=== PATIENT | female | born 1960 | race Caucasian/White ===

== ENCOUNTER 2024-05-24 19:30 | Emergency (ER) | payer MEDICARE, BC, OTHER, SELFPAY ==
--- OUTSIDE RECORDS SUMMARY | 2024-05-24 19:33 | XMS_ITS | Encounter Summary ---
Author Organization [facility] Address [address] [place] [address] Care Team Providers Care Traveler Changer Name Role Phone Patsy Ta MD Primary Care Provider [phone] Encounter Details Date Type Department Care Team (Late st Contact Info) Description 01/18/1998 Outpatient Historical [facility] Internal Medicine - [facility] [address] [facility] [address] [place] [address] [place] [address] [address] Social History Tobacco Use Types Packs/Day Years Used Date Smoking Tobacco: Never Assessed Comments Unknown Sex and Gender Information Value Date Recorded Sex Assigned at Not on file Legal Sex Female 5:02 AM SHELLFISH GROWER Gender Identity Not on file Sexual Orientation Not on file documented as of this encounter Plan of Treatment Not on file documented as of this encounter Visit Diagnoses Not on filedocumented in this encounter Care Teams Traveler Changer Relationship Specialty [place] [address] [facility] [address] [place] [address] PCP - General 11/06/01 documented as of this encounter
--- OUTSIDE RECORDS SUMMARY | 2024-05-24 19:33 | XMS_ITS | Encounter Summary ---
Author Organization [facility] Address [address] [place] [address] Care Team Providers Care Supervisory Clerk Name Role Phone Patsy Ta MD Primary Care Provider [phone] Encounter Details Date Type Department Care Team (Late st Contact Info) Description 07/16/[address] [facility] Internal Medicine - [facility] [address] [address] [facility] [address] [place] [address] [place] [address] [address] Social History Tobacco Use Types Packs/Day Years Used Date Smoking Tobacco: Never Assessed Comments Unknown Sex and Gender Information Value Date Recorded Sex Assigned at Not on file Legal Sex Female 5:02 AM PROGRAM COORDINATOR EXECUTIVE EDUCATION Gender Identity Not on file Sexual Orientation Not on file documented as of this encounter Plan of Treatment Not on file documented as of this encounter Visit Diagnoses Not on filedocumented in this encounter Care Teams Supervisory Clerk Relationship Specialty [place] [address] [facility] [address] [place] [address] PCP - General 11/06/01 documented as of this encounter
--- OUTSIDE RECORDS SUMMARY | 2024-05-24 19:33 | XMS_ITS | Encounter Summary ---
Author Organization [facility] Address [address] [place] [address] Care Team Providers Care Greenhouse Florist Name Role Phone Patsy Ta MD Primary Care Provider [phone] Encounter Details Date Type Department Care Team (Latest Contact Info) Description 04/05/2007 Outpatient Historical [facility] [address] [address] Other Screening Mammogram Social History Tobacco Use Types Packs/Day Years Used Date Smoking Tobacco: Never Assessed Comments Unknown Sex and Gender Information Value Date Recorded Sex Assigned at Not on file Legal Sex Female 5:02 AM EAP COUNSELOR Gender Identity Not on file Sexual Orientation Not on file documented as of this encounter Plan of Treatment Not on file documented as of this encounter Visit Diagnoses Diagnosis Other screening mammogram documented in this encounter Care Teams Greenhouse Florist Relationship Specialty [place] [address] [facility] [address] [place] [address] PCP - General 11/06/01 documented as of this encounter
--- OUTSIDE RECORDS SUMMARY | 2024-05-24 19:33 | XMS_ITS | Encounter Summary ---
Author Organization [facility] Address [address] [place] [address] Care Team Providers Care Server Programmer Name Role Phone Patsy Ta MD Primary Care Provider [phone] Encounter Details Date Type Department Care Team (Late st Contact Info) Description 12/07/1997 Outpatient Historical [facility] Internal Medicine - [facility] [address] [facility] [address] [place] [address] [place] [address] [address] Social History Tobacco Use Types Packs/Day Years Used Date Smoking Tobacco: Never Assessed Comments Unknown Sex and Gender Information Value Date Recorded Sex Assigned at Not on file Legal Sex Female 5:02 AM REHABILITATION CENTER MANAGER Gender Identity Not on file Sexual Orientation Not on file documented as of this encounter Plan of Treatment Not on file documented as of this encounter Visit Diagnoses Not on filedocumented in this encounter Care Teams Server Programmer Relationship Specialty [place] [address] [facility] [address] [place] [address] PCP - General 11/06/01 documented as of this encounter
--- OUTSIDE RECORDS SUMMARY | 2024-05-24 19:33 | XMS_ITS | Encounter Summary ---
Author Organization [facility] Address [address] [place] [address] Care Team Providers Care Zipper Repairer Name Role Phone Patsy Ta MD Primary Care Provider [phone] Encounter Details Date Type Department Care Team (Late st Contact Info) Description 12/06/1997 Outpatient Historical [facility] Internal Medicine - [facility] [address] [facility] [address] [place] [address] [place] [address] [place] [address] [address] Social History Tobacco Use Types Packs/Day Years Used Date Smoking Tobacco: Never Assessed Comments Unknown Sex and Gender Information Value Date Recorded Sex Assigned at Not on file Legal Sex Female 5:02 AM ENVIRONMENTAL MONITORING TECHNICIAN Gender Identity Not on file Sexual Orientation Not on file documented as of this encounter Plan of Treatment Not on file documented as of this encounter Visit Diagnoses Not on filedocumented in this encounter Care Teams Zipper Repairer Relationship Specialty [place] [address] [facility] [address] [place] [address] PCP - General 11/06/01 documented as of this encounter
--- OUTSIDE RECORDS SUMMARY | 2024-05-24 19:33 | XMS_ITS | Encounter Summary ---
Author Organization [facility] Address [address] [place] [address] Care Team Providers Care Roller Bearing Inspector Name Role Phone Patsy Ta MD Primary Care Provider [phone] Encounter Details Date Type Department Care Team (Latest Contact Info) Description 11/06/2001 Outpatient Historical [facility] [place] [address] [address] SCREENING MAMM-MAILG NEOPL-OTHER (Primary Dx) Social History Tobacco Use Types Packs/Day Years Used Date Smoking Tobacco: Never Assessed Comments Unknown Sex and Gender Information Value Date Recorded Sex Assigned at Not on file Legal Sex Female 5:02 AM DIRECTOR PRESALES Gender Identity Not on file Sexual Orientation Not on file documented as of this encounter Plan of Treatment Not on file documented as of this encounter Visit Diagnoses Diagnosis Other screening mammogram- Primary documented in this encounter Care Teams Roller Bearing Inspector Relationship Specialty [place] [address] [facility] [address] [place] [address] PCP - General 11/06/01 documented as of this encounter
--- OUTSIDE RECORDS SUMMARY | 2024-05-24 19:33 | XMS_ITS | Encounter Summary ---
Author Organization [facility] Address [address] [place] [address] Care Team Providers Care Aeronautical Engineering Professor Name Role Phone Patsy Ta MD Primary Care Provider [phone] Encounter Details Date Type Department Care Team (Late st Contact Info) Description 03/08/1998 Outpatient Historical [facility] Internal Medicine - [facility] [address] [facility] [address] [place] [address] [place] [address] [address] Social History Tobacco Use Types Packs/Day Years Used Date Smoking Tobacco: Never Assessed Comments Unknown Sex and Gender Information Value Date Recorded Sex Assigned at Not on file Legal Sex Female 5:02 AM SALES AND SUPPORT CENTER AGENT Gender Identity Not on file Sexual Orientation Not on file documented as of this encounter Plan of Treatment Not on file documented as of this encounter Visit Diagnoses Not on filedocumented in this encounter Care Teams Aeronautical Engineering Professor Relationship Specialty [place] [address] [facility] [address] [place] [address] PCP - General 11/06/01 documented as of this encounter
--- OUTSIDE RECORDS SUMMARY | 2024-05-24 19:33 | XMS_ITS | Encounter Summary ---
Author Organization [facility] Address [address] [place] [address] Care Team Providers Care A P Mechanic Name Role Phone Patsy Ta MD Primary Care Provider [phone] Encounter Details Date Type Department Care Team (Late st Contact Info) Description 03/02/1998 Outpatient Historical [facility] Internal Medicine - [facility] [address] [facility] [address] [place] [address] [place] [address] [address] Social History Tobacco Use Types Packs/Day Years Used Date Smoking Tobacco: Never Assessed Comments Unknown Sex and Gender Information Value Date Recorded Sex Assigned at Not on file Legal Sex Female 5:02 AM VIDEO SYSTEM REPAIRER Gender Identity Not on file Sexual Orientation Not on file documented as of this encounter Plan of Treatment Not on file documented as of this encounter Visit Diagnoses Not on filedocumented in this encounter Care Teams A P Mechanic Relationship Specialty [place] [address] [facility] [address] [place] [address] PCP - General 11/06/01 documented as of this encounter
--- OUTSIDE RECORDS SUMMARY | 2024-05-24 19:33 | XMS_ITS | Encounter Summary ---
Author Organization [facility] Address [address] [place] [address] Care Team Providers Care Tipping Machine Operator Automatic Name Role Phone Patsy Ta MD Primary Care Provider [phone] Encounter Details Date Type Department Care Team (Latest Contact Info) Description 12/04/2005 Outpatient Historical [facility] [place] [address] [facility] [address] [place] [address] Other Screening Mammogram (Primary Dx) Social History Tobacco Use Types Packs/Day Years Used Date Smoking Tobacco: Never Assessed Comments Unknown Sex and Gender Information Value Date Recorded Sex Assigned at Not on file Legal Sex Female 5:02 AM ADMINISTRATION DEAN Gender Identity Not on file Sexual Orientation Not on file documented as of this encounter Plan of Treatment Not on file documented as of this encounter Visit Diagnoses Diagnosis Other screening mammogram- Primary documented in this encounter Care Teams Tipping Machine Operator Automatic Relationship Specialty [place] [address] [facility] [address] [place] [address] PCP - General 11/06/01 documented as of this encounter
--- OUTSIDE RECORDS SUMMARY | 2024-05-24 19:33 | XMS_ITS | Encounter Summary ---
Author Organization [facility] Address [address] [place] [address] Care Team Providers Care Scrap Kettle Tender Name Role Phone Patsy Ta MD Primary Care Provider [phone] Encounter Details Date Type Department Care Team (Late st Contact Info) Description 07/27/1998 Outpatient Historical [facility] Internal Medicine - [facility] [address] [facility] [address] [place] [address] [place] [address] [address] Social History Tobacco Use Types Packs/Day Years Used Date Smoking Tobacco: Never Assessed Comments Unknown Sex and Gender Information Value Date Recorded Sex Assigned at Not on file Legal Sex Female 5:02 AM CAR SALES REPRESENTATIVE Gender Identity Not on file Sexual Orientation Not on file documented as of this encounter Plan of Treatment Not on file documented as of this encounter Visit Diagnoses Not on filedocumented in this encounter Care Teams Scrap Kettle Tender Relationship Specialty [place] [address] [facility] [address] [place] [address] PCP - General 11/06/01 documented as of this encounter
--- OUTSIDE RECORDS SUMMARY | 2024-05-24 19:33 | XMS_ITS | Encounter Summary ---
Author Organization [facility] Address [address] [place] [address] Care Team Providers Care News Broadcaster Name Role Phone Patsy Ta MD Primary Care Provider [phone] Encounter Details Date Type Department Care Team (Late st Contact Info) Description 12/01/1997 Outpatient Historical [facility] Internal Medicine - [facility] [address] [facility] [address] [place] [address] [place] [address] [address] Social History Tobacco Use Types Packs/Day Years Used Date Smoking Tobacco: Never Assessed Comments Unknown Sex and Gender Information Value Date Recorded Sex Assigned at Not on file Legal Sex Female 5:02 AM ICT SALES ASSISTANT Gender Identity Not on file Sexual Orientation Not on file documented as of this encounter Plan of Treatment Not on file documented as of this encounter Visit Diagnoses Not on filedocumented in this encounter Care Teams News Broadcaster Relationship Specialty [place] [address] [facility] [address] [place] [address] PCP - General 11/06/01 documented as of this encounter
--- OUTSIDE RECORDS SUMMARY | 2024-05-24 19:33 | XMS_ITS | Encounter Summary ---
Author Organization [facility] Address [address] [place] [address] Care Team Providers Care Caseworker Intake Name Role Phone Patsy Ta MD Primary Care Provider [phone] Encounter Details Date Type Department Care Team (Late st Contact Info) Description 10/11/1999 Outpatient Historical [facility] Internal Medicine - [facility] [address] [facility] [address] [place] [address] [place] [address] [address] Social History Tobacco Use Types Packs/Day Years Used Date Smoking Tobacco: Never Assessed Comments Unknown Sex and Gender Information Value Date Recorded Sex Assigned at Not on file Legal Sex Female 5:02 AM WILDLIFE FORENSIC GENETICIST Gender Identity Not on file Sexual Orientation Not on file documented as of this encounter Plan of Treatment Not on file documented as of this encounter Visit Diagnoses Not on filedocumented in this encounter Care Teams Caseworker Intake Relationship Specialty [place] [address] [facility] [address] [place] [address] PCP - General 11/06/01 documented as of this encounter
--- OUTSIDE RECORDS SUMMARY | 2024-05-24 19:33 | XMS_ITS | Encounter Summary ---
Author Organization [facility] Address [address] [place] [address] Care Team Providers Care Loss Prevention Manager Name Role Phone Patsy Ta MD Primary Care Provider [phone] Encounter Details Date Type Department Care Team (Late st Contact Info) Description 08/29/1999 Outpatient Historical [facility] Internal Medicine - [facility] [address] [facility] [address] [place] [address] [place] [address] [address] Social History Tobacco Use Types Packs/Day Years Used Date Smoking Tobacco: Never Assessed Comments Unknown Sex and Gender Information Value Date Recorded Sex Assigned at Not on file Legal Sex Female 5:02 AM CANDLE MOLDER MACHINE Gender Identity Not on file Sexual Orientation Not on file documented as of this encounter Plan of Treatment Not on file documented as of this encounter Visit Diagnoses Not on filedocumented in this encounter Care Teams Loss Prevention Manager Relationship Specialty [place] [address] [facility] [address] [place] [address] PCP - General 11/06/01 documented as of this encounter
--- OUTSIDE RECORDS SUMMARY | 2024-05-24 19:33 | XMS_ITS | Encounter Summary ---
Author Organization [facility] Address [address] [place] [address] Care Team Providers Care Associate Director Regulatory Affairs Name Role Phone Patsy Ta MD Primary Care Provider [phone] Encounter Details Date Type Department Care Team (Latest Contact Info) Description 02/20/1998 Outpatient Historical [facility] Landon Castanead MD [address] [place] [address] Lump or mass in breast (Primary Dx) Social History Tobacco Use Types Packs/Day Years Used Date Smoking Tobacco: Never Assessed Comments Unknown Sex and Gender Information Value Date Recorded Sex Assigned at Not on file Legal Sex Female 5:02 AM POWER ENGINEER Gender Identity Not on file Sexual Orientation Not on file documented as of this encounter Plan of Treatment Not on file documented as of this encounter Visit Diagnoses Diagnosis Lump or mass in breast- Primary documented in this encounter Care Teams Associate Director Regulatory Affairs Relationship Specialty [place] [address] [facility] [address] [place] [address] PCP - General 11/06/01 documented as of this encounter
--- OUTSIDE RECORDS SUMMARY | 2024-05-24 19:33 | XMS_ITS | Encounter Summary ---
Author Organization [facility] Address [address] [place] [address] Care Team Providers Care Senior Research Executive Name Role Phone Patsy Ta MD Primary Care Provider [phone] Encounter Details Date Type Department Care Team (Latest Contact Info) Description 07/26/1999 Outpatient Historical HIS [facility] [place] [address] [facility] [address] [place] [address] Other screening mammogram (Primary Dx) Social History Tobacco Use Types Packs/Day Years Used Date Smoking Tobacco: Never Assessed Comments Unknown Sex and Gender Information Value Date Recorded Sex Assigned at Not on file Legal Sex Female 5:02 AM QUALITY ASSURANCE ENGINEER Gender Identity Not on file Sexual Orientation Not on file documented as of this encounter Plan of Treatment Not on file documented as of this encounter Visit Diagnoses Diagnosis Other screening mammogram- Primary documented in this encounter Care Teams Senior Research Executive Relationship Specialty [place] [address] [facility] [address] [place] [address] PCP - General 11/06/01 documented as of this encounter
--- OUTSIDE RECORDS SUMMARY | 2024-05-24 19:33 | XMS_ITS | Encounter Summary ---
Author Organization [facility] Address [address] [place] [address] Care Team Providers Care Manager Leasing Name Role Phone Patsy Ta MD Primary Care Provider [phone] Encounter Details Date Type Department Care Team (Late st Contact Info) Description 09/04/1998 Outpatient Historical [facility] Internal Medicine - [facility] [address] [facility] [address] [place] [address] [place] [address] [address] Social History Tobacco Use Types Packs/Day Years Used Date Smoking Tobacco: Never Assessed Comments Unknown Sex and Gender Information Value Date Recorded Sex Assigned at Not on file Legal Sex Female 5:02 AM FLIGHT NURSE Gender Identity Not on file Sexual Orientation Not on file documented as of this encounter Plan of Treatment Not on file documented as of this encounter Visit Diagnoses Not on filedocumented in this encounter Care Teams Manager Leasing Relationship Specialty [place] [address] [facility] [address] [place] [address] PCP - General 11/06/01 documented as of this encounter
--- OUTSIDE RECORDS SUMMARY | 2024-05-24 19:33 | XMS_ITS | Clinical Summary ---
Author Organization [facility] Address [address] [place] [address] Phone Care Team Providers Care Hog Handler Name Role Phone Patsy Ta MD Primary Care Provider [phone] Allergies No known active allergies Medications levothyroxine 100 mcg tablet Take 100 mcg by mouth daily contact lens polisher. Active citalopram (CeleXA) 20 mg tablet Take 20 mg by mouth daily at bedtime. Active quinapril (ACCUPRIL) 20 mg tablet Take 40 mg by mouth daily . Active est estrogens-meth ylTESTOSTERone (EEMT) 1.25-2.5 mg tablet Take 1 Tablet by mouth see administration instructions. Active gabapentin (NEURONTIN) 300 mg capsule Take 300 mg by mouth 2 times daily. Active nabumetone (RELAFEN) 500 mg tablet Take 500 mg by mouth 2 times daily. Active simvastatin (ZOCOR) 20 mg tablet Take 20 mg by mouth daily at bedtime. Active fexofenadine (MANUEL) 60 mg tablet Take 60 mg by mouth daily. Active montelukast (SINGULAIR) 10 mg tablet Take 10 mg by mouth daily at bedtime. Active fluticasone propionate (FLONASE) 50 mcg/spray [place], Suspension nasal inhaler Administer 2 Sprays in each nostril daily. Active hydroCHLOROthi azide 25 mg tablet Take 25 mg by mouth daily. Active acetaminophen (TYLENOL) 325 mg tablet Take 325 mg by mouth daily. Active Social History Tobacco Use Types Packs/Day Years Used Date Smoking Tobacco: Never Smokeless Tobacco: Never Alcohol Use Standard Drinks/Week Comments Yes 0 (1 standard drink = 0.6 oz pur e alcohol) occ Comments No Sex and Gender Information Value Date Recorded Sex Assigned at Not on file Legal Sex Female 5:02 AM GUEST SERVICES DIRECTOR Gender Identity Not on file Sexual Orientation Not on file Last Filed Vital Signs Vital Sign Reading Time Taken Comments Blood Pressure 146/82 03/01/2019 12:50 PM GUEST SERVICES DIRECTOR Pulse 62 03/01/2019 12:50 PM GUEST SERVICES DIRECTOR Temperature 36.7 ??C (98 ??F) 03/01/2019 12:21 PM GUEST SERVICES DIRECTOR Respiratory Rate 17 03/01/2019 12:50 PM GUEST SERVICES DIRECTOR Oxygen Saturation 100% 03/01/2019 12:50 PM GUEST SERVICES DIRECTOR Inhaled Oxygen Concentration - - Weight 83.5 kg (184 lb 1.9 oz) 03/01/2019 8:58 A M GUEST SERVICES DIRECTOR Height 162.6 cm (5' 4 ) 02/28/2019 11:26 AM GUEST SERVICES DIRECTOR Body Mass Index 31.6 02/28/2019 11:26 AM GUEST SERVICES DIRECTOR Plan of Treatment Health Maintenance Due Date Last Done Comments FIT-DNA Q 3 years 02/17/2004 FIT/FOBT Q 1 year 02/17/2004 Flex Sig/CT Colonography Q 5 years 02/17/2004 PNEUMOCOCCAL VACCINE 65+ YEA RS (1 of 1 - PCV) 2009 ZOSTER VACCINE (1 of 2) 2009 BREAST CANCER SCREENING 05/24/2021 05/24/2020, 05/14 DTAP/TDAP/TD VACCINES (2 - Td or Tdap) 08/17/2023 INFLUENZA VACCINE (#1) 2023 02/25/2018, 2015 COLORECTAL SCREENING 06/30/2029 07/01/2019 Colorectal Cancer Screening 06/30/2029 RSV VACCINE (60+ or ) (1 - 1-dose 75+ series) 2034 OSTEOPOROSIS SCREENING Completed 05/14/2018 Medical Devices Implanted Type Area Production Clerks Supervisor Device Identifier Shelf Expiration Date Model / Serial / Lot Screw 2.2-S Diam2.2 Lg11mm Implanted:Qty: 1 on 03/01/2019 by Delroy Veliz DPM at [facility] Right: Toe 02/17/2023 S22 [id number] / / [id number] Description:item add c.s Procedures Procedure Name Priority Date/Time Associated Diagnosis Comments MAMMO SCREEN BILAT W OR WO CAD Routine 05/24/2020 3:17 PM GUEST SERVICES DIRECTOR Breast cancer screening by mammogram XR DEXA BONE DENSITY AXIAL 1 OR MORE SITES Routine 05/14/2018 9:03 AM GUEST SERVICES DIRECTOR Screening for osteoporosis from Last 3 Months or Most Recently Relevant to Health Maintenance Results * MAMMO SCREEN BILAT W OR WO CAD (05/24/2020 3:17 PM GUEST SERVICES DIRECTOR) Anatomical Region Laterality Modality Breast Bilateral Mammography 05/24/2020 3:17 PM GUEST SERVICES DIRECTOR Impressions 05/24/2020 3:53 PM GUEST SERVICES DIRECTOR IMPRESSION: No mammographic evidence of malignancy. RECOMMENDATIONS: Routine screening mammogram in one year. DICTATION LOCATION: [facility] Narrative 05/24/2020 3:53 PM GUEST SERVICES DIRECTOR MAMMO SCREEN BILAT W OR WO CAD DATE: 05/24/2020 3:17 PM HISTORY: Routine screening. TECHNIQUE: Full field digital craniocaudal and mediolateral oblique projections of both breasts were obtained. Computer aided diagnosis was performed. COMPARISON: 2016 and 2014. BREAST COMPOSITION: Scattered fibroglandular densities. FINDINGS: No suspicious mass, suspicious microcalcifications, or architectural distortion in either breast is identified. Since the prior study, there has been no significant interval change. The computer aided diagnosis detects no significant abnormality. OVERALL FINAL ASSESSMENT: ??BI-RADS CATEGORY 1 : Negative Procedure Note Brayan Aguirre MD - 05/24/2020 MAMMO SCREEN BILAT W OR WO CAD DATE: 05/24/2020 3:17 PM HISTORY: Routine screening. TECHNIQUE: Full field digital craniocaudal and mediolateral oblique projections of both breasts were obtained. Computer aided diagnosis was performed. COMPARISON: 2016 and 2014. BREAST COMPOSITION: Scattered fibroglandular densities. FINDINGS: No suspicious mass, suspicious microcalcifications, or architectural distortion in either breast is identified. Since the prior study, there has been no significant interval change. The computer aided diagnosis detects no significant abnormality. OVERALL FINAL ASSESSMENT: BI-RADS CATEGORY 1 : Negative IMPRESSION: No mammographic evidence of malignancy. RECOMMENDATIONS: Routine screening mammogram in one year. DICTATION LOCATION: [facility] us Patsy Ta MD MAMMO ORDERABLES Final Resul t * XR DEXA BONE DENSITY AXIAL 1 OR MORE SITES (05/14/2018 9:03 AM GUEST SERVICES DIRECTOR) Anatomical Region Laterality Modality Computed Radiogr aphy 05/14/2018 9:12 AM GUEST SERVICES DIRECTOR Narrative 05/14/2018 1:36 PM GUEST SERVICES DIRECTOR SUMMARY DEXA REPORT DATE: 05/14/2018 9:03 AM INDICATION: Post menopausal. History of thyroid medication and family history of osteoporosis. FINDINGS: The lowest bone mineral density is in the lumbar spine measuring 1.005 g/sq cm with a young adult T score of -1.4. This represents osteopenia. Please refer to the full report available in [facility] under the PACS Images tab. ??If a faxed copy is needed, please call [phone]. DICTATION LOCATION: [address] Procedure Note Sinan Burgess MD - 05/14/2018 SUMMARY DEXA REPORT DATE: 05/14/2018 9:03 AM INDICATION: Post menopausal. History of thyroid medication and family history of osteoporosis. FINDINGS: The lowest bone mineral density is in the lumbar spine measuring 1.005 g/sq cm with a young adult T score of -1.4. This represents osteopenia. Please refer to the full report available in [facility] under the PACS Images tab. If a faxed copy is needed, please call [phone]. DICTATION LOCATION: Location [address] [place] [address] Patsy Ta MD DIAGNOSTIC IMAGING ORDERABLE S Final Result from Last 3 Months or Most Recently Relevant to Health Maintenance Insurance [employer] [facility] [employer] Advance Directives For more information, please contact: [phone] * Full Code (Latest Code Status on File) Date Activated Date Inactivated Comments 03/01/2019 9:30 AM 03/01/2019 3:07 PM Care Teams Hog Handler Relationship Specialty [place] [address] [place] [address] PCP - General 11/06/01
--- OUTSIDE RECORDS SUMMARY | 2024-05-24 19:33 | XMS_ITS | Encounter Summary ---
Author Organization [facility] Address [address] [place] [address] Care Team Providers Care Quality Supervisor Name Role Phone Patsy Ta MD Primary Care Provider [phone] Encounter Details Date Type Department Care Team (Late st Contact Info) Description 08/29/1998 Outpatient Historical [facility] Guillermo Galvez, [address] [facility] [address] [place] [address] Er, Authorized P NO ADDRESS ON FILE Abdominal pain, other specified site (Primary Dx) Social History Tobacco Use Types Packs/Day Years Used Date Smoking Tobacco: Never Assessed Comments Unknown Sex and Gender Information Value Date Recorded Sex Assigned at Not on file Legal Sex Female 5:02 AM SWAGER OPERATOR Gender Identity Not on file Sexual Orientation Not on file documented as of this encounter Plan of Treatment Not on file documented as of this encounter Visit Diagnoses Diagnosis Abdominal pain, other specified site- Primary documented in this encounter Care Teams Quality Supervisor Relationship Specialty [place] [address] [place] [id number] PCP - General 11/06/01 documented as of this encounter
--- OUTSIDE RECORDS SUMMARY | 2024-05-24 19:33 | XMS_ITS | Encounter Summary ---
Author Organization [facility] Address [address] [place] [address] Care Team Providers Care Buildings And Grounds Superintendent Name Role Phone Patsy Ta MD Primary Care Provider [phone] Encounter Details Date Type Department Care Team (Latest Contact Info) Description 02/10/2004 Outpatient Historical [facility] [place] [address] [address] SCREENING MAMM-MAILG NEOPL-OTHER (Primary Dx) Social History Tobacco Use Types Packs/Day Years Used Date Smoking Tobacco: Never Assessed Comments Unknown Sex and Gender Information Value Date Recorded Sex Assigned at Not on file Legal Sex Female 5:02 AM PROOF SORTER Gender Identity Not on file Sexual Orientation Not on file documented as of this encounter Plan of Treatment Not on file documented as of this encounter Visit Diagnoses Diagnosis Other screening mammogram- Primary documented in this encounter Care Teams Buildings And Grounds Superintendent Relationship Specialty [place] [address] [facility] [address] [place] [address] PCP - General 11/06/01 documented as of this encounter
--- OUTSIDE RECORDS SUMMARY | 2024-05-24 19:33 | XMS_ITS | Data Portability ---
Author Organization [facility] Address [address] [place] [address] Care Team Providers Care Teacher Selection Specialist Name Role Phone LORRAINE JO Referring Provider Assessment No assessment recorded. Plan of Treatment Reminders Order Date Submit Date Provider Last Modified By Organization Details Last Modified Time Details Appointments None record ed. Lab None record ed. Referral None record ed. Procedures None record ed. Surgeries None record ed. Imaging None record ed. Medication Orders None record ed. Patient TargetsNo targets recorded. Patient InstructionsNo instructions recorded. Reason for Referral None Reported. Procedures Surgical History Date Name Laterality Status Provider Name and Address Organization Details Recorded Time 03/30/2019 Sleep Study completed Bill De La Cruz [facility] 03/31/2019 12:24:52 Imaging Results None recorded. Procedure Notes None recorded. Medical Equipment None Reported. Vitals Date Recorded Body height Body mass index (BMI) Body weight Provider Name and Address Organization Details Last Updated DateTime 03/30/2019 162.56 cm 31.4 kg/m2 44707.4 g Jeffery Jefferson [facility] 03/30/2019 12:02:27 Social History None recorded. Functional Status None recorded. Mental Status None recorded. Family History Nothing Reported. Medical History No medical history recorded. Gynecological HistoryNo gynecological history recorded. Obstetrics History GPAL:G 0 P 0 0 0 0 Past Encounters Encounter ID Performer Location Encounter Start Date Encounter Closed Date Diagnosis/Indication Diagnosis SNOMED-CT Code Diagnosis ICD10 Code Diagnosis Note [id number] Landon Cornejo MD DAB, F.C.C.P. [id number] [id number][id number] [place] [address] 03/30/2019 11:38:40 03/31/2019 11:48:52 Obstructive sleep apnea of adult 3290255034 103 G47.33 Health Concerns Section Related Observation LastModified by Organization Detai ls LastModified Time None Recorded Concern Status LastModified by Organization Details LastModified Time None Recorded Advance Directives Directive None Recorded Payers Encounter Date Sequence Insurance Name Policy Number Policy Sam Covered Member ID Sam Member ID Guarantor Name 03/30/2019 1 [place] [employer] [facility] [employer] [id number] Elisa Iglesias [id number] Elias Iglesias OBGyn Episode No OBEpisode recorded.
--- OUTSIDE RECORDS SUMMARY | 2024-05-24 19:33 | XMS_ITS | Encounter Summary ---
Author Organization [facility] Address [address] [place] [address] Care Team Providers Care Staff Assistant Name Role Phone Patsy Ta MD Primary Care Provider [phone] Encounter Details Date Type Department Care Team (Late st Contact Info) Description 02/20/1998 Outpatient Historical [facility] MRI DEPT Landon Gibbs MD [address] [place] [id number] Social History Tobacco Use Types Packs/Day Years Used Date Smoking Tobacco: Never Assessed Comments Unknown Sex and Gender Information Value Date Recorded Sex Assigned at Not on file Legal Sex Female 5:02 AM REFRIGERATION MECHANIC Gender Identity Not on file Sexual Orientation Not on file documented as of this encounter Plan of Treatment Not on file documented as of this encounter Visit Diagnoses Not on filedocumented in this encounter Care Teams Staff Assistant Relationship Specialty [place] [address] [facility] [address] [place] [address] PCP - General 11/06/01 documented as of this encounter
--- OUTSIDE RECORDS SUMMARY | 2024-05-24 19:33 | XMS_ITS | Encounter Summary ---
Author Organization [facility] Address [address] [place] [address] Care Team Providers Care Drill Press Operator Helper Name Role Phone Patsy Ta MD Primary Care Provider [phone] Encounter Details Date Type Department Care Team (Latest Contact Info) Description 03/21/1998 Outpatient Historical [facility] Landon Gibbs MD [address] [place] [id number] Inguinal hernia without mention of obstruction or gangrene, unilateral or unspecified, (not specified as recurrent) (Primary Dx) Social History Tobacco Use Types Packs/Day Years Used Date Smoking Tobacco: Never Assessed Comments Unknown Sex and Gender Information Value Date Recorded Sex Assigned at Not on file Legal Sex Female 5:02 AM CALCULATING MACHINE MECHANIC Gender Identity Not on file Sexual Orientation Not on file documented as of this encounter Plan of Treatment Not on file documented as of this encounter Visit Diagnoses Diagnosis Inguinal hernia without mention of obstruction or gangrene, unilateral or unspecified, (not specified as recurrent)- Primary documented in this encounter Care Teams Drill Press Operator Helper Relationship Specialty [place] [address] [place] [address] PCP - General 11/06/01 documented as of this encounter
[2024-05-24 19:53] VITALS: BP 145/77; PULSE 64; RESP 16; TEMP 36.4; O2SAT 100
--- NOTE | 2024-05-24 19:54 | ED_ITS ---
HPI - Female Genitourinary General Chief complaint: Urogenital-Female Stated complaint: UTI Time Seen by Provider: 05/24/24 19:55 Source: patient, RN notes reviewed and old records reviewed Mode of arrival: ambulatory Limitations: no limitations Related Data Home Medications ?Medication ?Instructions ?Recorded ?Confirmed ?Last Taken ?Type budesonide 3 mg mg PO 05/24/24 Unknown History capsule,delayed,extended release budesonide-formoterol HFA 160 inhalation 05/24/24 Unknown History mcg-4.5 mcg/actuation aerosol inhaler gabapentin 300 mg capsule mg 05/24/24 Unknown History levothyroxine 100 mcg tablet mcg 05/24/24 Unknown History meloxicam 7.5 mg tablet mg 05/24/24 Unknown History montelukast 10 mg tablet mg 05/24/24 Unknown History Allergies Allergy/AdvReac Type Severity Reaction Status Date / Time No Known Allergies Allergy Unverified 05/24/24 20:01 Review of Systems Review of Systems: All systems reviewed & are unremarkable except as noted in HPI and below Constitutional: Constitutional: Reports no additional constitutional complaints ENT: Reports system reviewed and no additional complaints, except as documented Cardiovascular: Cardiovascular: Reports no additional cardiovascular complaints Respiratory: Respiratory: Reports no additional respiratory complaints Gastrointestinal: Gastrointestinal: Reports no additional gastrointestinal complaints PMFSH Comments At the time of my signature, I reviewed and agree with the nursing past medical, surgical, social, and family history. There is no relevant family history pertinent to the patient complaint. Exam Const: General: cooperative, no acute distress, alert and awake Or ientation/consciousness: oriented to person, oriented to place and oriented to time HENMT: Head: normal to inspection Resp: Effort & Inspection: normal respiratory effort and able to speak in complete sentences Auscultation: clear to auscultation bilaterally, no crackles, no rales, no rhonchi and no wheezes Cardio: Palpation: normal PMI Rate: regular rate Rhythm: regular rhythm Heart sounds: S1 normal heart sound present and S2 normal heart sound present Neuro: General: oriented to person, oriented to place and oriented to time Cranial nerves: Yes CN's II-XII intact bilaterally Psych: Appearance: grossly normal Thought process: Normal thought process present Insight: Good insight present (Psych) Judgement: Good judgement present (Psych) Course Course Level of Care: Express Care Visit Vital Signs Vital signs: Vital Signs Temperature 97.6 F 05/24/24 19:53 Pulse Rate 64 05/24/24 19:53 Respiratory Rate 16 05/24/24 19:53 Blood Pressure 145/77 H 05/24/24 19:53 Pulse Oximetry 100 05/24/24 19:53 Oxygen Delivery Room Air 05/24/24 19:53 Temperature 97.6 F 05/24/24 19:53 Pulse Rate 64 05/24/24 19:53 Respiratory Rate 16 05/24/24 19:53 Blood Pressure 145/77 H 05/24/24 19:53 Pulse Oximetry 100 05/24/24 19:53 Oxygen Delivery Room Air 05/24/24 19:53 Reviewed Discharge Plan Discharge Clinical Impression: Acute UTI Patient Disposition: Home, Self-Care Condition: Stable Instructions: Antibiotic Form, Urinary Tract Infection in Women (ED) Additional Instructions: take medications as prescribed. Follow with primary care provider. Emergency department for any new or worse symptoms Patient Language: New Zealander Prescriptions: New nitrofurantoin monohyd/m-cryst [Macrobid] 100 mg capsule 100 mg PO Q12H 5 Days Qty: 10 0RF Rx Instructions: must administer with a meal/food No Action meloxicam 7.5 mg tablet levothyroxine 100 mcg tablet gabapentin 300 mg capsule montelukast 10 mg tablet budesonide 3 mg capsule,delayed,extend.release PO budesonide-formoterol 160-4.5 mcg/actuation HFA aerosol inhaler INHALATION Follow-up/Referrals: Keyon,Patsy Escamilla [Other] - 2 Weeks Time of Disposition: 20:06
[2024-05-24 20:03] LABS: EDUAAPPEAR Cloudy; EDUABILI Negative (Negative); EDUABLOOD 3+ (Negative); EDUACOLOR1 Yellow; EDUAGLUCOSE Negative (Negative); EDUAKETONE Negative (Negative); EDUALEUKO 3+ (Negative); EDUANITRATE Positive (Negative); EDUAPROTEIN 2+ (Negative); EDUAUROBILI 0.2
== END 2024-05-24 20:20 | disposition home or self-care (01) ==
PROVIDERS: Emergency Provider Nurse Practitioner Family
DX: N39.0 Urinary tract infection, site not specified (principal); B96.20 Unspecified Escherichia coli [E. coli] as the cause of diseases classified elsewhere; E03.9 Hypothyroidism, unspecified
CPT/HCPCS: 81003; 87086; 87186; 99203; G0463

== ENCOUNTER 2024-10-07 18:16 | Emergency (ER) | payer OTHER, BC, SELFPAY ==
[2024-10-07 18:17] VITALS: BP 126/78; PULSE 86; RESP 14; TEMP 37.1; O2SAT 94
--- NOTE | 2024-10-07 19:04 | ED_ITS ---
HPI - General Adult General Chief complaint: Alcohol Stated complaint: etoh+ Time Seen by Provider: 10/07/24 18:53 History of Present Illness HPI narrative: This is a 64-year-old female presenting ED for alcohol intoxication. Patient passed out in her car earlier. [place] police found her and called EMS and recommended she come to the hospital to be evaluated. At this time the patient is resting comfortably in bed. She admits to drinking wine. She has no physical complaints. She does not want to be in the hospital. Related Data Home Medications ?Medication ?Instructions ?Recorded ?Confirmed ?Last Taken ?Type budesonide 3 mg mg PO 05/24/24 Unknown History capsule,delayed,extended release budesonide-formoterol HFA 160 inhalation 05/24/24 Unknown History mcg-4.5 mcg/actuation aerosol inhaler gabapentin 300 mg capsule mg 05/24/24 Unknown History levothyroxine 100 mcg tablet mcg 05/24/24 Unknown History meloxicam 7.5 mg tablet mg 05/24/24 Unknown History montelukast 10 mg tablet mg 05/24/24 Unknown History Allergies Allergy/AdvReac Type Severity Reaction Status Date / Time No Known Allergies Allergy Unverified 05/24/24 20:01 Exam Narrative: APPEARANCE: No apparent distress. Head: atraumatic. EYES: EOMI, NOSE: Atraumatic NECK: Trachea midline RESPIRATORY: No increased rate of breathing clear to auscultation CARDIOVASCULAR: RRR, no peripheral edema ABDOMINAL: Non-distended soft nontender MUSCULOSKELETAl: No obvious deformities NEURO: Alert. Moving 4/4 extremities SKIN:: Warm, dry. Normal color PSYCHIATRIC: Normal affect Course Vital Signs Vital signs: Vital Signs Temperature 98.8 F 10/07/24 18:17 Pulse Rate 86 10/07/24 18:17 Respiratory Rate 14 10/07/24 18:17 Blood Pressure 126/78 10/07/24 18:17 Pulse Oximetry 94 10/07/24 18:17 Oxygen Delivery Room Air 10/07/24 18:17 Temperature 98.8 F 10/07/24 18:17 Pulse Rate 86 10/07/24 18:17 Respiratory Rate 14 10/07/24 18:17 Blood Pressure 126/78 10/07/24 18:17 Pulse Oximetry 94 10/07/24 18:17 Oxygen Delivery Room Air 10/07/24 18:17 Medical Decision Making MDM Narrative Medical decision making narrative: -Course: 64-year-old female presenting intoxicated with alcohol. She is alert and oriented. She is able to walk with steady gait. Her vital signs are stable physical exam is benign. Patient does not want to be in the hospital. I recheck her son and he is coming to pick her up. Patient discharged to family custody. Given return precautions. Vital Signs Vital Signs: Vital Signs Temperature 98.8 F 10/07/24 18:17 Pulse Rate 86 10/07/24 18:17 Respiratory Rate 14 10/07/24 18:17 Blood Pressure 126/78 10/07/24 18:17 Pulse Oximetry 94 10/07/24 18:17 Oxygen Delivery Room Air 10/07/24 18:17 Temperature 98.8 F 10/07/24 18:17 Pulse Rate 86 10/07/24 18:17 Respiratory Rate 14 10/07/24 18:17 Blood Pressure 126/78 10/07/24 18:17 Pulse Oximetry 94 10/07/24 18:17 Oxygen Delivery Room Air 10/07/24 18:17 Discharge Plan Discharge Clinical Impression: Alcoholic intoxication Patient Disposition: Home Condition: Stable Instructions: Antibiotic Form, Abuse of Alcohol (ED) Additional Instructions: Please [facility]up with the [facility] for further treatment of your alcohol use disorder. Return if you develop any new or worsening symptoms. Patient Language: Swedish Prescriptions: No Action meloxicam 7.5 mg tablet levothyroxine 100 mcg tablet gabapentin 300 mg capsule montelukast 10 mg tablet budesonide 3 mg capsule,delayed,extend.release PO budesonide-formoterol 160-4.5 mcg/actuation HFA aerosol inhaler INHALATION nitrofurantoin monohyd/m-cryst [Macrobid] 100 mg capsule 100 mg PO Q12H 5 Days Qty: 10 0RF Rx Instructions: must administer with a meal/food Follow-up/Referrals: Keyon,Patsy Escamilla [Other]
[2024-10-07 20:08] VITALS: BP 134/81; PULSE 79; RESP 18; O2SAT 96
== END 2024-10-07 20:11 | disposition home or self-care (01) ==
LOC: ANHED 19:18
PROVIDERS: Emergency Provider Emergency Medicine
DX: F10.129 Alcohol abuse with intoxication, unspecified (principal)
CPT/HCPCS: 99281

== ENCOUNTER 2025-04-04 10:01 | Outpatient (CLI) | payer OTHER, BC, SELFPAY ==
--- OUTSIDE RECORDS SUMMARY | 2025-01-25 08:40 | XMS_ITS ---
Author Organization [facility]ly [facility], later [facility] Address [address] [place] [address] Phone [phone] Care Team Providers Care Cut Out Machine Operator Name Role Phone Nam Uribe APRN Primary Care Provider REASON FOR VISIT 1 month MAT Vivitrol. Scheduling in advance b/c it will need to be delivered from [facility] in advance. Social History Sex Observation Social History Observation Description Sex Observation Female Sexual Orientation Social History Observation Description Sexual Orientation Straight or heterose xual Gender Identity Social History Observation Description Gender Identity Female Encounters Date Time Type Facility Location Provider Diagnosis 01/25/2025 08:40 AM Office Visit [facility] [place] [place] [address] Nam Uribe Plan Of Treatment Next Appt Details Provider Name:Giovanni ochoa, 05/02/2025 09:00:00 AM, [place] [address] [place], [address], Medical (General) History Medical History History ICD Code Hypothyroidism asthma colitis endometriosis Vitamin b12 deficiency Alcohol use disorder Irritable bowel syndrome Hypertension Surgical History Surgery Date(Month/Year) TOTAL HYSTERECTOMY 04/2000 cholecystectomy cervical fusion maniscus repair right and left c section hernia repair x 2 bunionectomy gastric bypass Hospitalization History Reason Date(Month/Year) Progress Notes * Elisa IGLESIAS SDOB:1960 (65 yo F)Acc No.[id number]:01/25/2025 UNLOCKED PROGRESS NOTE Patient: Elisa VINSON Provider: Quan Uribe, MSN, ASSISTANT SPA MANAGER, COURT USHER-C :1960 A ge:64 Y S ex:Female Date:01/25/2025 Address:[address] [place], [place] [id number] Subjective: * Chief Complaints: * 1 . 1 month MAT Vivitrol. Scheduling in advance b/c it will need to be delivered from [facility] in advance.. * Screening: * * Medical History: Objective: * Vitals: Assessment: Plan: * Treatment: * Care Plan Details* * Electronic signature of Belén Uribe APRN, [id number] on 04/04/2025 at 11:32 AM INCOMING INSPECTOR Sign off status: Pending * Provider: Quan Uribe, MSN, ASSISTANT SPA MANAGER, COURT USHER-C Date: 1 Generated for Humberto betancourt/Josue/Elenaitting on: 06/05/2024 11:32 AM INCOMING INSPECTOR
--- OUTSIDE RECORDS SUMMARY | 2025-01-25 09:00 | XMS_ITS ---
Author Organization [facility] Address [address] [place] [address] Phone [phone] Care Team Providers Care Medical Csr Name Role Phone Nam Uribe APRN Primary Care Provider Giovanni Zarate [phone] REASON FOR VISIT q monthly B12 injection Social History Sex Observation Social History Observation Description Sex Observation Female Sexual Orientation Social History Observation Description Sexual Orientation Straight or heterose xual Gender Identity Social History Observation Description Gender Identity Female Encounters Date Time Type Facility Location Provider Diagnosis 01/25/2025 09:00 AM Office Visit [facility] [address] [place] [address] Giovanni Zarate Plan Of Treatment Next Appt Details Provider Name:Giovanni ochoa, 05/02/2025 09:00:00 AM, [address], [place], [address], Medical (General) History Medical History History ICD Code Hypothyroidism asthma colitis endometriosis Vitamin b12 deficiency Alcohol use disorder Irritable bowel syndrome Hypertension Surgical History Surgery Date(Month/Year) TOTAL HYSTERECTOMY 04/2000 cholecystectomy cervical fusion maniscus repair right and left c section hernia repair x 2 bunionectomy gastric bypass Hospitalization History Reason Date(Month/Year) Progress Notes * Elisa IGLESIAS SDOB:1960 (65 yo F)Acc No.[id number]:01/25/2025 UNLOCKED PROGRESS NOTE Progress Note Patient: Elisa VINSON Provider: Jeanette Zarate APN :1960 A ge:64 Y S ex:Female Date:01/25/2025 Address:[address] [place], [place] [address] Pcp:Nam Uribe Subjective: * Chief Complaints: * 1 . q monthly B12 injection. * Screening: * * Medical History: Objective: * Vitals: Assessment: Plan: * Treatment: * * Electronic signature of Dmitry Zarate on 04/04/2025 at 11:32 AM MACHINE FILLER SERVICER Sign off status: Pending * Provider: Jeanette Zarate APN Date: 1 Generated for Humberto betancourt/Josue/eTransmitting on: 06/05/2024 11:32 AM MACHINE FILLER SERVICER
--- NOTE | 2025-04-04 | ECG_ITS ---
Test Date: 2025-04-04 10:38:56 Measurements Intervals Brilliant Rate: 74 P: 45 WI: 129 QRS: 54 QRSD: 90 T: 59 QT: 383 QTc: 426 Interpretive Statements SINUS RHYTHM BASELINE WANDER- V4-V6 NORMAL ECG No previous ECG available for comparison Electronically Signed On 04-04-2025 11:32:07 ENGINEERING LEADER by Fortino Kirk D.O.
--- OUTSIDE RECORDS SUMMARY | 2025-04-04 09:00 | XMS_ITS ---
Author Organization [facility] Address [address] [place] [address] Phone [phone] Care Team Providers Care Medical Office Administrator Name Role Phone Nam Uribe APRN Primary Care Provider Giovanni Zarate Unavailable Allergies No Known Allergies REASON FOR VISIT q monthly B12 injection Medications Medication SIG (Take, Route, Frequency, Duration) Notes Start Date End Date Diagnosis (ICD Code) Status Fexofenadine HCl 180 MG Tablet 1 tablet Swallow whole with water; do not take with fruit juices. Orally Once a day Adult general medical exam (ICD_10 - Z00.00) Active Gabapentin 300 MG Capsule 1 capsule Orally Once a day Adult general medical exam (ICD_10 - Z00.00) Active Ocuvite Adult 50+ - Capsule as directed Orally Adult general medical exam (ICD_10 - Z00.00) Active traZODone HCl 100 MG Tablet 1 tablet at bedtime as needed Orally Once a day Adult general medical exam (ICD_10 - Z00.00) Active Montelukast Sodium 10 MG Tablet 1 tablet Orally Once a day in the evening Adult general medical exam (ICD_10 - Z00.00) Active Allergy Nasal [place] 205.5 MCG/SPRAY Solution 2 sprays (1 spray in each nostril) Nasally Twice a day Adult general medical exam (ICD_10 - Z00.00) Active Acamprosate Calcium 333 MG Tablet Delayed Release 2 tablets Orally 3 times a day; Duration: 30 days 5 Alcohol use disorder (ICD_10 - F10.99) Active Vitamin D3 250 MCG ([address] UT) Capsule 1 capsule Orally Once a day Adult general medical exam (ICD_10 - Z00.00) Active Budesonide-Formote rol Fumarate 160-4.5 MCG/ACT Aerosol as directed Inhalation Adult general medical exam (ICD_10 - Z00.00) Active Escitalopram Oxalate 20 MG Tablet 1 tablet Orally Once a day Adult general medical exam (ICD_10 - Z00.00) Active Budesonide 3 MG Capsule Delayed Release Particles 3 capsules Orally in the morning; Duration: 30 days Diverticulitis (ICD_10 - K57.92) Active hydrOXYzine Pamoate 25 MG Capsule 1-2 capsules Orally every 4 hours as needed for anxiety, agitation, or inability to sleep. Do not give within 4 hours of diphenhydramine.; Duration: 14 days 5 Depression (ICD_10 - F32.9) Active Vivitrol 380 MG Suspension Reconstituted as directed Intramuscular every 28 days 5 Alcohol use disorder (ICD_10 - F10.99) Not-Betina melendez Cyanocobalamin 1000 MCG/ML Solution 1 mL Injection once a month; Duration: 30 days 5 Vitamin B12 deficiency (ICD_10 - E53.8) Active Black Cohosh Root 540 MG Capsule as directed Orally Adult general medical exam (ICD_10 - Z00.00) Active Levothyroxine Sodium 100 MCG Tablet 1 tablet in the morning on an empty stomach Orally Once a day Adult general medical exam (ICD_10 - Z00.00) Active Triamcinolone Acetonide 0.1 % Cream 1 application Externally Two times a Week Adult general medical exam (ICD_10 - Z00.00) Active Meloxicam 7.5 MG Tablet 1 tablet Orally Once a day Adult general medical exam (ICD_10 - Z00.00) Active 8 Hour Pain Relief Activ e Albuterol Sulfate HFA 108 (90 Base) MCG/ACT Aerosol Solution 2 puffs as needed Inhalation every 4-6 hours Adult general medical exam (ICD_10 - Z00.00) Active Social History Sex Observation Social History Observation Description Sex Observation Female Sexual Orientation Social History Observation Description Sexual Orientation Straight or heterose xual Gender Identity Social History Observation Description Gender Identity Female Vital Signs Vital Sign Value Appt Date Weight 122.8 lbs lbs 04/04/2025 Height 63 in 04/04/2025 BMI 21.75 kg/m2 04/04/2025 Blood pressure systolic 158 mm Hg 04/04/20 25 Blood pressure diastolic 88 mm Hg 025 Heart Rate 89 /min 04/04/2025 Oximetry 98 % 04/04/2025 Respiratory Rate 16 /min 04/04/2025 Encounters Date Time Type Facility Location Provider Diagnosis 09:00 AM Office Visit [facility] [address] [place] [address] Giovanni Zarate B12 deficiency E53.8 Assessments Encounter Date Diagnosis (ICD Code) Assessment Notes Treat ment Notes Section Notes 04/04/2025 B12 deficiency (ICD-10 - E53.8) Delmy Coelho 04/04/2025 08:55 AM SUPERVISOR LOADING >During B12 injection visit client reported that she had a couple of episodes of what she thought may be seizures. Client reported that with changing body positions she had 2 episodes of dizziness, vertigo, & fell to the ground and this happened x2 a few weeks ago. Client did not go to the ER after the episodes. DUNG Zarate notifed & added to DUNG Zarate's schedule for an Urgent visit. Plan Of Treatment Treatment Notes Assessment Notes B12 deficiency Delmy Coelho 08:55 AM SUPERVISOR LOADING >During B12 injection visit client reported that she had a couple of episodes of what she thought may be seizures. Client reported that with changing body positions she had 2 episodes of dizziness, vertigo, & fell to the ground and this happened x2 a few weeks ago. Client did not go to the ER after the episodes. DUNG Zarate notifed & added to DUNG Zarate's schedule for an Urgent visit. Next Appt Details Provider Name:Giovanni ochoa, 05/02/2025 09:00:00 AM, [address], [place], [address], Medications Administered Medication Instructions Date of Administration Dosage Diagnosis (ICD Code) Notes Cyanocobalamin (B-12) 04/04/2025 1000 ug Meliton Delmy Dobson 04/04/2025 09:05 AM SUPERVISOR LOADING >Given IM RMD, tolerated well. [facility]# [id number] . Medical (General) History Medical History History ICD Code Hypothyroidism asthma colitis endometriosis Vitamin b12 deficiency Alcohol use disorder Irritable bowel syndrome Hypertension Surgical History Surgery Date(Month/Year) TOTAL HYSTERECTOMY 04/2000 cholecystectomy cervical fusion maniscus repair right and left c section hernia repair x 2 bunionectomy gastric bypass Hospitalization History Reason Date(Month/Year) Progress Notes * MILYElisa SDOB:1960 (65 yo F)Acc No.[id number]:04/04/2025 Progress Note Patient: Elisa VINSON Provider: Jeanette Zarate APN :1960 A ge:65 Y S ex:Female Date:04/04/2025 Address:[address] [place], [place] [id number] Pcp:Nam Uribe Check In:08:41 AM CSTCheck O ut:09:13 AM SUPERVISOR LOADING Subjective: * Chief Complaints: * q monthly B12 injection * Screening: * * Medical History: * Surgical History: T OTAL HYSTERECTOMY 04/2000cholecystectomy cervical fusion maniscus repair right and left c section hernia repair x 2 bunionectomy gastric bypass * Hospitalization/Major Diagno stic Procedure: * Medications: T akingAcamprosate Calcium 333 MG Tablet Delayed Release 2 tablets Orally 3 times a day Allergy Nasal [place] 205.5 MCG/SPRAY Solution 2 sprays (1 spray in each nostril) Nasally Twice a day Budesonide-Formoterol Fumarate 160-4.5 MCG/ACT Aerosol as directed Inhalation Vitamin D3 250 MCG ([address]11 UT) Capsule 1 capsule Orally Once a day Escitalopram Oxalate 20 MG Tablet 1 tablet Orally Once a day Montelukast Sodium 10 MG Tablet 1 tablet Orally Once a day in the evening traZODone HCl 100 MG Tablet 1 tablet at bedtime as needed Orally Once a day Ocuvite Adult 50+ - Capsule as directed Orally Gabapentin 300 MG Capsule 1 capsule Orally Once a day Fexofenadine HCl 180 MG Tablet 1 tablet Swallow whole with water; do not take with fruit juices. Orally Once a day Levothyroxine Sodium 100 MCG Tablet 1 tablet in the morning on an empty stomach Orally Once a day Meloxicam 7.5 MG Tablet 1 tablet Orally Once a day Triamcinolone Acetonide 0.1 % Cream 1 application Externally Two times a Week Albuterol Sulfate HFA 108 (90 Base) MCG/ACT Aerosol Solution 2 puffs as needed Inhalation every 4-6 hours 8 Hour Pain Relief Black Cohosh Root 540 MG Capsule as directed Orally Cyanocobalamin 1000 MCG/ML Solution 1 mL Injection once a month hydrOXYzine Pamoate 25 MG Capsule 1-2 capsules Orally every 4 hours as needed for anxiety, agitation, or inability to sleep. Do not give within 4 hours of diphenhydramine. Budesonide 3 MG Capsule Delayed Release Particles 3 capsules Orally in the morning Taking Acamprosate Calcium 333 MG Tablet Delayed Release 2 tablets Orally 3 times a day Taking Allergy Nasal [place] 205.5 MCG/SPRAY Solution 2 sprays (1 spray in each nostril) Nasally Twice a day Taking Budesonide-Formoterol Fumarate 160-4.5 MCG/ACT Aerosol as directed Inhalation Taking Vitamin D3 250 MCG ([address] UT) Capsule 1 capsule Orally Once a day Taking Escitalopram Oxalate 20 MG Tablet 1 tablet Orally Once a day Taking Montelukast Sodium 10 MG Tablet 1 tablet Orally Once a day in the evening Taking traZODone HCl 100 MG Tablet 1 tablet at bedtime as needed Orally Once a day Taking Ocuvite Adult 50+ - Capsule as directed Orally Taking Gabapentin 300 MG Capsule 1 capsule Orally Once a day Taking Fexofenadine HCl 180 MG Tablet 1 tablet Swallow whole with water; do not take with fruit juices. Orally Once a day Taking Levothyroxine Sodium 100 MCG Tablet 1 tablet in the morning on an empty stomach Orally Once a day Taking Meloxicam 7.5 MG Tablet 1 tablet Orally Once a day Taking Triamcinolone Acetonide 0.1 % Cream 1 application Externally Two times a Week Taking Albuterol Sulfate HFA 108 (90 Base) MCG/ACT Aerosol Solution 2 puffs as needed Inhalation every 4-6 hours Taking 8 Hour Pain Relief Taking Black Cohosh Root 540 MG Capsule as directed Orally Taking Cyanocobalamin 1000 MCG/ML Solution 1 mL Injection once a month Taking hydrOXYzine Pamoate 25 MG Capsule 1-2 capsules Orally every 4 hours as needed for anxiety, agitation, or inability to sleep. Do not give within 4 hours of diphenhydramine. Taking Budesonide 3 MG Capsule Delayed Release Particles 3 capsules Orally in the morning Not-TakingVivitrol 380 MG Suspension Reconstituted as directed Intramuscular every 28 days Not-Taking Vivitrol 380 MG Suspension Reconstituted as directed Intramuscular every 28 days * Allergies: N .K.D.A.no[Allergies Verified] Objective: * Vitals: I nitials: milagros, Wt:122.8 lbs, Ht: 63, BMI:21.75, BP:158/88, HR:89, Oxygen sat %:98, RR:16. Assessment: * Assessment: 1. B 12 deficiency - E53.8 (Primary) Plan: * Treatment: * Therapeutic Injections: Cyanocobalamin (B-12) : 1000 mcg (Dose No:1) (Route: Intramuscular) given by MILAGROS Hallman on right deltoid (B12 deficiency) * Procedure Codes: 9 6372 THER/PROPH/DIAG INJ, SC/IM * * RVISOR LOADING Sign off status: Completed true * Provider: Jeanette Zarate APN Date: 06/05/2024 Generated for Humberto betancourt/Josue/Benny on: 06/05/2024 11:32 AM SUPERVISOR LOADING
--- OUTSIDE RECORDS SUMMARY | 2025-04-04 11:32 | XMS_ITS | Encounter Summary ---
Author Organization [facility] Address [address] [place] [address] Care Team Providers Care Supervisor Order Takers Name Role Phone Patsy Ta MD Primary Care Provider [phone] Encounter Details Date Type Department Care Team (Late st Contact Info) Description 12/01/1997 Outpatient [facility] Internal Medicine - [facility] [address] [address] [facility] [address] [place] [address] [place] [address] [address] Social History Tobacco Use Types Packs/Day Years Used Date Smoking Tobacco: Never Assessed Comments Unknown Sex and Gender Information Value Date Recorded Sex Assigned at Not on file 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
--- OUTSIDE RECORDS SUMMARY | 2025-04-04 11:32 | XMS_ITS | Encounter Summary ---
Author Organization [facility] Address 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
--- OUTSIDE RECORDS SUMMARY | 2025-04-04 11:32 | XMS_ITS | Encounter Summary ---
Author Organization [facility] Address 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
--- OUTSIDE RECORDS SUMMARY | 2025-04-04 11:32 | XMS_ITS | Encounter Summary ---
Author Organization [facility] Address [address] [place] [address] Care Team Providers Care Asset Protection Agent Name Role Phone Patsy Ta MD Primary Care Provider [phone] Encounter Details Date Type Department Care Team (Latest Contact Info) Description 03/21/1998 Outpatient [facility] Landon Gibbs MD [facility] [address] [place] [address] Inguinal hernia without mention of obstruction or gangrene, unilateral or unspecified, (not specified as recurrent) (Primary Dx) Social History Tobacco Use Types Packs/Day Years Used Date Smoking Tobacco: Never Assessed Comments Unknown Sex and Gender Information Value Date Recorded Sex Assigned at Not on file Legal Sex Female 5:02 AM DIRECTOR SOCIAL WELFARE Gender Identity Not on file Sexual Orientation Not on file documented as of this encounter Plan of Treatment Not on file documented as of this encounter Visit Diagnoses Diagnosis Inguinal hernia without mention of obstruction or gangrene, unilateral or unspecified, (not specified as recurrent)- Primary documented in this encounter Care Teams Asset Protection Agent Relationship Specialty [place] [address] [place] [address] PCP - General 11/06/01 documented as of this encounter
--- OUTSIDE RECORDS SUMMARY | 2025-04-04 11:32 | XMS_ITS | Encounter Summary ---
Author Organization [facility] Address [address] [place] [address] Care Team Providers Care Sales Planning Manager Name Role Phone Patsy Ta MD Primary Care Provider [phone] Encounter Details Date Type Department Care Team (Late st Contact Info) Description 03/02/1998 Outpatient [facility] Internal Medicine - [facility] [address] [address] [facility] [address] [place] [address] [place] [address] [address] Social History Tobacco Use Types Packs/Day Years Used Date Smoking Tobacco: Never Assessed Comments Unknown Sex and Gender Information Value Date Recorded Sex Assigned at Not on file Legal Sex Female 5:02 AM RETAIL ADVISOR Gender Identity Not on file Sexual Orientation Not on file documented as of this encounter Plan of Treatment Not on file documented as of this encounter Visit Diagnoses Not on filedocumented in this encounter Care Teams Sales Planning Manager Relationship Specialty [place] [address] [place] [address] PCP - General 11/06/01 documented as of this encounter
--- OUTSIDE RECORDS SUMMARY | 2025-04-04 11:32 | XMS_ITS | Encounter Summary ---
Author Organization [facility] Address [address] [place] [address] Care Team Providers Care Steam Heating Installer Name Role Phone Patsy Ta MD Primary Care Provider [phone] Encounter Details Date Type Department Care Team (Late st Contact Info) Description 12/07/1997 Outpatient [facility] Internal Medicine - [facility] [address] [address] [facility] [address] [place] [address] [place] [address] [address] Social History Tobacco Use Types Packs/Day Years Used Date Smoking Tobacco: Never Assessed Comments Unknown Sex and Gender Information Value Date Recorded Sex Assigned at Not on file Legal Sex Female 5:02 AM CLINICAL DATA MANAGER Gender Identity Not on file Sexual Orientation Not on file documented as of this encounter Plan of Treatment Not on file documented as of this encounter Visit Diagnoses Not on filedocumented in this encounter Care Teams Steam Heating Installer Relationship Specialty [place] [address] [facility] [address] [place] [address] PCP - General 11/06/01 documented as of this encounter
--- OUTSIDE RECORDS SUMMARY | 2025-04-04 11:32 | XMS_ITS | Clinical Summary ---
Author Organization [facility] Address [address] [place] [address] Phone Care Team Providers Care Echo Technologist Name Role Phone Patsy Ta MD Primary Care Provider [phone] Allergies No known active allergies Medications levothyroxine 100 mcg tablet Take 100 mcg by mouth daily glue spreading machine operator. Active citalopram (CeleXA) 20 mg tablet Take [...] bedtime. Active fluticasone propionate (FLONASE) 50 mcg/spray Jones, Suspension nasal inhaler Administer 2 Sprays in each nostril daily. Active hydroCHLOROthi azide 25 mg tablet Take 25 mg by mouth daily. Active acetaminophen (TYLENOL) 325 mg tablet Take 325 mg by mouth daily. Active Active Problems No known active problems Social History Tobacco Use Types Packs/Day Years Used Date Smoking Tobacco: Never Smokeless Tobacco: Never Alcohol Use Standard Drinks/Week Comments Yes 0 (1 standard drink = 0.6 oz pur e alcohol) 2-3 times a week Feeling Safe Answer Date Recorded Are you in a relationship wi th someone who hurts you emotionally and/or physically? No 10/17/2024 Comments No Sex and Gender Information Value Date Recorded Sex Assigned at Not on file Legal Sex Female 5:02 AM CORPORATE DEVELOPMENT INTERN Gender Identity Not on file Sexual Orientation Not on file Last Filed Vital Signs Vital Sign Reading Time Taken Comments Blood Pressure 146/64 10/17/2024 4:05 PM CDT Pulse 105 10/17/2024 4:05 PM CDT Temperature 37.2 C (99 F) 10/17/2024 12:07 PM CDT Respiratory Rate 18 10/17/2024 12:07 PM CDT Oxygen Saturation 98% 10/17/2024 4:05 PM CDT Inhaled Oxygen Concentration - - Weight 55.8 kg (123 lb) 10/17/2024 12:07 PM CDT Height 162.6 cm (5' 4) 10/17/2024 12:07 PM CDT Body Mass Index 21.11 10/17/2024 12:07 PM CDT Plan of Treatment Health Maintenance Due Date Last Done Comments PNEUMOCOCCAL VACCINE 50+ YEA RS (1 of 2 - PCV) 1978 FIT-DNA Q 3 years 02/17/2004 FIT/FOBT Q 1 year 02/17/2004 Flex Sig/CT Colonography Q 5 years 02/17/2004 RSV VACCINE (60+ or ) (1 - Risk 50-74 years 1-dose series) 2009 ZOSTER VACCINE (1 of 2) 2009 BREAST CANCER SCREENING 05/24/2021 05/24/19, 05/14/2018, 07/04/2016 DTAP/TDAP/TD VACCINES (2 - T d or Tdap) 08/17/2023 08/16/2013 OSTEOPOROSIS SCREENING 02/17/2024 05/14/2018 INFLUENZA VACCINE (#1) 2024 , 02/19/2020, 02/13/2020, Additional history exists COVID-19 Vaccine (2 - 2024-2 6 season) 2024 06/25/2020 COLORECTAL SCREENING 06/30/2029 07/01/2019 Colorectal Cancer Screening 06/30/2029 Medical Devices Implanted Type Area Ham Trimmer Device Identifier Shelf Expiration Date Model / Serial / Lot Screw 2.2-S Diam2.2 Lg11mm Implanted:Qty: 1 on 03/01/2019 by Delroy Veliz DPM at [facility] Right: Toe 02/17/2023 S22 [id number] / / [id number] Description:item add c.s Procedures Procedure Name Priority Date/Time Associated Diagnosis Comments MAMMO SCREEN BILAT W OR WO CAD Routine 05/24/2020 3:17 PM CORPORATE DEVELOPMENT INTERN Breast cancer screening by mammogram XR DEXA BONE DENSITY AXIAL 1 OR MORE SITES Routine 05/14/2018 9:03 AM CORPORATE DEVELOPMENT INTERN Screening for osteoporosis from Last 3 Months or Most Recently Relevant to Health Maintenance Results * MAMMO SCREEN BILAT W OR WO CAD (05/24/2020 3:17 PM CORPORATE DEVELOPMENT INTERN) Anatomical Region Laterality Modality Breast Bilateral Mammography 05/24/2020 3:17 PM CORPORATE DEVELOPMENT INTERN Impressions 05/24/2020 3:53 PM CORPORATE DEVELOPMENT INTERN IMPRESSION: No mammographic evidence of malignancy. RECOMMENDATIONS: Routine screening mammogram in one year. DICTATION LOCATION: [facility] Narrative 05/24/2020 3:53 PM CORPORATE DEVELOPMENT INTERN MAMMO SCREEN BILAT W OR WO CAD [...] FINAL ASSESSMENT: BI-RADS CATEGORY 1 : Negative Procedure Note Brayan [...] screening mammogram in one year. DICTATION LOCATION: [facility] us Patsy Ta MD MAMMO ORDERABLES Final Resul t * XR DEXA BONE DENSITY AXIAL 1 OR MORE SITES (05/14/2018 9:03 AM CORPORATE DEVELOPMENT INTERN) Anatomical Region Laterality Modality Computed Radiogr aphy 05/14/2018 9:12 AM CORPORATE DEVELOPMENT INTERN Narrative 05/14/2018 1:36 PM CORPORATE DEVELOPMENT INTERN SUMMARY DEXA REPORT DATE: 05/14/2018 9:03 AM INDICATION: Post menopausal. History of thyroid medication and family history of osteoporosis. FINDINGS: The lowest bone mineral density is in the lumbar spine measuring 1.005 g/sq cm with a young adult T score of -1.4. This represents osteopenia. Please refer to the full report available in [facility] under the PACS Images tab. If a faxed copy is needed, please call [phone]. DICTATION LOCATION: [address] Procedure Note Sinan Burgess MD - 05/14/2018 SUMMARY DEXA REPORT DATE: 05/14/2018 9:03 AM INDICATION: Post menopausal. History of thyroid medication and family history of osteoporosis. FINDINGS: The lowest bone mineral density is in the lumbar spine measuring 1.005 g/sq cm with a young adult T score of -1.4. This represents osteopenia. Please refer to the full report available in [facility] under the PACS Images tab. If a faxed copy is needed, please call [phone]. DICTATION LOCATION: [address] [place] Patsy aT MD DIAGNOSTIC IMAGING ORDERABLE S Final Result from Last 3 Months or Most Recently Relevant to Health Maintenance Insurance [facility] RX [facility] [employer] Advance Directives For more information, please contact: [phone] * Full Code (Latest Code Status on File) Date Activated Date Inactivated Comments 03/01/2019 9:30 AM 03/01/2019 3:07 PM Care Teams Echo Technologist Relationship Specialty [place] [address] [facility] [address] [place] [address] PCP - General 11/06/01
--- OUTSIDE RECORDS SUMMARY | 2025-04-04 11:32 | XMS_ITS | Encounter Summary ---
Author Organization [facility] Address [address] [place] [address] Care Team Providers Care Venereal Disease Investigator Name Role Phone Patsy Ta MD Primary Care Provider [phone] Encounter Details Date Type Department Care Team (Late st Contact Info) Description 07/16/1998 Outpatient [facility] Internal Medicine - [facility] [address] [address] [facility] [address] [place] [address] [place] [address] [address] Social History Tobacco Use Types Packs/Day Years Used Date Smoking Tobacco: Never Assessed Comments Unknown Sex and Gender Information Value Date Recorded Sex Assigned at Not on file Legal Sex Female 5:02 AM HYDROLOGICAL TECHNICAL OFFICER Gender Identity Not on file Sexual Orientation Not on file documented as of this encounter Plan of Treatment Not on file documented as of this encounter Visit Diagnoses Not on filedocumented in this encounter Care Teams Venereal Disease Investigator Relationship Specialty [place] [address] [facility] [address] [place] [address] PCP - General 11/06/01 documented as of this encounter
--- OUTSIDE RECORDS SUMMARY | 2025-04-04 11:32 | XMS_ITS | Encounter Summary ---
Author Organization [facility] Address [address] [place] [address] Care Team Providers Care Sweater Designer Name Role Phone Patsy Ta MD Primary Care Provider [phone] Encounter Details Date Type Department Care Team (Late st Contact Info) Description 08/29/1999 Outpatient [facility] Internal Medicine - [facility] [address] [address] [facility] [address] [place] [address] [place] [address] [address] Social History Tobacco Use Types Packs/Day Years Used Date Smoking Tobacco: Never Assessed Comments Unknown Sex and Gender Information Value Date Recorded Sex Assigned at Not on file Legal Sex Female 5:02 AM STRING WINDING MACHINE OPERATOR Gender Identity Not on file Sexual Orientation Not on file documented as of this encounter Plan of Treatment Not on file documented as of this encounter Visit Diagnoses Not on filedocumented in this encounter Care Teams Sweater Designer Relationship Specialty [place] [address] [facility] [address] [place] [address] PCP - General 11/06/01 documented as of this encounter
--- OUTSIDE RECORDS SUMMARY | 2025-04-04 11:32 | XMS_ITS | Encounter Summary ---
Author Organization [facility] Address [address] [place] [address] Care Team Providers Care Muck Miner Name Role Phone Patsy Ta MD Primary Care Provider [phone] Encounter Details Date Type Department Care Team (Latest Contact Info) Description 04/05/2007 Outpatient Historical [facility] [address] [facility] [address] [place] [address] Other Screening Mammogram Social History Tobacco Use Types Packs/Day Years Used Date Smoking Tobacco: Never Assessed Comments Unknown Sex and Gender Information Value Date Recorded Sex Assigned at Not on file Legal Sex Female 5:02 AM PIN FEATHER MACHINE OPERATOR Gender Identity Not on file Sexual Orientation Not on file documented as of this encounter Plan of Treatment Not on file documented as of this encounter Visit Diagnoses Diagnosis Other screening mammogram documented in this encounter Care Teams Muck Miner Relationship Specialty [place] [address] [facility] [address] [place] [address] PCP - General 11/06/01 documented as of this encounter
--- OUTSIDE RECORDS SUMMARY | 2025-04-04 11:32 | XMS_ITS | Encounter Summary ---
Author Organization [facility] Address [address] [place] [address] Care Team Providers Care 6Th Grade Teacher Name Role Phone Patsy Ta MD Primary Care Provider [phone] Encounter Details Date Type Department Care Team (Latest Contact Info) Description 12/04/2005 Outpatient Historical HIS [facility] [place] [address] [address] Other Screening Mammogram (Primary Dx) Social History Tobacco Use Types Packs/Day Years Used Date Smoking Tobacco: Never Assessed Comments Unknown Sex and Gender Information Value Date Recorded Sex Assigned at Not on file Legal Sex Female 5:02 AM PHOTOGRAPHER STILL Gender Identity Not on file Sexual Orientation Not on file documented as of this encounter Plan of Treatment Not on file documented as of this encounter Visit Diagnoses Diagnosis Other screening mammogram- Primary documented in this encounter Care Teams 6Th Grade Teacher Relationship Specialty [place] [address] [facility] [address] [place] [address] PCP - General 11/06/01 documented as of this encounter
--- OUTSIDE RECORDS SUMMARY | 2025-04-04 11:32 | XMS_ITS | Encounter Summary ---
Author Organization [facility] Address [address] [place] [address] Care Team Providers Care Glass Worker Name Role Phone Patsy Ta MD Primary Care Provider [phone] Encounter Details Date Type Department Care Team (Late st Contact Info) Description 10/11/1999 Outpatient [facility] Internal Medicine - [facility] [address] [address] [facility] [address] [place] [address] [place] [address] [address] Social History Tobacco Use Types Packs/Day Years Used Date Smoking Tobacco: Never Assessed Comments Unknown Sex and Gender Information Value Date Recorded Sex Assigned at Not on file Legal Sex Female 5:02 AM ATHLETIC SCOUT Gender Identity Not on file Sexual Orientation Not on file documented as of this encounter Plan of Treatment Not on file documented as of this encounter Visit Diagnoses Not on filedocumented in this encounter Care Teams Glass Worker Relationship Specialty [place] [address] [facility] [address] [place] [address] PCP - General 11/06/01 documented as of this encounter
--- OUTSIDE RECORDS SUMMARY | 2025-04-04 11:32 | XMS_ITS | Encounter Summary ---
Author Organization [facility] Address [address] [place] [address] Care Team Providers Care Subassembler Name Role Phone Patsy Ta MD Primary Care Provider [phone] Encounter Details Date Type Department Care Team (Latest Contact Info) Description 02/10/2004 Outpatient Historical [facility] [place] [address] [address] SCREENING MAMM-MAILG NEOPL-OTHER (Primary Dx) Social History Tobacco Use Types Packs/Day Years Used Date Smoking Tobacco: Never Assessed Comments Unknown Sex and Gender Information Value Date Recorded Sex Assigned at Not on file Legal Sex Female 5:02 AM SLAB LIFTING SUPERVISOR Gender Identity Not on file Sexual Orientation Not on file documented as of this encounter Plan of Treatment Not on file documented as of this encounter Visit Diagnoses Diagnosis Other screening mammogram- Primary documented in this encounter Care Teams Subassembler Relationship Specialty [place] [address] [facility] [address] [place] [address] PCP - General 11/06/01 documented as of this encounter
--- OUTSIDE RECORDS SUMMARY | 2025-04-04 11:32 | XMS_ITS | Encounter Summary ---
Author Organization [facility] Address [address] [place] [address] Care Team Providers Care Tempering Oven Operator Name Role Phone Patsy Ta MD Primary Care Provider [phone] Encounter Details Date Type Department Care Team (Late st Contact Info) Description 09/04/1998 Outpatient [facility] Internal Medicine - [facility] [address] [address] [facility] [address] [place] [address] [place] [address] [address] Social History Tobacco Use Types Packs/Day Years Used Date Smoking Tobacco: Never Assessed Comments Unknown Sex and Gender Information Value Date Recorded Sex Assigned at Not on file Legal Sex Female 5:02 AM WHEELCHAIR DRIVER Gender Identity Not on file Sexual Orientation Not on file documented as of this encounter Plan of Treatment Not on file documented as of this encounter Visit Diagnoses Not on filedocumented in this encounter Care Teams Tempering Oven Operator Relationship Specialty [place] [address] [facility] [address] [place] [address] PCP - General 11/06/01 documented as of this encounter
--- OUTSIDE RECORDS SUMMARY | 2025-04-04 11:32 | XMS_ITS | Encounter Summary ---
Author Organization [facility] Address [address] [place] [address] Care Team Providers Care Public Works Laborer Name Role Phone Patsy Ta MD Primary Care Provider [phone] Encounter Details Date Type Department Care Team (Late st Contact Info) Description 01/18/1998 Outpatient [facility] Internal Medicine - [facility] [address] [address] [facility] [address] [place] [address] [place] [address] [address] Social History Tobacco Use Types Packs/Day Years Used Date Smoking Tobacco: Never Assessed Comments Unknown Sex and Gender Information Value Date Recorded Sex Assigned at Not on file Legal Sex Female 5:02 AM INTERNAL GRINDING MACHINE OPERATOR Gender Identity Not on file Sexual Orientation Not on file documented as of this encounter Plan of Treatment Not on file documented as of this encounter Visit Diagnoses Not on filedocumented in this encounter Care Teams Public Works Laborer Relationship Specialty [place] [address] [facility] [address] [place] [address] PCP - General 11/06/01 documented as of this encounter
--- OUTSIDE RECORDS SUMMARY | 2025-04-04 11:32 | XMS_ITS | Encounter Summary ---
Author Organization [facility] Address [address] [place] [address] Care Team Providers Care Commercial Designer Name Role Phone Patsy Ta MD Primary Care Provider [phone] Encounter Details Date Type Department Care Team (Late st Contact Info) Description 07/27/1998 Outpatient [facility] Internal Medicine - [facility] [address] [address] [facility] [address] [place] [address] [place] [address] [address] Social History Tobacco Use Types Packs/Day Years Used Date Smoking Tobacco: Never Assessed Comments Unknown Sex and Gender Information Value Date Recorded Sex Assigned at Not on file Legal Sex Female 5:02 AM MAXILLOFACIAL PROSTHODONTIST Gender Identity Not on file Sexual Orientation Not on file documented as of this encounter Plan of Treatment Not on file documented as of this encounter Visit Diagnoses Not on filedocumented in this encounter Care Teams Commercial Designer Relationship Specialty [place] [address] [facility] [address] [place] [address] PCP - General 11/06/01 documented as of this encounter
--- OUTSIDE RECORDS SUMMARY | 2025-04-04 11:32 | XMS_ITS | Encounter Summary ---
Author Organization [facility] Address [address] [place] [address] Care Team Providers Care Foot Tender Name Role Phone Patsy Ta MD Primary Care Provider [phone] Encounter Details Date Type Department Care Team (Late st Contact Info) Description 03/08/1998 Outpatient [facility] Internal Medicine - [facility] [address] [address] [facility] [address] [place] [address] [place] [address] [address] Social History Tobacco Use Types Packs/Day Years Used Date Smoking Tobacco: Never Assessed Comments Unknown Sex and Gender Information Value Date Recorded Sex Assigned at Not on file Legal Sex Female 5:02 AM FUELS ENGINEER Gender Identity Not on file Sexual Orientation Not on file documented as of this encounter Plan of Treatment Not on file documented as of this encounter Visit Diagnoses Not on filedocumented in this encounter Care Teams Foot Tender Relationship Specialty [place] [address] [facility] [address] [place] [address] PCP - General 11/06/01 documented as of this encounter
--- OUTSIDE RECORDS SUMMARY | 2025-04-04 11:32 | XMS_ITS | Encounter Summary ---
Author Organization [facility] Address [address] [place] [address] Care Team Providers Care Industrial Engineering Technician Name Role Phone Patsy Ta MD Primary Care Provider [phone] Encounter Details Date Type Department Care Team (Late st Contact Info) Description 12/06/1997 Outpatient [facility] Internal Medicine - [facility] [address] [address] [facility] [address] [place] [address] [place] [address] [address] Social History Tobacco Use Types Packs/Day Years Used Date Smoking Tobacco: Never Assessed Comments Unknown Sex and Gender Information Value Date Recorded Sex Assigned at Not on file Legal Sex Female 5:02 AM BODY BUILDER Gender Identity Not on file Sexual Orientation Not on file documented as of this encounter Plan of Treatment Not on file documented as of this encounter Visit Diagnoses Not on filedocumented in this encounter Care Teams Industrial Engineering Technician Relationship Specialty [place] [address] [facility] [address] [place] [address] PCP - General 11/06/01 documented as of this encounter
--- OUTSIDE RECORDS SUMMARY | 2025-04-04 11:32 | XMS_ITS | Encounter Summary ---
Author Organization [employer] Address [address] [place] [address] Care Team Providers Care Enterprise Systems Manager Name Role Phone Patsy Ta MD Primary Care Provider [phone] Encounter Details Date Type Department Care Team (Late st Contact Info) Description 08/29/1998 Emergency [facility] Guillermo Galvez [address] [facility] [address] [place] [address] Er, Authorized P NO ADDRESS ON FILE Abdominal pain, other specified site (Primary Dx) Social History Tobacco Use Types Packs/Day Years Used Date Smoking Tobacco: Never Assessed Comments Unknown Sex and Gender Information Value Date Recorded Sex Assigned at Not on file Legal Sex Female 5:02 AM FRAME POLISHER Gender Identity Not on file Sexual Orientation Not on file documented as of this encounter Plan of Treatment Not on file documented as of this encounter Visit Diagnoses Diagnosis Abdominal pain, other specified site- Primary documented in this encounter Care Teams Enterprise Systems Manager Relationship Specialty [place] [id number] [facility] [address] [place] [id number] PCP - General 11/06/01 documented as of this encounter
--- OUTSIDE RECORDS SUMMARY | 2025-04-04 11:32 | XMS_ITS | Encounter Summary ---
Author Organization [facility] Address [address] [place] [address] Care Team Providers Care Glass Loading Equipment Tender Name Role Phone Patsy Ta MD Primary Care Provider [phone] Encounter Details Date Type Department Care Team (Latest Contact Info) Description 11/06/2001 Outpatient Historical [facility] [place] [address] [address] SCREENING MAMM-MAILG NEOPL-OTHER (Primary Dx) Social History Tobacco Use Types Packs/Day Years Used Date Smoking Tobacco: Never Assessed Comments Unknown Sex and Gender Information Value Date Recorded Sex Assigned at Not on file Legal Sex Female 5:02 AM ULTRASOUND TECHNOLOGIST Gender Identity Not on file Sexual Orientation Not on file documented as of this encounter Plan of Treatment Not on file documented as of this encounter Visit Diagnoses Diagnosis Other screening mammogram- Primary documented in this encounter Care Teams Glass Loading Equipment Tender Relationship Specialty [place] [address] [facility] [address] [place] [address] PCP - General 11/06/01 documented as of this encounter
--- OUTSIDE RECORDS SUMMARY | 2025-04-04 11:32 | XMS_ITS | Encounter Summary ---
Author Organization [facility] Address 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
--- OUTSIDE RECORDS SUMMARY | 2025-04-04 11:33 | XMS_ITS | Patient Health Record ---
Author Organization [facility] Address [address] [place] [address] Phone [phone] Care Team Providers Care Freight Router Name Role Phone Sivakumarjayneaundrea EDWIGE Nam Primary Care Provider [phone] Mary Izquierdo APRN Unavailable Liu Chandler Unavailable [phone] Giovanni Zarate Unavailable Allergies No Known Allergies Results Component Value Reference Range Flag Notes HIV Screen *HIV 1, 2 Ab, p24 Ag ([id number]) Order date: 10/26/2024 Reviewed date:12/28/2024 08:24:42 AM Interpretation: Performing Lab:[facility], [address] [facility], Phone - [phone], Director - Arian Notes/Report: HIV Ab/p24 Ag Screen Non Reactive Non Reactive HIV-1/HIV-2 antibodies and HIV-1 p24 antigen were NOT detected. There is no laboratory evidence of HIV infection. HIV Negative CBC With Differential/Platel et* Order date: 10/26/2024 Reviewed date:12/28/2024 08:24:42 AM Interpretation: Performing Lab:[facility], [address] [facility], Phone - [phone], Director - [facility] Notes/Report: WBC 2.9 3.4-10.8 x10E3/uL L RBC 3.50 3.77-5.28 x10E6/uL L Hemoglobin 11.8 11.1-15.9 g/dL Hematocrit 37.2 34.0-46.6 % MCV 106 79-97 fL H MCH 33.7 26.6-33.0 pg H MCHC 31.7 31.5-35.7 g/dL RDW 11.9 11.7-15.4 % Platelets 194 150-450 x10E3/uL Neutrophils 47 Not Estab. % Lymphs 41 Not Estab. % Monocytes 11 Not Estab. % Eos 1 Not Estab. % Basos 0 Not Estab. % Neutrophils (Absolute) 1.3 1.4-7.0 x10E3/uL L Lymphs (Absolute) 1.2 0.7-3.1 x10E3/uL Monocytes(Absolute) 0.3 0.1-0.9 x10E3/uL Eos (Absolute) 0.0 0.0-0.4 x10E3/uL Baso (Absolute) 0.0 0.0-0.2 x10E3/uL Immature Granulocytes 0 Not Estab. % Immature Grans (Abs) 0.0 0.0-0.1 x10E3/uL CMP 14 Comprehensive Metabol ic Panel* Order date: 10/26/2024 Reviewed date:12/28/2024 08:24:42 AM Interpretation: Performing Lab:[facility], [address] [facility], Phone - [phone], Director - [facility] Notes/Report: Glucose 87 70-99 mg/dL BUN 9 8-27 mg/dL Creatinine 0.79 0.57-1.00 mg/dL eGFR 83 >59 mL/min/1.73 BUN/Creatinine Ratio 11 12-28 L Sodium 143 134-144 mmol/L Potassium 4.2 3.5-5.2 mmol/L Chloride 104 96-106 mmol/L Carbon Dioxide, Total 24 20-29 mmol/L Calcium 8.9 8.7-10.3 mg/dL Protein, Total 5.8 6.0-8.5 g/dL L Albumin 3.9 3.9-4.9 g/dL Globulin, Total 1.9 1.5-4.5 g/dL Bilirubin, Total 0.3 0.0-1.2 mg/dL Alkaline Phosphatase 79 44-121 IU/L AST (SGOT) 28 0-40 IU/L ALT (SGPT) 19 0-32 IU/L QuantiFERON-TB Gold Plus ([id number]) Order date: 10/26/2024 Reviewed date:12/28/2024 08:24:42 AM Interpretation: Performing Lab:[facility] [address] [facility], Phone - [phone], Director - [facility] Notes/Report: QuantiFERON Incubation Incubation performed. QuantiFERON-TB Gold Plus Negative Negative No response to M tuberculosis antigens detected. Infection with M tuberculosis is unlikely, but high risk individuals should be considered for additional testing (ATS/IDSA/CDC Clinical Practice Guidelines, 2017). The reference range is an Antigen minus Nil result of <0.35 IU/mL. Chemiluminescence immunoassay methodology QuantiFERON Criteria QuantiFERON-TB Gold Plus is a qualitative indirect test for M tuberculosis infection (including disease) and is intended for use in conjunction with risk assessment, radiography, and other medical and diagnostic evaluations. The QuantiFERON-TB Gold Plus result is determined by subtracting the Nil value from either TB antigen (Ag) value. The Mitogen tube serves as a control for the test. QuantiFERON TB1 Ag Value 0.05 QuantiFERON TB2 Ag Value 0.06 QuantiFERON Nil Value 0.05 QuantiFERON Mitogen Value 0.71 14 Panel Urine Drug Screen Order date: 10/26/2024 Reviewed date:10/26/2024 10:23:38 AM Interpretation: Performing Lab: Notes/Report: THC neg LILLIANA neg MOP (OPI) neg AMP neg MET neg BAR neg BZO neg MDMA neg MTD neg OXY neg PCP neg BUP neg TCA neg FTY neg Breathalyzer Order date: 10/26/2024 Reviewed date:10/26/2024 10:14:25 AM Interpretation: Performing Lab: Notes/Report: ANA CRISTINA 0.000 TSH+Free T4 Order date: 12/15/2024 Reviewed date:12/28/2024 08:24:41 AM Interpretation: Performing Lab:[facility], [address] [facility], [place], Phone - [phone], Director - [facility] Notes/Report: TSH-ICMA 1.9 Reference Range: Non- Adult 0.450-4.500 First Trimester 0.100-4.000 Second Trimester 0.200-4.000 Third Trimester 0.300-4.500 Free T4 by Dialysis/Car Mover 1.3 This test was developed and its performance characteristics determined by [facility]. It has not been cleared or approved by the Food and Drug Administration. Reference Range: Pubertal Children and Adults: 0.8 - 1.7 Vitamin B12 and Folate Order date: 12/15/2024 Reviewed date:12/28/2024 08:24:42 AM Interpretation: Performing Lab:[facility], [address] [facility], [place], Phone - [phone], Director - [facility] Notes/Report: Vitamin B12 027 100-5026 pg/mL L Folate (Folic Acid), Serum 8.3 >3.0 ng/mL A serum folate concentration of less than 3.1 ng/mL is considered to represent clinical deficiency. Lipid Panel With LDL/HDL Rat io Order date: 12/15/2024 Reviewed date:12/28/2024 08:24:42 AM Interpretation: Performing Lab:[facility], [address] [facility], [place], Phone - [phone], Director - [facility] Notes/Report: Cholesterol, Total 206 100-199 mg/dL H Triglycerides 56 0-149 mg/dL HDL Cholesterol 107 >39 mg/dL VLDL Cholesterol Jose 10 5-40 mg/dL LDL Chol Calc (NIH) 89 0-99 mg/dL LDL/HDL Ratio 0.8 0.0-3.2 ratio LDL/HDL Ratio Men Women 1/2 Avg.Risk 1.0 1.5 Avg.Risk 3.6 3.2 2X Avg.Risk 6.2 5.0 3X Avg.Risk 8.0 6.1 14 Panel Urine Drug Screen Order date: 02/07/2025 Reviewed date:02/07/2025 09:14:19 AM Interpretation: Performing Lab: Notes/Report: THC neg LILLIANA neg MOP (OPI) neg AMP neg MET neg BAR neg BZO neg MDMA neg MTD neg OXY neg PCP neg BUP neg TCA neg FTY neg 14 Panel Urine Drug Screen Order date: 12/28/2024 Reviewed date:12/28/2024 08:54:05 AM Interpretation: Performing Lab: Notes/Report: THC neg LILLIANA neg MOP (OPI) neg AMP neg MET neg BAR neg BZO neg MDMA neg MTD neg OXY neg PCP neg BUP neg TCA neg FTY neg 14 Panel Urine Drug Screen Order date: 01/17/2025 Reviewed date:01/17/2025 03:20:39 PM Interpretation: Performing Lab: Notes/Report: THC neg LILLIANA neg MOP (OPI) neg AMP neg MET neg BAR neg BZO neg MDMA neg MTD neg OXY neg PCP neg BUP neg TCA neg FTY neg 14 Panel Urine Drug Screen Order date: 11/30/2024 Reviewed date:12/01/2024 05:04:04 PM Interpretation: Performing Lab: Notes/Report: THC neg LILLIANA neg MOP (OPI) neg AMP neg MET neg BAR neg BZO neg MDMA neg MTD neg OXY neg PCP neg BUP neg TCA neg FTY neg Reason For Referral Referral Date 12/15/2024 Referral Status Open Reason Patient has history of diverticulitis, colitis, previous colonoscopy, and gastric bypass. Moved into the area, needing new GI provider for colonoscopy Diagnosis 1 History of Rozina-en-Y gastric 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) Diagnosis 2 Encounter for screen ing colonoscopy (Z12.11) Diagnosis 3 Diverticulitis (K57. 92) Diagnosis 4 Colitis (K52.9) Referral Organization [facility] Referring Provider First Name Giovanni Referring Provider Last Name Tessa Referring Provider [facility] eros Referred Provider Specialty Gastroentero logy General Notes Aure Lopez RN 03:13:22 PM >confirmed taking insurance referral faxed letter mailed, Delmy Coelho 01/06/2025 10:20:17 AM >Left a message for client to return call to [facility] about outstanding referral as needing to know if an appointment has been scheduled.Jessica RN, Donna K 01/06/2025 11:23:46 AM >call from client who reports referral needs faxed again fax sentJessica RN, Donna K 01/27/2025 10:59:31 AM >outbound call to client obtained voice mail message left to return call text message sent letter Jessica pastor RN, Donna K 01/30/2025 10:27:08 AM >client called and reports she has not heard from anyone office called informed an [facility] referral was required [facility] called and they reported our provider is not listed as her PCP call to client for problem solving obtained voice mail message left to return call, Aure Lopez RN 02/23/2025 09:37:44 AM >client here for visit notified that Santos is not listed with insurance as her PCP and that needs updated at insurance [employer] for orders be approved client to call today to make change, Aure Lopez RN 03/06/2025 10:09:57 AM >call to client obtained voice message mailbox is full David does not participate in [employer] and will not be able to make referrals Clinical Notes [facility] , [address] [place] [address] [address], [facility], , fax [phone] Referral Priority Routine Referral Date 12/15/2024 Referral Status Open Reason Patient has a histor y of DOTTY, had Gastric bypass in 2017, lost over 100 pounds, has not used a cpap in a long time, would like a referral to be evaluated. Diagnosis 1 History of obstructi ve sleep apnea (Z86.69) Referral Organization [facility] Referring Provider First Name Giovanni Referring Provider Last Name Tessa [facility]erred Provider Specialty Sleep Medici ne General Notes Aure Lopez RN 05/2024 01:40:16 PM >confirmed taking clients insurance outbound call to obtain [place] score obtained voice mail message left to return call, Aure Lopez RN 12/22/2024 12:21:09 PM >[place] scoring faxed to Meliton coronado Melanie D 01/06/2025 10:20:17 AM >Left a message for client to return call to [facility] about outstanding referral as needing to know if an appointment has been scheduled., Aure Lopez RN 01/06/2025 11:17:33 AM >call from client who reports referral needs refaxed completed, Aure Lopez RN 01/30/2025 10:21:11 AM >confirmed referral faxed originally to Sleep Medicine MD call placed to determine why client has not heard from anyone obtained voice mail message left to return call, Aure Lopez RN 01/30/2025 10:27:08 AM >client called and reports she has not heard from anyone office called informed an [facility] referral was required [facility] called and they reported our provider is not listed as her PCP call to client for problem solving obtained voice mail message left to return call, Aure Lopez RN 01/30/2025 11:39:55 AM >referral for sleep medicine refaxed after confirming original fax number was correct, Aure Lopez RN 02/23/2025 09:37:44 AM >client here for visit notified that Santos is not listed with insurance as her PCP and that needs updated at [employer] for orders be approved client to call today to make change, Aure Lopez RN 02/27/2025 10:23:35 AM >Call to [facility] who reports client was unable to change PCP in system because Jeanette Zarate is not in the system [facility] informed, Aure Lopez RN 03/06/2025 10:07:57 AM >outbound call to client to inform of inability to send referrals due to [place] not participating in [facility] obtained voice message that mailbox is full, Aure Lopez RN 03/09/2025 10:33:30 AM >outbound call to client obtained voice mail message left to return call Clinical Notes [facility] , [address] [place] [address], phone [phone], fax [phone] Referral Priority Routine Addressed Referral details can be found under 'Consultation Request Notes' section Medications Medication SIG (Take, Route, Frequency, Duration) Notes Start Date End Date Diagnosis (ICD Code) Status Ocuvite Adult 50+ - Capsule as directed Orally Adult general medical exam (ICD_10 - Z00.00) Active Budesonide 3 MG Capsule Delayed Release Particles 3 capsules Orally in the morning; Duration: 30 days Diverticulitis (ICD_10 - K57.92) Active Gabapentin 300 MG Capsule 1 capsule Orally Once a day Adult general medical exam (ICD_10 - Z00.00) Active Vivitrol 380 MG Suspension Reconstituted as directed Intramuscular every 28 days Alcohol use disorder (ICD_10 - F10.99) Not-Betina melendez Montelukast Sodium 10 MG Tablet 1 tablet Orally Once a day in the evening Adult general medical exam (ICD_10 - Z00.00) Active Cyanocobalamin 1000 MCG/ML Solution 1 mL Injection once a month; Duration: 30 days 5 Vitamin B12 deficiency (ICD_10 - E53.8) Active traZODone HCl 100 MG Tablet 1 tablet at bedtime as needed Orally Once a day Adult general medical exam (ICD_10 - Z00.00) Active hydrOXYzine Pamoate 25 MG Capsule 1-2 capsules Orally every 4 hours as needed for anxiety, agitation, or inability to sleep. Do not give within 4 hours of diphenhydramine.; Duration: 14 days 5 Depression (ICD_10 - F32.9) Active Lisinopril 10 MG Tablet 1 tablet Orally Once a day; Duration: 30 day(s) 5 Hypertension (ICD_10 - I10) Active Vitamin D3 250 MCG (51274 UT) Capsule 1 capsule Orally Once a day Adult general medical exam (ICD_10 - Z00.00) Active 8 Hour Pain Relief Activ e Escitalopram Oxalate 20 MG Tablet 1 tablet Orally Once a day Adult general medical exam (ICD_10 - Z00.00) Active Black Cohosh Root 540 MG Capsule as directed Orally Adult general medical exam (ICD_10 - Z00.00) Active Allergy Nasal [place] 205.5 MCG/SPRAY Solution 2 sprays (1 spray [...] Alcohol use disorder (ICD_10 - F10.99) Active Meloxicam 7.5 MG Tablet 1 tablet Orally Once a day Adult general medical exam (ICD_10 - Z00.00) Active Atorvastatin Calcium 40 MG Tablet 1 tablet Orally Once a day; Duration: 30 day(s) 5 Hypertension (ICD_10 - I10) Active Social History Tobacco Use: Social History Observation Description Date Details (start date - stop date) Never Smoker NA - NA Sex Observation Social History Observation Description Sex Observation Female Sexual Orientation Social History Observation Description Sexual Orientation Straight or heterose xual Gender Identity Social History Observation Description Gender Identity Female SDOH Assessments Date Tool Assessment Assessment LOINC Value Assessment Notes Goals Interventions General Notes 2024 YVETTE TORRES (NISHA C: 06504 -5) Total Score : 3 Please specify Case Management Assessment First Visit 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 46966-0 I have housing ([id number]) Are you worried about losing your housing? 40617-7 Yes (LA33-6) What is the highest level of school that you have finished? 11432-9 More than high school (OH81202-5) What is your current work situation? 11171-4 Otherwise unemployed but not seeking work (ex. 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 Check all that apply 62498-1 I do not have problems meeting my needs Has lack of transportation k ept you from medical appointments, meetings, work or from getting things needed for daily living? 10509-4 No (LA32-8) How often do you see or talk to people that you care about and feel close to? (For example: talking to friends on the phone, visiting friends or family, going to alevism or club meetings) 29510-5 More than 5 times a week (KG42621-9) How stressed are you? Stress is when someone feels tense, nervous, anxious, or can\t sleep at night because their mind is troubled 82226-1 Not at all (WR5063-3) In the past year have you sp ent more than 2 nights in a row in a chcf, halfway, long term center, or juvenile correctional facility? 76091-6 No (LA32-8) Do you feel physically and e motionally safe where you currently live? 80258-7 Yes (LA33-6) In the past year, have you b een afraid of your partner or ex-partner? 50423-6 No (LA32-8) Are you a refugee? I choose not to answer this question What country are you from? I choose not to answer this question PRAPARE Score: 3 Enabling Services Provided? Yes Social History Social Determinants Social Info Question Answer Notes PRAPARE Date Completed/Updated: 10/26/2024 What is your current housing situation? I have h ousing Are you worried about losing your housing? Yes What is the highest level of school that you have finished? More than high school What is your current work situation? Oth erwise unemployed but not seeking work (ex. 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 Check all that apply I do not have problems meeting my needs Has lack of transportation k ept you from medical appointments, meetings, work or from getting things needed for daily living? No How often do you see or talk to people that you care about and feel close to? (For example: talking to friends on the phone, visiting friends or family, going to alevism or club meetings) More than 5 times a week How stressed are you? Stress is when someone feels tense, nervous, anxious, or can\t sleep at night because their mind is troubled Not at all In the past year have you sp ent more than 2 nights in a row in a chcf, halfway, long term center, or juvenile correctional facility? No Are you a refugee? I choose not to answer this q uestion What country are you from? I choose not to answe r this question Do you feel physically and e motionally safe where you currently live? Yes In the past year, have you b een afraid of your partner or ex-partner? No PRAPARE Score: 3 Enabling Services Provided? 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 Alcohol use: Sober, actively trying to stay sober, attends AA meetings Problems Problem Type SNOMED Code ICD Code Dates Problem Status W/U Status Risk Notes Problem Hypertension (45010609) Hypertension (I10) Added On:03/20 Active confirmed Problem Depression (932249314) Depressio n (F32.9) Added On:12/2024 Active confirmed Problem Hypothyroidism (04004876) Hypothyroidism (E03.9) Added On:11/19 Active confirmed Problem Asthma (575205729) Asthma (J45.909) Added On:11/19 Active confirmed Problem Elevated blood pressure (20325271) Elevated blood pressure (I10) Added On:12/19 Active confirmed Problem Screening colonoscop y (126936025) Encounter for screening colonoscopy (Z12.11) Added On:11/19 Active confirmed Problem Diverticulitis (23603652) Diverticulitis (K57.92) Added On:11/19 Active confirmed Problem Alcohol use disorder (9325342432) Alcohol use disorder (F10.99) Added On:10/18 Active confirmed Problem Seasonal allergic rhinitis (488994776) Seasonal allergic reaction (J30.2) Added On:10/19 Active confirmed Problem Colitis (92315112) Colitis (K52.9) Added On:11/19 Active confirmed Problem Physical examination , complete (51487941) Adult general medical examination (Z00.00) Added On:11/19 Active confirmed Problem Pure hypercholesterolemia (053836360) Elevated cholesterol (E78.00) Added On:03/20 Active confirmed Problem Screening for malignant neoplasm of breast (067816523) Breast cancer screening by mammogram (Z12.31) Added On:11/19 Active confirmed Problem Obstructive sleep apnea syndrome (disorder) (59083649) History of obstructive sleep apnea (Z86.69) Added On:11/19 Active confirmed Problem History of bariatric surgical procedure (154101465) History of Rozina-en-Y gastric 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) Added On:11/19 Active confirmed Problem History of total hysterectomy (018719059) History of total hysterectomy (Z90.710) Added On:11/19 Active confirmed Vital Signs Vital Sign Value Notes Appt Date Heart Rate 92 /min 04/04/2025 Temperature 98.0 degrees Fahrenheit 03/20 Respiratory Rate 20 /min 04/04/2025 Oximetry 100 % 04/04/2025 Blood pressure diastolic 80 mm Hg Height 63 in 04/04/2025 Blood pressure systolic 128 mm Hg 03/20 Weight 121.4 lbs 04/04/2025 BMI 21.5 kg/m2 04/04/2025 Encounters Date Time Type Facility Location Provider Diagnosis 09:40 AM Office Visit, Est Pt., Level 3 (47528) [facility] [address] [place] [address] Giovanni Zarate Hypertension I10 ; Elevated cholesterol E78.00 ; Syncope and collapse R55 and Dizziness R42 09:00 AM Office Visit, New Pt., Level 3 (49391) [facility] [address] [place] [address] Mary Elizondoyamel Adult general medical exam Z00.00 025 09:20 AM Office Visit [facility] [address] [address] Liu Ramesh Depression F32.9 and Alcohol abuse F10.10 025 03:20 PM Office Visit, Est Pt., Level 3 (88867) [facility] [address] [place] [address] Nam Uribe Alcohol use disorder F10.99 025 08:20 AM Office Visit, Est Pt., Level 3 (40430) [facility] [address] [place] [address] Nam Uribe Alcohol use disorder F10.99 025 01:00 PM Office Visit, Est Pt., Level 3 (05437) [facility] [place] [address] Giovanni Zarate Seasonal allergic reaction J30.2 025 08:00 AM Office Visit, Est Pt., Level 3 (56840) [facility] [address] [place] [place] [address] Nam Uribe Alcohol use disorder F10.99 025 02:00 PM Office Visit, Est Pt., Level 4 (27871) [facility] [address] [place] [address] Giovanni Zarate Encounter for screening colonoscopy Z12.11 ; Adult general medical examination Z00.00 ; Breast cancer screening by mammogram Z12.31 ; History of Rozina-en-Y gastric bypass Z98.84 ; History of total hysterectomy Z90.710 ; Colitis K52.9 ; Diverticulitis K57.92 ; Asthma J45.909 ; Hypothyroidism E03.9 ; Depression F32.9 and History of obstructive sleep apnea Z86.69 025 08:00 AM Office Visit, Est Pt., Level 3 (31239) [facility] [address] [place] [address] Nam Uribe Alcohol use disorder F10.99 ; Elevated blood pressure I10 and Vitamin B 12 deficiency E53.8 025 03:00 PM Office Visit, Est Pt., Level 4 (36512) [facility] [place] [address] Nam Uribe Alcohol use disorder F10.99 025 09:00 AM Office Visit, Est Pt., Level 3 (53401) [facility] [address] [place] [facility] [place] [address] Nam Uribe Alcohol use disorder F10.99 and B12 deficiency E53.8 025 08:40 AM Office Visit, Est Pt., Level 3 (57756) [facility] [address] [place] [facility] [place] [address] Giovanni Zarate Diverticulitis K57.92 and Depression F32.9 025 09:00 AM Office Visit [facility] [address] [place] [facility] [place] [address] Giovanni Zarate B12 deficiency E53.8 025 09:00 AM Office Visit [facility] [place] [address] Giovanni Zarate B12 deficiency E53.8 025 04:23 PM Telephone Encounter [facility] [place] [address] Nam Uribe 025 11:02 AM Telephone Encounter [facility] [place] [address] Nam Uribe 025 02:55 PM Telephone Encounter [facility] [place] [address] Nam Uribe 025 11:39 AM Telephone Encounter [facility] [place] [address] Nam Uribe 025 08:59 AM Telephone Encounter [facility] [place] [address] Nam Uribe 025 10:02 AM Telephone Encounter [facility] [place] [address] Nam Uribe Vitamin B12 deficiency E53.8 and History of Rozina-en-Y gastric bypass Z98.84 025 10:38 AM Telephone Encounter [facility] [place] [address] Giovanni Zarate 025 10:52 AM Telephone Encounter [facility] [place] [address] Nam Uribe 025 11:05 AM Telephone Encounter [address] [place] [address] Nam Uribe 025 09:05 AM Telephone Encounter [facility] [address] [facility] [place] [address] Nam Uribe 025 08:34 AM Telephone Encounter [facility] [address] [facility] [address] Nam Uribe 025 02:24 PM Telephone Encounter [facility] [place] [address] Giovanni Zarate 025 08:49 AM Telephone Encounter [address] [place] [address] Giovanni Zarate Assessments Encounter Date Diagnosis (ICD Code) Assessment Notes Treat ment Notes Section Notes 04/04/2025 Hypertension (ICD-10 - I10) Started patient on lisinopril today, educated patient to seek emergency medical intervention for evaluation if becoming dizzy, lightheaded, cp, SOB, or heart palpitations. 12/26/2024 Vitamin B12 deficiency (ICD-10 - E53.8) Have patient come in monthly to get B12 injections with RN. 11/15/2024 Seasonal allergic reaction (ICD-10 - J30.2) No changes made today in regards to medication regimen except for benadryl added as needed for night time relief. If benadryl is taken, do not give hydroxyzine as well. Educated the patient on the effects of seasonal allergies at this time and that this will pass on its own. Especially with the patient endorsing symptom improvement. 12/15/2024 Encounter for screening colonoscopy (ICD-10 - Z12.11) 10/26/2024 Adult general medical exam (ICD-10 - Z00.00) SUPR Programs: Based on an evaluation of [facility] Patient Placement Criteria, a recommendation for placement in Level III treatment is indicated and approved. Confirmation of diagnosis is documented in the initial treatment plan.Admit to the [facility] and initiate standing/protocol orders: The following PRN medications may be self-administered by patients under the supervision of approved staff or administered by nursing staff: Ibuprofen 200mg, 2-4 tablets by mouth (with food) every 6 hours as needed for pain (unless on lithium). (NOTE: Ibuprofen and acetaminophen may be given together, but alternating is recommended for continuous pain relief. Guaifenesin 400 mg, 1 tablet by mouth every four hours as needed for cough and chest congestion (take with large glass of water). Loratadine 10 mg, 1 tablet by mouth daily as needed for allergies, watery itchy eyes, or sinus drainage. Throat Lozenges, up to 4 tablets by mouth every three to four hours as needed for sore throat. Antacid tablets, 1-2 tablets by mouth every one to two hours as needed for indigestion or heart burn. If the client prefers liquid, could use: Liquid Antacid : 1 ounce by mouth up to four times daily as needed for indigestion or heartburn Omeprazole 20mg, 1 capsule by mouth once daily for 14 days for frequent heartburn (frequent heartburn is more than 2 episodes per week). Do not exceed 14 days. Do not give to client already taking a proton-pump inhibitor: esomeprazole (Nexium), lansoprazole (Prevacid), pantoprazole (Protonix), rabeprazole (Aciphex), dexlansoprazole (Dexilant) Zofran ODT disintegrating (under the tongue) 4 mg, 1-2 tablets every 8 hours as needed for nausea/vomiting. Milk of Magnesia (MOM): 1 ounce (30 milliliters) by mouth every day as needed for constipation. OR Miralax: Stir and fully dissolve 17 grams (1 packet or 1 capful to measured line) in any 4 to 8 ounces of beverage then drink once daily for constipation. Do not use for more than 7 days. OR Docusate 100 mg, 1 capsule twice daily as needed for constipation Hydrocortisone 1% Cream, apply topically (to the skin) to the affected area up to three times daily as needed for itching or inflammation (avoid eyes and genitals). 2% Antifungal Cream, apply topically (to the skin) as directed as needed to affected areas for athlete's foot or jock itch. Triple Antibiotic Ointment, apply topically (to the skin) up to three times daily as needed for minor cuts and scrapes. Carmex or Chapstick, apply topically (to the skin) as needed for chapped lips and skin. Orajel, apply to affected areas as needed for mouth or tooth pain. Lubricating Eye Drops, instill 1-2 drops to the affected eye(s) as needed for dry/irritated eye(s). Hemorrhoid medications, apply to affected area according to directions as needed for hemorrhoid discomfort and itch. Nix (Permethrin 1%) cream 2 ounces, apply topically (to the skin) as directed as needed for head lice. Sunscreen 30 SPF, Apply to exposed skin prior to exposure to sun. The following PRN medications must be approved by nursing staff before self-administration by patients: Diphenhydramine 25 mg, 2 tablets by mouth every 4 hours as needed for allergic reaction or itchy rash. Caution: Do not use hydroxyzine within 4 hours of diphenhydramine and vice versa. Loperamide 2 mg capsules, may give two capsules by mouth for the initial dose, followed by one capsule up to 3 times a day as needed for diarrhea. Acetaminophen 500 mg, 1 - 2 tablets by mouth every six hours as needed for pain. (NOTE: Ibuprofen and acetaminophen may be given together, but alternating is recommended for continuous pain relief). Oxygen-May administer oxygen 2L/min via nasal cannula if O2 saturation is less than 92%, AND client complains of shortness of breath. Target O2 saturation is 94-98%. Caution: Remember too much oxygen can be detrimental to a client with COPD. Oxygen is a drug and should be delivered by trained staff only. Nurses may remove superficial splinters and sutures from skin lacerations. May apply gauze or bandages to any weeping wounds. Contact nursing if there is pus, a foul odor, increased pain/redness/swelling , or if soaking through bandages. 12/15/2024 Adult general medical examination (ICD-10 - Z00.00) 04/04/2025 Elevated cholesterol (ICD-10 - E78.00) Started atorvastatin today with syncopal episodes and slight elevation of cholesterol. Patient educated if muscle pain, decreased urine output, or darkened urine occurs to stop taking medication and come back in immediately for evaluation. 12/26/2024 History of Rozina-en-Y gastric bypass (ICD-10 - Z98.84) 10/26/2024 Depression (ICD-10 - F32.9) 10/26/2024 Alcohol abuse (ICD-10 - F10.10) 12/28/2024 Elevated blood pressure (ICD-10 - I10) b/p elevated during appointment today, reports no headache, dizziness, or chest pain. Reports no history of hypertension and b/p at last visit WNL. Will continue to monitor b/p and if needed will refer to PCP. 03/07/2025 B12 deficiency (ICD-10 - E53.8) 04/04/2025 B12 deficiency (ICD-10 - E53.8) Delmy Coelho 04/04/2025 08:55 AM HEEL SPLITTER >During B12 injection visit client reported that [...] DUNG Zarate's schedule for an Urgent visit. 02/23/2025 Diverticulitis (ICD-10 - K57.92) 11/04/2024 Alcohol use disorder (ICD-10 - F10.99) 11/11/2024 Alcohol use disorder (ICD-10 - F10.99) 11/30/2024 Alcohol use disorder (ICD-10 - F10.99) 12/28/2024 Alcohol use disorder (ICD-10 - F10.99) 01/17/2025 Alcohol use disorder (ICD-10 - F10.99) Patient drinks alcohol 2-3 nights a week, onset in last couple of years. Living alone and recent life changes are triggers. No withdrawal symptoms such as shaking. History of 28-day rehab, recent Vivitrol injection, prior Naltrexone use. Patient is motivated to stop drinking and open to counseling and medication. - Prescribed Acamprosate, 2 pills three times a day. - Referral to counseling for support. - Provided patient information sheet for Acamprosate. 02/07/2025 Alcohol use disorder (ICD-10 - F10.99) Patient is actively working to maintain sobriety and attending AA meetings. She faces ongoing challenges with alcohol accessibility and temptation in daily environments. She relies on her boss for transportation to minimize exposure to alcohol. She consistently takes Campral three times daily and feels it is more helpful than Vivitrol. - Refilled Campral prescription. - Discussed option to continue or discontinue Vivitrol. Opted to discontinue Vivitrol at this time. - Supported ongoing participation in AA meetings. 12/28/2024 Vitamin B 12 deficiency (ICD-10 - E53.8) 02/07/2025 B12 deficiency (ICD-10 - E53.8) 04/04/2025 Syncope and collapse (ICD-10 - R55) Educated patient that if symptoms like this occur again to call 911 and/or go to nearest ED for further evaluation. 02/23/2025 Depression (ICD-10 - F32.9) 12/15/2024 Breast cancer screening by mammogram (ICD-10 - Z12.31) 12/15/2024 History of Rozina-en-Y gastric bypass (ICD-10 - Z98.84) 04/04/2025 Dizziness (ICD-10 - R42) 12/15/2024 History of total hysterectomy (ICD-10 - Z90.710) Educated patient to establish with a new SOLUTIONS MANAGER in the area she is living now. 12/15/2024 Colitis (ICD-10 - K52.9) 12/15/2024 Diverticulitis (ICD-10 - K57.92) 12/15/2024 Asthma (ICD-10 - J45.909) 12/15/2024 Hypothyroidism (ICD-10 - E03.9) 12/15/2024 Depression (ICD-10 - F32.9) 12/15/2024 History of obstructive sleep apnea (ICD-10 - Z86.69) 10/26/2024 Other Clinician met w ith client to assess needs for residential services. Clinician gathered information regarding historical presentation of mental health and substance use symptoms including withdrawal, HIV Risk assessment, psychiatric hospitalization history and presenting concern. Clinician conducted PHQ9 and CSSRS assessments as well as social drivers of health screening for the purposes of identifying additional service needs. 11/04/2024 Other Discussed medication side effects, adverse effects, risks, benefits, as well as interactions. Encouraged non-use of alcohol. Recommended participation in recovery groups and/or counseling services. May contact office with questions or concerns. 11/11/2024 Other Discussed medication side effects, adverse effects, risks, benefits, as well as interactions. Encouraged non-use of alcohol. Recommended participation in recovery groups and/or counseling services. May contact office with questions or concerns. 11/30/2024 Other Discussed medication side effects, adverse effects, risks, benefits, as well as interactions. Encouraged non-use of alcohol. Has Vivitrol alert bracelet, necklace, and wallet card. Recommended participation in recovery groups and/or counseling services. May contact office with questions or concerns. 12/28/2024 Other Discussed medication side effects, adverse effects, risks, benefits, as well as interactions. Encouraged non-use of alcohol. Has Vivitrol alert bracelet, necklace, and wallet card. Recommended participation in recovery groups and/or counseling services. May contact office with questions or concerns. 01/17/2025 Other Acamprosate material was printed Discussed medication side effects, adverse effects, risks, benefits, as well as interactions. Encouraged non-use of alcohol. Has Vivitrol alert bracelet, necklace, and wallet card. Recommended participation in recovery groups and/or counseling services. May contact office with questions or concerns. 02/07/2025 Other Discussed medication side effects, adverse effects, risks, benefits, as well as interactions. Encouraged non-use of alcohol. Recommended participation in recovery groups and/or counseling services. May contact office with questions or concerns 02/23/2025 Other Had patient abbi Looney before leaving on clarification for referrals sent at last visit. Plan Of Treatment Future Test Test Name Order Date Mammogram Breast-Bilateral d iagnostic mammogram/ultrasound, and/or biopsy as clinically indicated 12/15/2024 Echocardiogram 04/04/2025 Electrocardiogram (EKG) 04/04/2025 CT Scan : Head W and W/O Contrast 2024 CBC With Differential/Platelet* 04/04/20 25 CMP 14 Comprehensive Metabolic Panel* Next Appt Details Provider Name:Giovanni ochoa, 05/02/2025 09:00:00 AM, [address], [place], [address], Insurance Providers Payer Name Payer Address Payer Phone Subscriber Number Group Number Insured Name Patient Relationship to Insured Coverage Start Date Coverage End Date [facility] [address] [address] [place] [address] [id number] Elisa Iglesias Self - patient is the insured 5 MEDICARE PART A [address] [place] [address] [id number] Elisa Iglesias Self - patient is the insured [address] [facility] [address] [place] [address] [id number] Elisa Iglesias Self - patient is the insured 5 Medications Administered Medication Instructions Date of Administration Dosage Diagnosis (ICD Code) Notes Cyanocobalamin (B-12) 12/28/2024 1000 ug Delmy Coelho 12/28/2024 08:30 AM CDT >Given IM LMD, tolerated well. [facility]# [id number] . Cyanocobalamin (B-12) 02/07/2025 1000 ug Delmy Coelho D 02/07/2025 09:20 AM CDT >Given IM RMD, tolerated well. [facility]# [id number] . Cyanocobalamin (B-12) 03/07/2025 1000 ug Delmy Coelho D 03/07/2025 09:15 AM HEEL SPLITTER >Given IM LMD, tolerated well. [facility]# [id number] . Cyanocobalamin (B-12) 04/04/2025 1000 ug Coelho, Delmy D 04/04/2025 09:05 AM HEEL SPLITTER >Given IM RMD, tolerated well. [facility]# [id number] . Vivitrol 11/30/2024 380 mg Coelho, Delmy D 11/30/2024 08:45 AM CDT >Given Lt Gluteus, tolerated well. [facility]# [id number]. Vivitrol 12/28/2024 380 mg Coelho, Delmy D 12/28/2024 08:45 AM CDT >Given IM Rt Gluteus, tolerated well. [facility]# [id number]. Medical (General) History Medical History History ICD Code Hypothyroidism asthma colitis endometriosis Vitamin b12 deficiency Alcohol use disorder Irritable bowel syndrome Hypertension Surgical History Surgery Date(Month/Year) TOTAL HYSTERECTOMY 04/2000 cholecystectomy cervical fusion maniscus repair right and left c section hernia repair x 2 bunionectomy gastric bypass Hospitalization History Reason Date(Month/Year)
== END 2025-04-04 10:02 | disposition home or self-care (01) ==
PROVIDERS: PCP Registered Nurse; Visit Provider Registered Nurse
DX: R55 Syncope and collapse (principal); I10 Essential (primary) hypertension; R42 Dizziness and giddiness
CPT/HCPCS: 93005

== ENCOUNTER 2025-04-06 08:10 | Emergency (ER) | payer OTHER, BC, SELFPAY ==
--- OUTSIDE RECORDS SUMMARY | 2025-01-25 08:40 | XMS_ITS ---
Author Organization [facility] Address [address] [place] [address] Phone [phone] Care Team Providers Care Bullion Weigher Name Role Phone Nam Uribe APRN Primary [...] Provider Diagnosis 01/25/2025 08:40 AM [facility] [place] [place] [address] Nam Uribe Plan Of Treatment Next Appt Details Provider Name:Giovanni ochoa, 05/02/2025 09:00:00 AM, [place] [address] [place], [address], Medical (General) History Medical History History ICD Code Hypothyroidism asthma colitis endometriosis Vitamin b12 deficiency Alcohol use disorder Irritable bowel syndrome Hypertension Surgical History Surgery Date(Month/Year) TOTAL HYSTERECTOMY 04/2000 cholecystectomy cervical fusion maniscus repair right and left c section hernia repair x 2 bunionectomy gastric bypass Hospitalization History Reason Date(Month/Year) Progress Notes * Elisa IGLESIAS SDOB:1960 (65 yo F)Acc No.[id number]:01/25/2025 UNLOCKED PROGRESS NOTE Patient: Elisa VINSON Provider: Quan Uribe, MSN, CARTON FILLER, MARKING MACHINE OPERATOR-C :1960 A ge:64 Y S ex:Female Date:01/25/2025 Address:[address] [place], [place] [id number] Subjective: * Chief Complaints: * 1 . 1 month MAT Vivitrol. Scheduling in advance b/c it will need to be delivered from [facility] in advance.. * Screening: * * Medical History: Objective: * Vitals: Assessment: Plan: * Treatment: * Care Plan Details* * Electronic signature of Belén Uribe APRN, [id number] on 04/06/2025 at 08:22 AM TRAIN CONDUCTOR Sign off status: Pending * Provider: Quan Uribe, MSN, CARTON FILLER, MARKING MACHINE OPERATOR-C Date: 1 Generated for Humberto betancourt/Josue/Elenaitting on: 06/07/2024 08:22 AM TRAIN CONDUCTOR
--- OUTSIDE RECORDS SUMMARY | 2025-01-25 09:00 | XMS_ITS ---
Author Organization [facility] Address [address] [place] [address] Phone [phone] Care Team Providers Care Salmon [place] Vessel Operator Name Role Phone Nam Uribe APRN Primary Care Provider [phone] Giovanni Zarate REASON FOR VISIT q monthly B12 injection Social History Sex Observation Social History Observation Description Sex Observation Female Sexual Orientation Social History Observation Description Sexual Orientation Straight or heterose xual Gender Identity Social History Observation Description Gender Identity Female Encounters Date Time Type Facility Location Provider Diagnosis 01/25/2025 09:00 AM Office Visit [facility] [place] [address] [place] [address] Giovanni Zarate Plan Of Treatment Next Appt Details Provider Name:Giovanni ochoa, 05/02/2025 09:00:00 AM, [address], [place], [address], Medical (General) History Medical History History ICD Code Hypothyroidism asthma colitis endometriosis Vitamin b12 deficiency Alcohol use disorder Irritable bowel syndrome Hypertension Surgical History Surgery Date(Month/Year) TOTAL HYSTERECTOMY 04/2000 cholecystectomy cervical fusion maniscus repair right and left c section hernia repair x 2 bunionectomy gastric bypass Hospitalization History Reason Date(Month/Year) Progress Notes * Elsia IGLESIAS SDOB:1960 (65 yo F)Acc No.[id number]:01/25/2025 UNLOCKED PROGRESS NOTE Progress Note Patient: Elisa VINSON Provider: Jeanette Zarate APN :1960 A ge:64 Y S ex:Female Date:01/25/2025 Address:[address] [place], [place] [address] Pcp:Nam Uribe Subjective: * Chief Complaints: * 1 . q monthly B12 injection. * Screening: * * Medical History: Objective: * Vitals: Assessment: Plan: * Treatment: * * Electronic signature of Dmitry Zarate on 04/06/2025 at 08:19 AM PORCELAIN WAXER Sign off status: Pending * Provider: Jeanette Zarate APN Date: 1 Generated for Humberto betancourt/Josue/eTransmitting on: 06/07/2024 08:19 AM PORCELAIN WAXER
--- OUTSIDE RECORDS SUMMARY | 2025-04-04 09:40 | XMS_ITS ---
Author Organization [facility] Address [address] [place] [address] Phone [phone] Care Team Providers Care Field Service Technician Name Role Phone Nam Uribe APRN Primary Care Provider Giovanni Zarate Unavailable REASON FOR VISIT Schedule per FERTILIZER PROCESSING SUPERVISOR Tessa as client here for a nurse visit & reported thinking she had a couple ofSeizures a few weeks ago. Client described as getti ng dizzy, room spinning, & client fell x2. Medications Medication SIG (Take, Route, Frequency, Duration) Notes Start Date End Date Diagnosis (ICD Code) Status Lisinopril 10 MG Tablet 1 tablet Orally Once a day; Duration: 30 day(s) 5 Hypertension (ICD_10 - I10) Active Atorvastatin Calcium 40 MG Tablet 1 tablet Orally Once a day; Duration: 30 day(s) 5 Hypertension (ICD_10 - I10) Active Budesonide 3 MG Capsule Delayed Release Particles 3 capsules Orally in the morning; Duration: 30 days Diverticulitis (ICD_10 - K57.92) Active Vivitrol 380 MG Suspension Reconstituted as directed Intramuscular every 28 days 5 Alcohol use disorder (ICD_10 - F10.99) Not-Takin g Cyanocobalamin 1000 MCG/ML Solution 1 mL Injection once a month; Duration: 30 days 5 Vitamin B12 deficiency (ICD_10 - E53.8) Active hydrOXYzine Pamoate 25 MG Capsule 1-2 capsules Orally every 4 hours as needed for anxiety, agitation, or inability to sleep. Do not give within 4 hours of diphenhydramine.; Duration: 14 days 5 Depression (ICD_10 - F32.9) Active 8 Hour Pain Relief Activ e Black Cohosh Root 540 MG Capsule as directed Orally Adult general medical exam (ICD_10 - Z00.00) Active Albuterol Sulfate HFA 108 (90 Base) MCG/ACT [...] general medical exam (ICD_10 - Z00.00) Active Vitamin D3 250 MCG (32525 UT) Capsule 1 capsule Orally Once a day Adult general medical exam (ICD_10 - Z00.00) Active Escitalopram Oxalate 20 MG Tablet 1 tablet Orally Once a day Adult general medical exam (ICD_10 - Z00.00) Active Budesonide-Formote rol Fumarate 160-4.5 MCG/ACT Aerosol as directed Inhalation Adult general medical exam (ICD_10 - Z00.00) Active Allergy Nasal Dupuyer 205.5 MCG/SPRAY Solution 2 sprays (1 spray in each nostril) Nasally Twice a day Adult general medical exam (ICD_10 - Z00.00) Active Acamprosate Calcium 333 MG Tablet Delayed Release 2 tablets Orally 3 times a day; Duration: 30 days 5 Alcohol use disorder (ICD_10 - F10.99) Active Social History Sex Observation Social History Observation Description Sex Observation Female Sexual Orientation Social History Observation Description Sexual Orientation Straight or heterose xual Gender Identity Social History Observation Description Gender Identity Female Social History Primary Social History Social Info Question Answer Notes Living Arrangement Living Arrangement: Dependent María melendez Living with: Child Is this a supportive environment? Yes Single Question Alcohol Screening How many times in the past year have you had (4 for women, or 5 for men) or more drinks in a day? 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 Alcohol use: Sober, actively trying to stay sober, attends AA meetings Problems Problem Type SNOMED Code ICD Code Dates Problem Status W/U Status Risk Notes Problem Hypertension (93063175) Hyperten hannah (I10) Added On:03/20 Active confirmed Problem Pure hypercholesterolemia (294891860) Elevated cholesterol (E78.00) Added On:03/20 Active confirmed Vital Signs Vital Sign Value Appt Date Weight 121.4 lbs 04/04/2025 Height 63 in 04/04/2025 BMI 21.5 kg/m2 04/04/2025 Blood pressure systolic 128 mm Hg 04/04/20 25 Blood pressure diastolic 80 mm Hg 025 Heart Rate 92 /min 04/04/2025 Oximetry 100 % 04/04/2025 Temperature 98.0 degrees Fahrenheit 04/04/20 25 Respiratory Rate 20 /min 04/04/2025 Encounters Date Time Type Facility Location Provider Diagnosis 09:40 AM Office Visit, Est Pt., Level 3 ([address]) [place] [address] [place] [address] Giovanni Zarate Hypertension I10 ; Elevated cholesterol E78.00 ; Syncope and collapse R55 and Dizziness R42 Assessments Encounter Date Diagnosis (ICD Code) Assessment Notes Treat ment Notes Section Notes 04/04/2025 Hypertension (ICD-10 - I10) Started patient on lisinopril today, educated patient to seek emergency medical intervention for evaluation if becoming dizzy, lightheaded, cp, SOB, or heart palpitations. 04/04/2025 Elevated cholesterol (ICD-10 - E78.00) Started atorvastatin today with syncopal episodes and slight elevation of cholesterol. Patient educated if muscle pain, decreased urine output, or darkened urine occurs to stop taking medication and come back in immediately for evaluation. 04/04/2025 Syncope and collapse (ICD-10 - R55) Educated patient that if symptoms like this occur again to call 911 and/or go to nearest ED for further evaluation. 04/04/2025 Dizziness (ICD-10 - R42) Plan Of Treatment Medication Medication Name Sig Start Date Stop Date Notes Lisinopril 10 MG Tablet 1 tablet Orally Once a day; Duration: 30 day(s) 04/04/2025 Fexofenadine HCl 180 MG Tablet 1 tablet Swallow whole with water; do not take with fruit juices. Orally Once a day Atorvastatin Calcium 40 MG Tablet 1 tablet Orally Once a day; Duration: 30 day(s) 04/04/2025 Treatment Notes Assessment Notes Hypertension Started patient on l isinopril today, educated patient to seek emergency medical intervention for evaluation if becoming dizzy, lightheaded, cp, SOB, or heart palpitations. Elevated cholesterol Started atorvastatin today with syncopal episodes and slight elevation of cholesterol. Patient educated if muscle pain, decreased urine output, or darkened urine occurs to stop taking medication and come back in immediately for evaluation. Syncope and collapse Educated patient th at if symptoms like this occur again to call 911 and/or go to nearest ED for further evaluation. Future Test Test Name Order Date Echocardiogram 04/04/2025 Electrocardiogram (EKG) 04/04/2025 CT Scan : Head W and W/O Contrast 2024 CBC With Differential/Platelet* 04/04/20 25 CMP 14 Comprehensive Metabolic Panel* Next Appt Details Follow Up: 2 Weeks, Reason: Provider Name:Giovanni ochoa, 05/02/2025 09:00:00 AM, [address], [place], [address], Medical (General) History Medical History History ICD Code Hypothyroidism asthma colitis endometriosis Vitamin b12 deficiency Alcohol use disorder Irritable bowel syndrome Hypertension Surgical History Surgery Date(Month/Year) TOTAL HYSTERECTOMY 04/2000 cholecystectomy cervical fusion maniscus repair right and left c section hernia repair x 2 bunionectomy gastric bypass Hospitalization History Reason Date(Month/Year) Progress Notes * MILY Elisa SDOB:1960 (65 yo F)Acc No.[id number]:04/04/2025 UNLOCKED PROGRESS NOTE Progress Note Patient: Elisa VINSON Provider: Jeanette Zarate APN :1960 A ge:65 Y S ex:Female Date:04/04/2025 Address:[address] [place], [place] [id number] Pcp:Nma Uribe Check In:09:01 AM CSTCheck O ut:09:36 AM STOCK WETTER Subjective: * Chief Complaints: * 1 . Schedule per FERTILIZER PROCESSING SUPERVISOR Tessa as client here for a nurse visit & reported thinking she had a couple of Seizures a few weeks ago. Client described as getti ng dizzy, room spinning, & client fell x2.. * HPI: D epression Screening: PHQ-9 L ittle interest or pleasure in doing things N ot at all, F eeling down, depressed, or hopeless N ot at all, T rouble falling or staying asleep, or sleeping too much N ot at all, F eeling tired or having little energy N ot at all, P oor appetite or overeating N ot at all, F eeling bad about yourself or that you are a failure, or have let yourself or your family down N ot at all, T rouble concentrating on things, such as reading the newspaper or watching television N ot at all, M oving or speaking so slowly that other people could have noticed; or the opposite, being so fidgety or restless that you have been moving around a lot more than usual N ot at all, T houghts that you would be better off or of hurting yourself in some way N ot at all, T otal Score 0 . I ntervention D epression Screening Findings P ositive, F ollow-Up for Depression P atient refused intervention. S creening: [place] Suicide Severity Rating Scale (LF) D o you want to initiate with S creener form, 1 . Wish to be : Have you wished you were or wished you could go to sleep and not wake up? N o, 2 . Suicidal Thoughts: Have you actually had any thoughts of killing yourself? N o, 6 . Suicide Behavior Question: Have you ever done anything,started to do anything, or prepared to end your life? N o, I nterpretation: L ow Risk. P reventative Health and Wellness follow-up: . C SSRS Interpretation and Follow Up Plan: CSSRS Interpretation and Follow Up Plan C SSRS Screen documented using SF Y es, R isk Disposition from SF L ow - No Follow Up Plan Required, F ollow Up Plan N o Follow Up Plan required at this time., T imeframe of Screening T filiberto.? S ummary: 65-year-old female presents to the clinic today for her B12 shot, but told Estela, the RN that she was having s/s of dizziness and syncope. The patient describes that 2 weeks ago she was at her son's house playing with grandkids, bent over to play with grandkids, stood up and felt dizzy. She was told by her son that she was speaking gibberish and passed out in the room next to where she was originally. Stood up immediately after, then walked into the kitchen with the son and passed out again, denies hitting head both times. She denies that she had slurred speech, headache, vision changes, sensitivity to light, or a post-ictal phase. She states that after she felt very tired and took a very long nap. She states that after she woke up she felt fine. She denies any SOB, CP, fevers, body aches, chills, dizziness, vertigo, or any other issues today. She states that was the only occurrence of this and has not happened since then. * ROS: G eneral/Constitutional: Fatigue d enies. S leep disturbance d enies. W eight loss d enies. O phthalmologic: Denies V ision Changes. D enies B lurred vision.?Denies E ye problems. E NT: Denies H earing concerns. D enies D ecreased hearing. D enies D ecreased sense of smell. D enies D ry mouth. D enies E ar pain.? R espiratory: Cough d enies. S hortness of breath at rest d enies. S hortness of breath with exertion d enies. W heezing d enies. C ardiovascular: Chest pain at rest d enies. C hest pain with exertion?denies. D yspnea on exertion d enies. I rregular heartbeat d enies. ? G astrointestinal: Abdominal pain d enies. B lood in stool d enies.?Change in bowel habits d enies. C onstipation d enies. H eartburn d enies.? * Screening: * * Medical History: H ypothyroidism, Asthma, Colitis, Endometriosis, Vitamin b12 deficiency, Alcohol use disorder, Irritable bowel syndrome, Hypertension. * Surgical History: T OTAL HYSTERECTOMY 04/2000, cholecystectomy , cervical fusion , maniscus repair right and left , c section , hernia repair x 2 , bunionectomy , gastric bypass . * Family History: F ather: , COPD. M other: , alzheimers. 2 brother(s) , 3 sister(s) - healthy. 2 son(s) , 1 daughter(s) - healthy. . * Social History: P [facility] Social History: L iving Arrangement L iving Arrangement: D ependent Living, L iving with: Consuelo pitts, I s this a supportive environment? Y es. A lcohol Use A lcohol Use Frequency: Weekly or Daily, T ype of alcohol consumed W ine, Q uanity consumed on those occasions 3 or more glasses. I llicit Substance Usage I llicit Substance Usage: N o. 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 S amie Question Alcohol Screening H ow many times in the past year have you had (4 for women, or 5 for men) or more drinks in a day? 1 00. 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 * Medications: T aking Acamprosate Calcium 333 MG Tablet Delayed Release 2 tablets Orally 3 times a day , Taking Allergy Nasal Dupuyer 205.5 MCG/SPRAY Solution 2 sprays (1 spray in each nostril) Nasally Twice a day , Taking Budesonide-Formoterol Fumarate 160-4.5 MCG/ACT Aerosol as directed Inhalation , Taking Vitamin D3 250 MCG (03292 UT) Capsule 1 capsule Orally Once a day , Taking Escitalopram Oxalate 20 MG Tablet 1 tablet Orally Once a day , Taking Montelukast Sodium 10 MG Tablet 1 tablet Orally Once a day in the evening , Taking traZODone HCl 100 MG Tablet 1 tablet at bedtime as needed Orally Once a day , Taking Ocuvite Adult 50+ - Capsule as directed Orally , Taking Gabapentin 300 MG Capsule 1 capsule Orally Once a day , Taking Fexofenadine HCl 180 MG Tablet 1 tablet Swallow whole with water; do not take with fruit juices. Orally Once a day , Taking Levothyroxine Sodium 100 MCG Tablet 1 tablet in the morning on an empty stomach Orally Once a day , Taking Meloxicam 7.5 MG Tablet 1 tablet Orally Once a day , Taking Triamcinolone Acetonide 0.1 % Cream 1 application Externally Two times a Week , Taking Albuterol Sulfate HFA 108 (90 Base) MCG/ACT Aerosol Solution 2 puffs as needed Inhalation every 4-6 hours , Taking 8 Hour Pain Relief , Taking Black Cohosh Root 540 MG Capsule as directed Orally , Taking Cyanocobalamin 1000 MCG/ML Solution 1 mL Injection once a month , Taking hydrOXYzine Pamoate 25 MG Capsule 1-2 capsules Orally every 4 hours as needed for anxiety, agitation, or inability to sleep. Do not give within 4 hours of diphenhydramine. , Taking Budesonide 3 MG Capsule Delayed Release Particles 3 capsules Orally in the morning , Not-Taking Vivitrol 380 MG Suspension Reconstituted as directed Intramuscular every 28 days , Medication List reviewed and reconciled with the patient Objective: * Vitals: I nitials: HM, Wt:121.4, Ht: 63, BMI:21.5, BP:128/80, HR:92, Oxygen sat %:100, Temp:98.0, RR:20, LMP: no menses, Pain scale:0. * Examination: G eneral Examination: GENERAL APPEARANCE: w ell developed, well nourished. HEAD: n ormocephalic, atraumatic. LYMPH NODES: n o palpable adenopathy. SKIN: n ormal, no rashes. HEART: r egular rate and rhythm, S1, S2 normal, no murmurs.? LUNGS: c lear to auscultation bilaterally, good air movement. ABDOMEN: s oft, nontender, nondistended, bowel sounds present, no masses palpable, no hepatosplenomegaly. PERIPHERAL PULSES: 2 + throughout, normal. NEUROLOGIC: c ranial nerves 2-12 grossly intact, alert and oriented, nonfocal, gait normal. Assessment: * Assessment: 1. H ypertension - I10 (Primary) 2 . E levated cholesterol - E78.00 ? 3 . S yncope and collapse - R55 4 . D izziness - R42 ? Plan: * Treatment: 2. E levated cholesterol Notes: Started atorvastatin today with syncopal episodes and slight elevation of cholesterol. Patient educated if muscle pain, decreased urine output, or darkened urine occurs to stop taking medication and come back in immediately for evaluation. 3. S yncope and collapse L AB: CBC With Differential/Platelet* (Ordered for 04/04/2025) (Collection Date & Time - 04/04/2025) L AB: CMP 14 Comprehensive Metabolic Panel* (Ordered for 04/04/2025) (Collection Date & Time - 04/04/2025) I maging: Electrocardiogram (EKG) (Ordered for 04/04/2025) I maging: CT Scan : Head W and W/O Contrast (Ordered for 04/04/2025) I maging: Echocardiogram (Ordered for 04/04/2025) Notes: Educated patient that if symptoms like this occur again to call 911 and/or go to nearest ED for further evaluation. 4. D izziness L AB: CBC With Differential/Platelet* (Ordered for 04/04/2025) (Collection Date & Time - 04/04/2025) L AB: CMP 14 Comprehensive Metabolic Panel* (Ordered for 04/04/2025) (Collection Date & Time - 04/04/2025) I maging: Electrocardiogram (EKG) (Ordered for 04/04/2025) I maging: CT Scan : Head W and W/O Contrast (Ordered for 04/04/2025) I maging: Echocardiogram (Ordered for 04/04/2025) * Procedure Codes: G 0467 [facility] VISIT ESTABLISHED PATIENT * Preventive Medicine: Counseling: S MOKING: P atient counselled on the dangers of tobacco use and urged to quit. 1 06/05/2024 .. * Follow Up: 2 Weeks * * Electronic signature of Dmitry Zarate on 04/06/2025 at 08:22 AM STOCK WETTER Sign off status: Pending * Provider: Jeanette Zarate APN Date: 06/05/2024 Generated for Humberto betancourt/Josue/Benny on: 1 06/07/2024 08:22 AM STOCK WETTER History and Physical Notes * HPI (History of Present Illness) Category c/o Denies Symptom Duration Details Notes Catego ry Notes Depression Screening PHQ-9 Little interest or pleasure in doing things: Not at all Feeling down, depressed, or hopeless: No t at all Trouble falling or staying asleep, or sl eeping too much: Not at all Feeling tired or having little energy: N ot at all Poor appetite or overeating: Not at all Feeling bad about yourself o r that you are a failure, or have let yourself or your family down: Not at all Trouble concentrating on thi ngs, such as reading the newspaper or watching television: Not at all Moving or speaking so slowly that other people could have noticed; or the opposite, being so fidgety or restless that you have been moving around a lot more than usual: Not at all Thoughts that you would be b fdai off or of hurting yourself in some way: Not at all Total Score: 0 Intervention Depression Screen ing Findings: Positive Follow-Up for Depression: Patient refuse d intervention Summary 65-year-old female presents to the clinic today for her B12 shot, but told Estela, the RN that she was having s/s of dizziness and syncope. The patient describes that 2 weeks ago she was at her son's house playing with grandkids, bent over to play with grandkids, stood up and felt dizzy. She was told by her son that she was speaking gibberish and passed out in the room next to where she was originally. Stood up immediately after, then walked into the kitchen with the son and passed out again, denies hitting head both times. She denies that she had slurred speech, headache, vision changes, sensitivity to light, or a post-ictal phase. She states that after she felt very tired and took a very long nap. She states that after she woke up she felt fine. She denies any SOB, CP, fevers, body aches, chills, dizziness, vertigo, or any other issues today. She states that was the only occurrence of this and has not happened since then. Screening [place] Suicid e Severity Rating Scale (LF) Do you want to initiate with : Screener form 1. Wish to be : Have you wished you were or wished you could go to sleep and not wake up?: No 2. Suicidal Thoughts: Have you actually had any thoughts of killing yourself?: No 6. Suicide Behavior Question: Have you ever done anything,started to do anything, or prepared to end your life?: No Interpretation:: Low Risk Preventative Health and Wellness follow-up . CSSRS Interpretation and Follow Up Plan CSSRS Interpretation and Follow Up Plan CSSRS Screen documented using SF: Yes Risk Disposition from SF: Low - No Follo w Up Plan Required Follow Up Plan: No Follow Up Plan requir ed at this time. Timeframe of Screening: Today Examination Category Field Details Notes Category Notes General Examination GENERAL APPEARANCE: well developed , well nourished HEAD: normocephalic, atrau matic HEART: regular rate and rhy thm, S1, S2 normal, no murmurs LUNGS: clear to auscultatio n bilaterally, good air movement ABDOMEN: soft, nontender, non distended, bowel sounds present, no masses palpable, no hepatosplenomegaly NEUROLOGIC: cranial nerves 2-12 grossly intact, alert and oriented, nonfocal, gait normal SKIN: normal, no rashes PERIPHERAL PULSES: 2+ throughout, yeny l LYMPH NODES: no palpable adenopat hy
--- NOTE | ~2025-04-06 | XR_ITS ---
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 Findings: There is a fracture of the distal radius with intra-articular extension.Nondisplaced mid to distal scaphoid fracture. Moderate degenerative changes of the first metacarpal carpal joint. Soft tissue swelling. Impression: Distal radial fractureNondisplaced scaphoid fracture. Reviewed, dictated and finalized at location P. MACHINE OPERATOR Impression: Distal radial fractureNondisplaced scaphoid fracture.
--- NOTE | ~2025-04-06 | CT_ITS ---
EXAM/PROCEDURE: CT wrist LT wo con HISTORY: scaphoid/wrist fx COMPARISON: April 06 x-rays TECHNIQUE: Left wrist CT FINDINGS: No scaphoid fracture lucency. Mildly comminuted, impacted and minimally displaced distal radius fracture with the radiocarpal articulation intact. The scapholunate space is borderline measuring 3.1 mm. The proximal and distal arcades otherwise appear normal. Visualized portions of metacarpal bones appear intact. Severe degenerative changes at the thumb CMC joint with approximately 6 mm of degenerative appearing subluxation, subchondral cystic changes and prominent osteophyte formation. IMPRESSION: 1. No scaphoid fracture lucency. If there is concern for possible occult scaphoid injury, correlation with wrist MRI recommended. 2. Mildly comminuted slightly impacted distal radius fracture with preservation of the radiocarpal articulation. Borderline separation of the scapholunate space may represent scapholunate ligamentous disruption. 3. Severe osteoarthritic degenerative changes including degenerative appearing subluxation of the thumb CMC joint. 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 No scaphoid fracture lucency. If there is concern for possible occult scapho id injury, correlation with wrist MRI recommended. 2. Mildly comminuted slightly impacted distal radius fracture with preservation of the radiocarpal articulation. Borderline separation of the scapholunate spa ce may represent scapholunate ligamentous disruption. 3. Severe osteoarthritic degenerative changes including degenerative appearing subluxation of the thumb CMC joint.
--- NOTE | ~2025-04-06 | XR_ITS ---
EXAMINATION: XR hand LT min 3V, 04/06/2025 8:30 RESOLUTION AGENT HISTORY: FOOSH; LEFT WRIST/HAND PAIN, SWELLING BRUISING COMPARISON: No comparisons available. Findings: No acute fracture or malalignment. No significant degenerative changes. Soft tissues unremarkable. Impression: No acute fracture or malalignment. Reviewed, dictated and finalized at location P. LUTION AGENT Impression: No acute fracture or malalignment.
--- OUTSIDE RECORDS SUMMARY | 2025-04-06 08:13 | XMS_ITS | Encounter Summary ---
Author Organization [facility] Address [address] [place] [address] Care Team Providers Care Aemt Name Role Phone Patsy Ta MD Primary Care Provider [phone] Encounter Details Date Type Department Care Team (Latest Contact Info) Description 11/06/2001 Outpatient Historical [facility] [place] [address] [address] SCREENING MAMM-MAILG NEOPL-OTHER (Primary Dx) Social History Tobacco Use Types Packs/Day Years Used Date Smoking Tobacco: Never Assessed Comments Unknown Sex and Gender Information Value Date Recorded Sex Assigned at Not on file Legal Sex Female 5:02 AM CORE MAKER HELPER Gender Identity Not on file Sexual Orientation Not on file documented as of this encounter Plan of Treatment Not on file documented as of this encounter Visit Diagnoses Diagnosis Other screening mammogram- Primary documented in this encounter Care Teams Aemt Relationship Specialty [place] [address] [place] [address] PCP - General 11/06/01 documented as of this encounter
--- OUTSIDE RECORDS SUMMARY | 2025-04-06 08:13 | XMS_ITS | Encounter Summary ---
Author Organization [facility] Address [address] [place] [address] Care Team Providers Care Managed Services Sales Consultant Name Role Phone Patsy Ta MD Primary Care Provider [phone] Encounter Details Date Type Department Care Team (Latest Contact Info) Description 02/10/2004 Outpatient Historical HIS [facility] [place] [address] [address] SCREENING MAMM-MAILG NEOPL-OTHER (Primary Dx) Social History Tobacco Use Types Packs/Day Years Used Date Smoking Tobacco: Never Assessed Comments Unknown Sex and Gender Information Value Date Recorded Sex Assigned at Not on file Legal Sex Female 5:02 AM LEAN FACILITATOR Gender Identity Not on file Sexual Orientation Not on file documented as of this encounter Plan of Treatment Not on file documented as of this encounter Visit Diagnoses Diagnosis Other screening mammogram- Primary documented in this encounter Care Teams Managed Services Sales Consultant Relationship Specialty [place] [address] [facility] [address] [place] [address] PCP - General 11/06/01 documented as of this encounter
--- OUTSIDE RECORDS SUMMARY | 2025-04-06 08:15 | XMS_ITS | Encounter Summary ---
Author Organization [facility] Address [address] [place] [address] Care Team Providers Care Moving Worker Name Role Phone Patsy Ta MD Primary Care Provider [phone] Encounter Details Date Type Department Care Team (Latest Contact Info) Description 12/04/2005 Outpatient Historical HIS [facility] [place] [address] [address] Other Screening Mammogram (Primary Dx) Social History Tobacco Use Types Packs/Day Years Used Date Smoking Tobacco: Never Assessed Comments Unknown Sex and Gender Information Value Date Recorded Sex Assigned at Not on file Legal Sex Female 5:02 AM MERCERIZING RANGE FEEDER Gender Identity Not on file Sexual Orientation Not on file documented as of this encounter Plan of Treatment Not on file documented as of this encounter Visit Diagnoses Diagnosis Other screening mammogram- Primary documented in this encounter Care Teams Moving Worker Relationship Specialty [place] [address] [facility] [address] [place] [address] PCP - General 11/06/01 documented as of this encounter
--- OUTSIDE RECORDS SUMMARY | 2025-04-06 08:15 | XMS_ITS | Encounter Summary ---
Author Organization [facility] Address [address] [place] [address] Care Team Providers Care Rock Picker Name Role Phone Patsy Ta MD Primary Care Provider [phone] Encounter Details Date Type Department Care Team (Late st Contact Info) Description 03/02/1998 [facility] - [facility] [address] [address] [facility] [address] [place] [address] [place] [address] [address] Social History Tobacco Use Types Packs/Day Years Used Date Smoking Tobacco: Never Assessed Comments Unknown Sex and Gender Information Value Date Recorded Sex Assigned at Not on file Legal Sex Female 5:02 AM PROPERTY CONDITION ASSESSOR Gender Identity Not on file Sexual Orientation Not on file documented as of this encounter Plan of Treatment Not on file documented as of this encounter Visit Diagnoses Not on filedocumented in this encounter Care Teams Rock Picker Relationship Specialty [place] [address] [facility] [address] [place] [address] PCP - General 11/06/01 documented as of this encounter
--- OUTSIDE RECORDS SUMMARY | 2025-04-06 08:15 | XMS_ITS | Encounter Summary ---
Author Organization [facility] Address [address] [place] [address] Care Team Providers Care Relay Associate Name Role Phone Patsy Ta MD Primary Care Provider [phone] Encounter Details Date Type Department Care Team (Latest Contact Info) Description 03/21/1998 Outpatient Historical [facility] Landon Gibbs MD [facility] [address] [place] [address] Inguinal hernia without mention of obstruction or gangrene, unilateral or unspecified, (not specified as recurrent) (Primary Dx) Social History Tobacco Use Types Packs/Day Years Used Date Smoking Tobacco: Never Assessed Comments Unknown Sex and Gender Information Value Date Recorded Sex Assigned at Not on file Legal Sex Female 5:02 AM HOME MISSION WORKER Gender Identity Not on file Sexual Orientation Not on file documented as of this encounter Plan of Treatment Not on file documented as of this encounter Visit Diagnoses Diagnosis Inguinal hernia without mention of obstruction or gangrene, unilateral or unspecified, (not specified as recurrent)- Primary documented in this encounter Care Teams Relay Associate Relationship Specialty [place] [address] [place] [address] PCP - General 11/06/01 documented as of this encounter
[2025-04-06 08:16] VITALS: BP 178/88; PULSE 77; RESP 17; TEMP 36.7; O2SAT 98
--- OUTSIDE RECORDS SUMMARY | 2025-04-06 08:16 | XMS_ITS | Encounter Summary ---
Author Organization [facility] Address [address] [place] [address] Care Team Providers Care Project Officer Name Role Phone Patsy Ta MD Primary Care Provider [phone] Encounter Details Date Type Department Care Team (Latest Contact Info) Description 07/26/1999 Outpatient Historical [facility] [place] [address] [address] Other screening mammogram (Primary Dx) Social History Tobacco Use Types Packs/Day Years Used Date Smoking Tobacco: Never Assessed Comments Unknown Sex and Gender Information Value Date Recorded Sex Assigned at Not on file Legal Sex Female 5:02 AM ITALIAN TEACHER Gender Identity Not on file Sexual Orientation Not on file documented as of this encounter Plan of Treatment Not on file documented as of this encounter Visit Diagnoses Diagnosis Other screening mammogram- Primary documented in this encounter Care Teams Project Officer Relationship Specialty [place] [address] [facility] [address] [place] [address] PCP - General 11/06/01 documented as of this encounter
--- OUTSIDE RECORDS SUMMARY | 2025-04-06 08:16 | XMS_ITS | Encounter Summary ---
Author Organization [facility] Address [address] [place] [address] Care Team Providers Care Machine Ii Coremaker Name Role Phone Patsy Ta MD Primary Care Provider [phone] Encounter Details Date Type Department Care Team (Late st Contact Info) Description 08/29/1999 Outpatient [facility] Internal Medicine - [facility] [address] [address] [facility] [address] [place] [address] [place] [address] [address] Social History Tobacco Use Types Packs/Day Years Used Date Smoking Tobacco: Never Assessed Comments Unknown Sex and Gender Information Value Date Recorded Sex Assigned at Not on file Legal Sex Female 5:02 AM SHIPPER RECEIVER Gender Identity Not on file Sexual Orientation Not on file documented as of this encounter Plan of Treatment Not on file documented as of this encounter Visit Diagnoses Not on filedocumented in this encounter Care Teams Machine Ii Coremaker Relationship Specialty [place] [address] [facility] [address] [place] [address] PCP - General 11/06/01 documented as of this encounter
--- OUTSIDE RECORDS SUMMARY | 2025-04-06 08:16 | XMS_ITS | Encounter Summary ---
Author Organization [facility] Address [address] [place] [address] Care Team Providers Care Associate Professor Physician Name Role Phone Patsy Ta MD Primary Care Provider [phone] Encounter Details Date Type Department Care Team (Late st Contact Info) Description 03/08/1998 Outpatient [facility] Internal Medicine - [facility] [address] [address] [facility] [address] [place] [address] [place] [address] [address] Social History Tobacco Use Types Packs/Day Years Used Date Smoking Tobacco: Never Assessed Comments Unknown Sex and Gender Information Value Date Recorded Sex Assigned at Not on file Legal Sex Female 5:02 AM CUSTOMER SUPPLY 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
--- OUTSIDE RECORDS SUMMARY | 2025-04-06 08:17 | XMS_ITS | Encounter Summary ---
Author Organization [facility] Address [address] [place] [address] Care Team Providers Care Communications Associate Name Role Phone Patsy Ta MD Primary Care Provider [phone] Encounter Details Date Type Department Care Team (Late st Contact Info) Description 09/04/1998 Outpatient [facility] Internal Medicine - [facility] [address] [address] [facility] [address] [place] [address] [place] [address] [address] Social History Tobacco Use Types Packs/Day Years Used Date Smoking Tobacco: Never Assessed Comments Unknown Sex and Gender Information Value Date Recorded Sex Assigned at Not on file Legal Sex Female 5:02 AM BELL HOLE DIGGER Gender Identity Not on file Sexual Orientation Not on file documented as of this encounter Plan of Treatment Not on file documented as of this encounter Visit Diagnoses Not on filedocumented in this encounter Care Teams Communications Associate Relationship Specialty [place] [address] [facility] [address] [place] [address] PCP - General 11/06/01 documented as of this encounter
--- OUTSIDE RECORDS SUMMARY | 2025-04-06 08:17 | XMS_ITS | Encounter Summary ---
Author Organization [facility] Address [address] [place] [address] Care Team Providers Care Abstract Writer Name Role Phone Patsy Ta MD Primary Care Provider [phone] Encounter Details Date Type Department Care Team (Late st Contact Info) Description 07/27/1998 Outpatient [facility] Internal Medicine - [facility] [address] [address] [facility] [address] [place] [address] [place] [address] [address] [address] Social History Tobacco Use Types Packs/Day Years Used Date Smoking Tobacco: Never Assessed Comments Unknown Sex and Gender Information Value Date Recorded Sex Assigned at Not on file Legal Sex Female 5:02 AM ELECTROMECHANICAL INSPECTOR Gender Identity Not on file Sexual Orientation Not on file documented as of this encounter Plan of Treatment Not on file documented as of this encounter Visit Diagnoses Not on filedocumented in this encounter Care Teams Abstract Writer Relationship Specialty [place] [address] [facility] [[email or web address] [address] [place] [address] PCP - General 11/06/01 documented as of this encounter
--- OUTSIDE RECORDS SUMMARY | 2025-04-06 08:17 | XMS_ITS | Encounter Summary ---
Author Organization [facility] Address [address] [place] [address] Care Team Providers Care Chemistry Teacher Name Role Phone Patsy Ta MD Primary Care Provider [phone] Encounter Details Date Type Department Care Team (Late st Contact Info) Description 07/16/1998 Outpatient [facility] [address] Internal Medicine - [facility] [address] [address] [facility] [address] [place] [address] [place] [address] [address] Social History Tobacco Use Types Packs/Day Years Used Date Smoking Tobacco: Never Assessed Comments Unknown Sex and Gender Information Value Date Recorded Sex Assigned at Not on file Legal Sex Female 5:02 AM BLEACHER PULP Gender Identity Not on file Sexual Orientation Not on file documented as of this encounter Plan of Treatment Not on file documented as of this encounter Visit Diagnoses Not on filedocumented in this encounter Care Teams Chemistry Teacher Relationship Specialty [place] [address] [facility] [address] [place] [address] PCP - General 11/06/01 documented as of this encounter
--- OUTSIDE RECORDS SUMMARY | 2025-04-06 08:17 | XMS_ITS | Encounter Summary ---
Author Organization [facility] Address [address] [place] [address] Care Team Providers Care Fish Packer Name Role Phone Patsy Ta MD Primary Care Provider [phone] Encounter Details Date Type Department Care Team (Late st Contact Info) Description 10/11/1999 Outpatient [facility] Internal Medicine - [facility] [address] [address] [facility] [address] [place] [address] [place] [address] [address] Social History Tobacco Use Types Packs/Day Years Used Date Smoking Tobacco: Never Assessed Comments Unknown Sex and Gender Information Value Date Recorded Sex Assigned at Not on file Legal Sex Female 5:02 AM MILK ROUTE SUPERVISOR Gender Identity Not on file Sexual Orientation Not on file documented as of this encounter Plan of Treatment Not on file documented as of this encounter Visit Diagnoses Not on filedocumented in this encounter Care Teams Fish Packer Relationship Specialty [place] [address] [facility] [address] [place] [address] PCP - General 11/06/01 documented as of this encounter
--- OUTSIDE RECORDS SUMMARY | 2025-04-06 08:18 | XMS_ITS | Encounter Summary ---
Author Organization [facility] Address [address] [place] [address] Care Team Providers Care Human Resource Assistant Name Role Phone Patsy Ta MD Primary Care Provider [phone] Encounter Details Date Type Department Care Team (Late st Contact Info) Description 08/29/1998 Emergency [facility] Guillermo Galvez [address] [facility] [address] [place] [address] Er, Authorized P NO ADDRESS ON FILE Abdominal pain, other specified site (Primary Dx) Social History Tobacco Use Types Packs/Day Years Used Date Smoking Tobacco: Never Assessed Comments Unknown Sex and Gender Information Value Date Recorded Sex Assigned at Not on file Legal Sex Female 5:02 AM FOOD TRADES ASSISTANTS Gender Identity Not on file Sexual Orientation Not on file documented as of this encounter Plan of Treatment Not on file documented as of this encounter Visit Diagnoses Diagnosis Abdominal pain, other specified site- Primary documented in this encounter Care Teams Human Resource Assistant Relationship Specialty [place] [address] [address] [facility] [address] [place] [address] PCP - General 11/06/01 documented as of this encounter
--- OUTSIDE RECORDS SUMMARY | 2025-04-06 08:20 | XMS_ITS | Encounter Summary ---
Author Organization [facility] Address [address] [place] [address] Care Team Providers Care Creative Consultant Name Role Phone Patsy Ta MD Primary Care Provider [phone] Encounter Details Date Type Department Care Team (Late st Contact Info) Description 01/18/1998 Outpatient [facility] Internal Medicine - [facility] [address] [address] [facility] [address] [place] [address] [place] [address] [address] Social History Tobacco Use Types Packs/Day Years Used Date Smoking Tobacco: Never Assessed Comments Unknown Sex and Gender Information Value Date Recorded Sex Assigned at Not on file Legal Sex Female 5:02 AM ASSISTED LIVING COORDINATOR Gender Identity Not on file Sexual Orientation Not on file documented as of this encounter Plan of Treatment Not on file documented as of this encounter Visit Diagnoses Not on filedocumented in this encounter Care Teams Creative Consultant Relationship Specialty [place] [address] [facility] [address] [place] [address] PCP - General 11/06/01 documented as of this encounter
--- OUTSIDE RECORDS SUMMARY | 2025-04-06 08:21 | XMS_ITS | Encounter Summary ---
Author Organization [facility] Address [address] [place] [address] Care Team Providers Care Analyst Microbiology Lab Name Role Phone Patsy Ta MD Primary Care Provider [phone] Encounter Details Date Type Department Care Team (Late st Contact Info) Description 02/20/1998 Outpatient Historical [facility] DEPT Landon Gibbs MD [address] [place] [address] Social History Tobacco Use Types Packs/Day Years Used Date Smoking Tobacco: Never Assessed Comments Unknown Sex and Gender Information Value Date Recorded Sex Assigned at Not on file Legal Sex Female 5:02 AM PROPERTY MANAGEMENT COORDINATOR Gender Identity Not on file Sexual Orientation Not on file documented as of this encounter Plan of Treatment Not on file documented as of this encounter Visit Diagnoses Not on filedocumented in this encounter Care Teams Analyst Microbiology Lab Relationship Specialty [place] [address] [address] [facility] [address] [place] [address] PCP - General 11/06/01 documented as of this encounter
--- OUTSIDE RECORDS SUMMARY | 2025-04-06 08:21 | XMS_ITS | Encounter Summary ---
Author Organization [facility] Address [address] [place] [address] Care Team Providers Care Certified Ophthalmic Technician Name Role Phone Patsy Ta MD Primary Care Provider [phone] Encounter Details Date Type Department Care Team (Latest Contact Info) Description 02/20/1998 Outpatient Historical [facility] Gibbs, Landon Glass MD [address] [place] [address] Lump or mass in breast (Primary Dx) Social History Tobacco Use Types Packs/Day Years Used Date Smoking Tobacco: Never Assessed Comments Unknown Sex and Gender Information Value Date Recorded Sex Assigned at Not on file Legal Sex Female 5:02 AM CREELER Gender Identity Not on file Sexual Orientation Not on file documented as of this encounter Plan of Treatment Not on file documented as of this encounter Visit Diagnoses Diagnosis Lump or mass in breast- Primary documented in this encounter Care Teams Certified Ophthalmic Technician Relationship Specialty [place] [address] [address] [facility] [address] [place] [address] PCP - General 11/06/01 documented as of this encounter
--- OUTSIDE RECORDS SUMMARY | 2025-04-06 08:22 | XMS_ITS | Encounter Summary ---
Author Organization [facility] Address [address] [place] [address] Care Team Providers Care Shirt Line Operator Name Role Phone Patsy Ta MD Primary Care Provider [phone] Encounter Details Date Type Department Care Team (Late st Contact Info) Description 12/01/1997 Outpatient [facility] Internal Medicine - [facility] [address] [address] [facility] [address] [place] [address] [place] [address] [address] [address] Social History Tobacco Use Types Packs/Day Years Used Date Smoking Tobacco: Never Assessed Comments Unknown Sex and Gender Information Value Date Recorded Sex Assigned at Not on file Legal Sex Female 5:02 AM BUSINESS PROJECT MANAGER Gender Identity Not on file Sexual Orientation Not on file documented as of this encounter Plan of Treatment Not on file documented as of this encounter Visit Diagnoses Not on filedocumented in this encounter Care Teams Shirt Line Operator Relationship Specialty [place] [address] [facility] [address] [place] [address] PCP - General 11/06/01 documented as of this encounter
--- OUTSIDE RECORDS SUMMARY | 2025-04-06 08:22 | XMS_ITS | Encounter Summary ---
Author Organization [facility] Address [address] [place] [address] Care Team Providers Care Store Custodian Name Role Phone Patsy Ta MD Primary Care Provider [phone] Encounter Details Date Type Department Care Team (Late st Contact Info) Description 12/06/1997 Outpatient [facility] Internal Medicine - [facility] [address] [address] [facility] [address] [place] [address] [place] [address] [address] Social History Tobacco Use Types Packs/Day Years Used Date Smoking Tobacco: Never Assessed Comments Unknown Sex and Gender Information Value Date Recorded Sex Assigned at Not on file Legal Sex Female 5:02 AM CUSTOMER SERVICE ADMINISTRATOR Gender Identity Not on file Sexual Orientation Not on file documented as of this encounter Plan of Treatment Not on file documented as of this encounter Visit Diagnoses Not on filedocumented in this encounter Care Teams Store Custodian Relationship Specialty [place] [address] [facility] [address] [place] [address] PCP - General 11/06/01 documented as of this encounter
--- OUTSIDE RECORDS SUMMARY | 2025-04-06 08:22 | XMS_ITS | Clinical Summary ---
Author Organization [facility] Address [address] [place] [address] Phone Care Team Providers Care Nail Polish Brush Machine Feeder Name Role Phone Patsy Ta MD Primary Care Provider [phone] Allergies No known active allergies Medications levothyroxine 100 mcg tablet Take 100 mcg by mouth daily dynamiter. Active citalopram (CeleXA) 20 mg tablet Take [...] bedtime. Active fluticasone propionate (FLONASE) 50 mcg/spray [place], Suspension nasal inhaler Administer 2 Sprays in [...] file Legal Sex Female 5:02 AM LEAD WELDER Gender Identity Not on file Sexual Orientation [...] Screening 06/30/2029 Medical Devices Implanted Type Area Faith Healer Device Identifier Shelf Expiration Date Model / Serial / Lot Screw 2.2-S Diam2.2 Lg11mm Implanted:Qty: 1 on 03/01/2019 by Delroy Veliz DPM at [facility] Right: Toe 02/17/2023 S22 [id number] / / [id number] Description:item add c.s Procedures Procedure Name Priority Date/Time Associated Diagnosis Comments MAMMO SCREEN BILAT W OR WO CAD Routine 05/24/2020 3:17 PM LEAD WELDER Breast cancer screening by mammogram XR DEXA BONE DENSITY AXIAL 1 OR MORE SITES Routine 05/14/2018 9:03 AM LEAD WELDER Screening for osteoporosis from Last 3 Months or Most Recently Relevant to Health Maintenance Results * MAMMO SCREEN BILAT W OR WO CAD (05/24/2020 3:17 PM LEAD WELDER) Anatomical Region Laterality Modality Breast Bilateral Mammography 05/24/2020 3:17 PM LEAD WELDER Impressions 05/24/2020 3:53 PM LEAD WELDER IMPRESSION: No mammographic evidence of malignancy. RECOMMENDATIONS: Routine screening mammogram in one year. DICTATION LOCATION: [facility] Narrative 05/24/2020 3:53 PM LEAD WELDER MAMMO SCREEN BILAT W OR WO CAD [...] screening mammogram in one year. DICTATION LOCATION: [facility] us Patsy Ta MD MAMMO ORDERABLES Final Resul t * XR DEXA BONE DENSITY AXIAL 1 OR MORE SITES (05/14/2018 9:03 AM LEAD WELDER) Anatomical Region Laterality Modality Computed Radiogr aphy 05/14/2018 9:12 AM LEAD WELDER Narrative 05/14/2018 1:36 PM LEAD WELDER SUMMARY DEXA REPORT DATE: 05/14/2018 9:03 AM INDICATION: Post menopausal. History of thyroid medication and family history of osteoporosis. FINDINGS: The lowest bone mineral density is in the lumbar spine measuring 1.005 g/sq cm with a young adult T score of -1.4. This represents osteopenia. Please refer to the full report available in [facility] under the PACS Images tab. If a faxed copy is needed, please call [phone]. DICTATION LOCATION: [address] Procedure Note Sinan Burgess MD - 05/14/2018 SUMMARY DEXA REPORT DATE: 05/14/2018 9:03 AM INDICATION: Post menopausal. History of thyroid medication and family history of osteoporosis. FINDINGS: The lowest bone mineral density is in the lumbar spine measuring 1.005 g/sq cm with a young adult T score of -1.4. This represents osteopenia. Please refer to the full report available in [facility] under the PACS Images tab. If a faxed copy is needed, please call [phone]. DICTATION LOCATION: [address] [place] Patsy Ta MD DIAGNOSTIC IMAGING ORDERABLE S Final Result from Last 3 Months or Most Recently Relevant to Health Maintenance Insurance [facility] RX [facility] [employer] Advance Directives For more information, please contact: [phone] * Full Code (Latest Code Status on File) Date Activated Date Inactivated Comments 03/01/2019 9:30 AM 03/01/2019 3:07 PM Care Teams Nail Polish Brush Machine Feeder Relationship Specialty [place] [address] [facility] [address] [place] [address] PCP - General 11/06/01
--- OUTSIDE RECORDS SUMMARY | 2025-04-06 08:55 | XMS_ITS | Encounter Summary ---
Author Organization [facility] Address [address] [place] [address] Care Team Providers Care Button Tufting Machine Operator Name Role Phone Patsy Ta MD Primary Care Provider [phone] Encounter Details Date Type Department Care Team (Late st Contact Info) Description 12/06/1997 Outpatient [facility] Internal [facility] - [facility] [address] [address] [facility] [address] [place] [address] [place] [address] [address] Social History Tobacco Use Types Packs/Day Years Used Date Smoking Tobacco: Never Assessed Comments Unknown Sex and Gender Information Value Date Recorded Sex Assigned at Not on file Legal Sex Female 5:02 AM LOTTERY OFFICE MANAGER Gender Identity Not on file Sexual Orientation Not on file documented as of this encounter Plan of Treatment Not on file documented as of this encounter Visit Diagnoses Not on filedocumented in this encounter Care Teams Button Tufting Machine Operator Relationship Specialty [place] [address] [facility] [address] [place] [address] PCP - General 11/06/01 documented as of this encounter
--- OUTSIDE RECORDS SUMMARY | 2025-04-06 08:55 | XMS_ITS | Encounter Summary ---
Author Organization [facility] Address [address] [place] [address] Care Team Providers Care Draw String Knotter Name Role Phone Patsy Ta MD Primary Care Provider [phone] Encounter Details Date Type Department Care Team (Late st Contact Info) Description 12/01/1997 Outpatient [facility] Internal Medicine - [facility] [address] [address] [facility] [address] [place] [address] [place] [address] [address] Social History Tobacco Use Types Packs/Day Years Used Date Smoking Tobacco: Never Assessed Comments Unknown Sex and Gender Information Value Date Recorded Sex Assigned at Not on file Legal Sex Female 5:02 AM LABORER PETROLEUM REFINERY Gender Identity Not on file Sexual Orientation Not on file documented as of this encounter Plan of Treatment Not on file documented as of this encounter Visit Diagnoses Not on filedocumented in this encounter Care Teams Draw String Knotter Relationship Specialty [place] [address] [facility] [address] [place] [address] PCP - General 11/06/01 documented as of this encounter
--- OUTSIDE RECORDS SUMMARY | 2025-04-06 08:55 | XMS_ITS | Encounter Summary ---
Author Organization [facility] Address [address] [place] [address] Care Team Providers Care Supplier Manager Name Role Phone Patsy Ta MD Primary Care Provider [phone] Encounter Details Date Type Department Care Team (Latest Contact Info) Description 02/20/1998 Outpatient Historical HIS [facility] Gibbs, Landon Glass MD [address] [place] [address] Lump or mass in breast (Primary Dx) Social History Tobacco Use Types Packs/Day Years Used Date Smoking Tobacco: Never Assessed Comments Unknown Sex and Gender Information Value Date Recorded Sex Assigned at Not on file Legal Sex Female 5:02 AM LOG SNAKER Gender Identity Not on file Sexual Orientation Not on file documented as of this encounter Plan of Treatment Not on file documented as of this encounter Visit Diagnoses Diagnosis Lump or mass in breast- Primary documented in this encounter Care Teams Supplier Manager Relationship Specialty [place] [address] [address] [facility] [address] [place] [address] PCP - General 11/06/01 documented as of this encounter
--- OUTSIDE RECORDS SUMMARY | 2025-04-06 08:55 | XMS_ITS | Encounter Summary ---
Author Organization [facility] Address [address] [place] [address] Care Team Providers Care Isotope Technologist Name Role Phone Patsy Ta MD Primary Care Provider [phone] Encounter Details Date Type Department Care Team (Latest Contact Info) Description 11/06/2001 Outpatient Historical HIS [facility] [place] [address] [address] SCREENING MAMM-MAILG NEOPL-OTHER (Primary Dx) Social History Tobacco Use Types Packs/Day Years Used Date Smoking Tobacco: Never Assessed Comments Unknown Sex and Gender Information Value Date Recorded Sex Assigned at Not on file Legal Sex Female 5:02 AM DAIRY STORE MANAGER Gender Identity Not on file Sexual Orientation Not on file documented as of this encounter Plan of Treatment Not on file documented as of this encounter Visit Diagnoses Diagnosis Other screening mammogram- Primary documented in this encounter Care Teams Isotope Technologist Relationship Specialty [place] [address] [facility] [address] [place] [address] PCP - General 11/06/01 documented as of this encounter
--- OUTSIDE RECORDS SUMMARY | 2025-04-06 08:55 | XMS_ITS | Encounter Summary ---
Author Organization [facility] Address [address] [place] [address] Care Team Providers Care Operations Executive Name Role Phone Patsy Ta MD Primary Care Provider [phone] Encounter Details Date Type Department Care Team (Latest Contact Info) Description 12/04/2005 Outpatient Historical HIS [facility] [place] [address] [address] Other Screening Mammogram (Primary Dx) Social History Tobacco Use Types Packs/Day Years Used Date Smoking Tobacco: Never Assessed Comments Unknown Sex and Gender Information Value Date Recorded Sex Assigned at Not on file Legal Sex Female 5:02 AM SUPERVISOR LOGGING Gender Identity Not on file Sexual Orientation Not on file documented as of this encounter Plan of Treatment Not on file documented as of this encounter Visit Diagnoses Diagnosis Other screening mammogram- Primary documented in this encounter Care Teams Operations Executive Relationship Specialty [place] [address] [facility] [address] [place] [address] PCP - General 11/06/01 documented as of this encounter
--- OUTSIDE RECORDS SUMMARY | 2025-04-06 08:55 | XMS_ITS | Encounter Summary ---
Author Organization [facility] Address [address] [place] [address] Care Team Providers Care Plasterer Spot Name Role Phone Patsy Ta MD Primary Care Provider [phone] Encounter Details Date Type Department Care Team (Late st Contact Info) Description 01/18/1998 Outpatient [facility] Internal Medicine - [facility] [address] [address] [facility] [address] [place] [address] [place] [address] [address] Social History Tobacco Use Types Packs/Day Years Used Date Smoking Tobacco: Never Assessed Comments Unknown Sex and Gender Information Value Date Recorded Sex Assigned at Not on file Legal Sex Female 5:02 AM HOSPITAL ATTENDANT Gender Identity Not on file Sexual Orientation Not on file documented as of this encounter Plan of Treatment Not on file documented as of this encounter Visit Diagnoses Not on filedocumented in this encounter Care Teams Plasterer Spot Relationship Specialty [place] [address] [facility] [address] [place] [address] PCP - General 11/06/01 documented as of this encounter
--- OUTSIDE RECORDS SUMMARY | 2025-04-06 08:55 | XMS_ITS | Encounter Summary ---
Author Organization [facility] Address [address] [place] [address] Care Team Providers Care Molding Technician Name Role Phone Patsy Ta MD Primary Care Provider [phone] Encounter Details Date Type Department Care Team (Late st Contact Info) Description 12/07/1997 Outpatient [facility] Internal Medicine - [facility] [address] [address] [facility] [address] [place] [address] [place] [address] [address] Social History Tobacco Use Types Packs/Day Years Used Date Smoking Tobacco: Never Assessed Comments Unknown Sex and Gender Information Value Date Recorded Sex Assigned at Not on file Legal Sex Female 5:02 AM DESTATICIZER FEEDER Gender Identity Not on file Sexual Orientation Not on file documented as of this encounter Plan of Treatment Not on file documented as of this encounter Visit Diagnoses Not on filedocumented in this encounter Care Teams Molding Technician Relationship Specialty [place] [address] [facility] [address] [place] [address] PCP - General 11/06/01 documented as of this encounter
--- OUTSIDE RECORDS SUMMARY | 2025-04-06 08:55 | XMS_ITS | Encounter Summary ---
Author Organization [facility] Address [address] [place] [address] Care Team Providers Care Customs Director Name Role Phone Patsy Ta MD Primary Care Provider [phone] Encounter Details Date Type Department Care Team (Latest Contact Info) Description 02/10/2004 Outpatient Historical HIS [facility] [place] [address] [address] SCREENING MAMM-MAILG NEOPL-OTHER (Primary Dx) Social History Tobacco Use Types Packs/Day Years Used Date Smoking Tobacco: Never Assessed Comments Unknown Sex and Gender Information Value Date Recorded Sex Assigned at Not on file Legal Sex Female 5:02 AM SOUND PERSON Gender Identity Not on file Sexual Orientation Not on file documented as of this encounter Plan of Treatment Not on file documented as of this encounter Visit Diagnoses Diagnosis Other screening mammogram- Primary documented in this encounter Care Teams Customs Director Relationship Specialty [place] [address] [facility] [address] [place] [address] PCP - General 11/06/01 documented as of this encounter
--- OUTSIDE RECORDS SUMMARY | 2025-04-06 08:55 | XMS_ITS | Encounter Summary ---
Author Organization [facility] Address [address] [place] [address] Care Team Providers Care Superintendent Horticulture Name Role Phone Patsy Ta MD Primary Care Provider [phone] Encounter Details Date Type Department Care Team (Latest Contact Info) Description 04/05/2007 Outpatient Historical HIS [facility] [address] [facility] [address] [place] [address] Other Screening Mammogram Social History Tobacco Use Types Packs/Day Years Used Date Smoking Tobacco: Never Assessed Comments Unknown Sex and Gender Information Value Date Recorded Sex Assigned at Not on file Legal Sex Female 5:02 AM COMPOSITE SCIENCE TEACHER Gender Identity Not on file Sexual Orientation Not on file documented as of this encounter Plan of Treatment Not on file documented as of this encounter Visit Diagnoses Diagnosis Other screening mammogram documented in this encounter Care Teams Superintendent Horticulture Relationship Specialty [place] [address] [facility] [address] [place] [address] PCP - General 11/06/01 documented as of this encounter
--- OUTSIDE RECORDS SUMMARY | 2025-04-06 08:55 | XMS_ITS | Encounter Summary ---
Author Organization [facility] Address [address] [place] [address] Care Team Providers Care Transcribing Operators Supervisor Name Role Phone Patsy Ta MD Primary Care Provider [phone] Encounter Details Date Type Department Care Team (Late st Contact Info) Description 02/20/1998 Outpatient Historical HIS [facility] DEPT Landon Gibbs MD [address] [place] [address] Social History Tobacco Use Types Packs/Day Years Used Date Smoking Tobacco: Never Assessed Comments Unknown Sex and Gender Information Value Date Recorded Sex Assigned at Not on file Legal Sex Female 5:02 AM BMW SERVICE TECHNICIAN Gender Identity Not on file Sexual Orientation Not on file documented as of this encounter Plan of Treatment Not on file documented as of this encounter Visit Diagnoses Not on filedocumented in this encounter Care Teams Transcribing Operators Supervisor Relationship Specialty [place] [address] [facility] [address] [place] [address] PCP - General 11/06/01 documented as of this encounter
--- OUTSIDE RECORDS SUMMARY | 2025-04-06 08:56 | XMS_ITS | Encounter Summary ---
Author Organization [facility] Address [address] [place] [address] Care Team Providers Care Dairy Husbandman Name Role Phone Patsy Ta MD Primary Care Provider [phone] Encounter Details Date Type Department Care Team (Late st Contact Info) Description 07/16/1998 Outpatient [facility] Internal Medicine - 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
--- OUTSIDE RECORDS SUMMARY | 2025-04-06 08:56 | XMS_ITS | Encounter Summary ---
Author Organization [facility] Address [address] [place] [address] Care Team Providers Care Stove Installer Name Role Phone Patsy Ta MD Primary Care Provider [phone] Encounter Details Date Type Department Care Team (Latest Contact Info) Description 03/21/1998 Outpatient Historical [facility] Gibbs [facility] [address] [place] [address] Inguinal hernia without mention of obstruction or gangrene, unilateral or unspecified, (not specified as recurrent) (Primary Dx) Social History Tobacco Use Types Packs/Day Years Used Date Smoking Tobacco: Never Assessed Comments Unknown Sex and Gender Information Value Date Recorded Sex Assigned at Not on file Legal Sex Female 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
--- OUTSIDE RECORDS SUMMARY | 2025-04-06 08:56 | XMS_ITS | Encounter Summary ---
Author Organization [facility] Address [address] [place] [address] Care Team Providers Care Software Development Advisor Name Role Phone Patsy aT MD Primary Care Provider [phone] Encounter Details Date Type Department Care Team (Late st Contact Info) Description 08/29/1998 Emergency [facility] Guillermo Galvez [address] [facility] [address] [place] [address] Er, Authorized P NO ADDRESS ON FILE Abdominal pain, other specified site (Primary Dx) Social History Tobacco Use Types Packs/Day Years Used Date Smoking Tobacco: Never Assessed Comments Unknown Sex and Gender Information Value Date Recorded Sex Assigned at Not on file Legal Sex Female 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
--- OUTSIDE RECORDS SUMMARY | 2025-04-06 08:56 | XMS_ITS | Encounter Summary ---
Author Organization [facility] Address [address] [place] [address] Care Team Providers Care Folder Tier Name Role Phone Patsy Ta MD Primary Care Provider [phone] Encounter Details Date Type Department Care Team (Late st Contact Info) Description 09/04/1998 Outpatient [facility] Internal Medicine - [facility] [address] [address] [facility] [address] [place] [address] [place] [address] [address] Social History Tobacco Use Types Packs/Day Years Used Date Smoking Tobacco: Never Assessed Comments Unknown Sex and Gender Information Value Date Recorded Sex Assigned at Not on file Legal Sex Female 5:02 AM EXPORT CLERK Gender Identity Not on file Sexual Orientation Not on file documented as of this encounter Plan of Treatment Not on file documented as of this encounter Visit Diagnoses Not on filedocumented in this encounter Care Teams Folder Tier Relationship Specialty [place] [address] [facility] [address] [place] [address] PCP - General 11/06/01 documented as of this encounter
--- OUTSIDE RECORDS SUMMARY | 2025-04-06 08:56 | XMS_ITS | Encounter Summary ---
Author Organization [facility] Address 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
--- OUTSIDE RECORDS SUMMARY | 2025-04-06 08:56 | XMS_ITS | Encounter Summary ---
Author Organization [facility] Address [address] [place] [address] Care Team Providers Care Waste Disposal Leakage Tester Name Role Phone Patsy Ta MD Primary Care Provider [phone] Encounter Details Date Type Department Care Team (Late st Contact Info) Description 03/02/1998 Outpatient [facility] Internal Medicine - [facility] [address] [address] [facility] [address] [place] [address] [place] [address] [address] Social History Tobacco Use Types Packs/Day Years Used Date Smoking Tobacco: Never Assessed Comments Unknown Sex and Gender Information Value Date Recorded Sex Assigned at Not on file Legal Sex Female 5:02 AM RN PSYCH Gender Identity Not on file Sexual Orientation Not on file documented as of this encounter Plan of Treatment Not on file documented as of this encounter Visit Diagnoses Not on filedocumented in this encounter Care Teams Waste Disposal Leakage Tester Relationship Specialty [place] [address] [facility] [address] [place] [address] PCP - General 11/06/01 documented as of this encounter
--- OUTSIDE RECORDS SUMMARY | 2025-04-06 08:56 | XMS_ITS | Encounter Summary ---
Author Organization [facility] Address [address] [place] [address] Care Team Providers Care Foreign Student Adviser Teacher Name Role Phone Patsy Ta MD Primary Care Provider [phone] Encounter Details Date Type Department Care Team (Late st Contact Info) Description 08/29/1999 Outpatient [facility] Internal Medicine - [facility] [address] [address] [facility] [address] [place] [address] [place] [address] [address] Social History Tobacco Use Types Packs/Day Years Used Date Smoking Tobacco: Never Assessed Comments Unknown Sex and Gender Information Value Date Recorded Sex Assigned at Not on file Legal Sex Female 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
--- OUTSIDE RECORDS SUMMARY | 2025-04-06 08:56 | XMS_ITS | Clinical Summary ---
Author Organization [facility] Address [address] [place] [address] Phone Care Team Providers Care Closing Machine Operator Name Role Phone Patsy Ta MD Primary Care Provider [phone] Allergies No known active allergies Medications levothyroxine 100 mcg tablet Take 100 mcg by mouth daily barbecue cook. Active citalopram (CeleXA) 20 mg tablet Take [...] bedtime. Active fluticasone propionate (FLONASE) 50 mcg/spray [place], Suspension nasal inhaler Administer 2 Sprays in [...] on file Legal Sex Female 5:02 AM TROUT FARMER Gender Identity Not on file Sexual Orientation [...] Screening 06/30/2029 Medical Devices Implanted Type Area Chemical Process Engineer Device Identifier Shelf Expiration Date Model / Serial / Lot Screw 2.2-S Diam2.2 Lg11mm Implanted:Qty: 1 on 03/01/2019 by Delroy Veliz DPM at [facility] Right: Toe 02/17/2023 S22 [id number] / / [id number] Description:item add c.s Procedures Procedure Name Priority Date/Time Associated Diagnosis Comments MAMMO SCREEN BILAT W OR WO CAD Routine 05/24/2020 3:17 PM TROUT FARMER Breast cancer screening by mammogram XR DEXA BONE DENSITY AXIAL 1 OR MORE SITES Routine 05/14/2018 9:03 AM TROUT FARMER Screening for osteoporosis from Last 3 Months or Most Recently Relevant to Health Maintenance Results * MAMMO SCREEN BILAT W OR WO CAD (05/24/2020 3:17 PM TROUT FARMER) Anatomical Region Laterality Modality Breast Bilateral Mammography 05/24/2020 3:17 PM TROUT FARMER Impressions 05/24/2020 3:53 PM TROUT FARMER IMPRESSION: No mammographic evidence of malignancy. RECOMMENDATIONS: Routine screening mammogram in one year. DICTATION LOCATION: [facility] Narrative 05/24/2020 3:53 PM TROUT FARMER MAMMO SCREEN BILAT W OR WO CAD [...] screening mammogram in one year. DICTATION LOCATION: [facility] us Patsy Ta MD MAMMO ORDERABLES Final Resul t * XR DEXA BONE DENSITY AXIAL 1 OR MORE SITES (05/14/2018 9:03 AM TROUT FARMER) Anatomical Region Laterality Modality Computed Radiogr aphy 05/14/2018 9:12 AM TROUT FARMER Narrative 05/14/2018 1:36 PM TROUT FARMER SUMMARY DEXA REPORT DATE: 05/14/2018 9:03 AM INDICATION: Post menopausal. History of thyroid medication and family history of osteoporosis. FINDINGS: The lowest bone mineral density is in the lumbar spine measuring 1.005 g/sq cm with a young adult T score of -1.4. This represents osteopenia. Please refer to the full report available in [facility] under the PACS Images tab. If a faxed copy is needed, please call [phone]. DICTATION LOCATION: [address] Procedure Note Sinan Burgess MD - 05/14/2018 SUMMARY DEXA REPORT DATE: 05/14/2018 9:03 AM INDICATION: Post menopausal. History of thyroid medication and family history of osteoporosis. FINDINGS: The lowest bone mineral density is in the lumbar spine measuring 1.005 g/sq cm with a young adult T score of -1.4. This represents osteopenia. Please refer to the full report available in [facility] under the PACS Images tab. If a faxed copy is needed, please call [phone]. DICTATION LOCATION: [address] us Patsy Ta MD DIAGNOSTIC IMAGING ORDERABLE S Final Result from Last 3 Months or Most Recently Relevant to Health Maintenance Insurance [facility] [employer] Advance Directives For more information, please contact: [phone] * Full Code (Latest Code Status on File) Date Activated Date Inactivated Comments 03/01/2019 9:30 AM 03/01/2019 3:07 PM Care Teams Closing Machine Operator Relationship Specialty [place] [address] [facility] [address] [place] [address] PCP - General 11/06/01
--- OUTSIDE RECORDS SUMMARY | 2025-04-06 08:56 | XMS_ITS | Patient Health Record ---
Author Organization [facility] Address [address] [place] [address] Phone [phone] Care Team Providers Care Restaurant Shift Supervisor Name Role Phone Sivakumarjayneaundrea EDWIGE Nam Primary Care Provider [phone] Mary Izquierdo APRN Unavailable [phone] Liu Chandler Unavailable [phone] Giovanni Zarate Unavailable Allergies No Known Allergies Results Component Value Reference Range Flag Notes HIV Screen *HIV 1, 2 Ab, p24 Ag ([id number]) Order date: 10/26/2024 Reviewed date:12/28/2024 08:24:42 AM Interpretation: Performing Lab:[facility], [address] [facility], Phone - [phone], Director - Arian Notes/Report: HIV Ab/p24 Ag Screen Non Reactive Non Reactive HIV-1/HIV-2 antibodies and HIV-1 p24 antigen were NOT detected. There is no laboratory evidence of HIV infection. HIV Negative CBC With Differential/Platel et* Order date: 10/26/2024 Reviewed date:12/28/2024 08:24:42 AM Interpretation: Performing Lab:[facility], [address] [facility], Phone - [phone], Director - [facility] Notes/Report: WBC 2.9 3.4-10.8 x10E3/uL L RBC [...] Reviewed date:12/28/2024 08:24:42 AM Interpretation: Performing Lab:[facility] [place], [address] [facility], Phone - [phone], Director - [facility] Notes/Report: Glucose 87 70-99 mg/dL BUN 9 [...] 10/26/2024 Reviewed date:12/28/2024 08:24:42 AM Interpretation: Performing Lab:[facility] [place] [address] [facility], Phone - [phone], Director - Arian Notes/Report: QuantiFERON Incubation Incubation performed. QuantiFERON-TB Gold [...] Interpretation: Performing Lab: Notes/Report: ANA CRISTINA 0.000 Lipid Panel With LDL/HDL Rat io Order date: 12/15/2024 Reviewed date:12/28/2024 08:24:42 AM Interpretation: Performing Lab:[facility] [place], [address] [facility], [place], Phone - [phone], Director - [facility] Notes/Report: Cholesterol, Total 206 100-199 mg/dL H Triglycerides 56 0-149 mg/dL HDL Cholesterol 107 >39 mg/dL VLDL Cholesterol Jose 10 5-40 mg/dL LDL Chol Calc ([facility]) 89 0-99 mg/dL LDL/HDL Ratio 0.8 0.0-3.2 ratio LDL/HDL Ratio Men Women 1/2 Avg.Risk 1.0 1.5 Avg.Risk 3.6 3.2 2X Avg.Risk 6.2 5.0 3X Avg.Risk 8.0 6.1 CBC With Differential/Platel et* (Not yet reviewed by provider) Order date: 04/04/2025 Interpretation: Performing Lab:[facility], [address] [facility], [place], Phone - [phone], Director - [facility] Notes/Report: WBC 3.9 3.4-10.8 x10E3/uL RBC 4.11 3.77-5.28 x10E6/uL Hemoglobin 13.2 11.1-15.9 g/dL Hematocrit 40.1 34.0-46.6 % MCV 98 79-97 fL H MCH 32.1 26.6-33.0 pg MCHC 32.9 31.5-35.7 g/dL RDW 11.7 11.7-15.4 % Platelets 172 150-450 x10E3/uL Neutrophils 58 Not Estab. % Lymphs 29 Not Estab. % Monocytes 10 Not Estab. % Eos 2 Not Estab. % Basos 1 Not Estab. % Neutrophils (Absolute) 2.3 1.4-7.0 x10E3/uL Lymphs (Absolute) 1.1 0.7-3.1 x10E3/uL Monocytes(Absolute) 0.4 0.1-0.9 x10E3/uL Eos (Absolute) 0.1 0.0-0.4 x10E3/uL Baso (Absolute) 0.0 0.0-0.2 x10E3/uL Immature Granulocytes 0 Not Estab. % Immature Grans (Abs) 0.0 0.0-0.1 x10E3/uL CMP 14 Comprehensive Metabol ic Panel* (Not yet reviewed by provider) Order date: 04/04/2025 Interpretation: Performing Lab:[facility], [address] [facility], Phone - [phone], Director - Arian Notes/Report: Glucose 87 70-99 mg/dL BUN 14 8-27 mg/dL Creatinine 0.77 0.57-1.00 mg/dL eGFR 85 >59 mL/min/1.73 BUN/Creatinine Ratio 18 12-28 Sodium 142 134-144 mmol/L Potassium 4.3 3.5-5.2 mmol/L Chloride 101 96-106 mmol/L Carbon Dioxide, Total 25 20-29 mmol/L Calcium 9.5 8.7-10.3 mg/dL Protein, Total 5.9 6.0-8.5 g/dL L Albumin 3.9 3.9-4.9 g/dL Globulin, Total 2.0 1.5-4.5 g/dL Bilirubin, Total 1.0 0.0-1.2 mg/dL Alkaline Phosphatase 108 49-135 IU/L AST (SGOT) 23 0-40 IU/L ALT (SGPT) 21 0-32 IU/L 14 Panel Urine Drug Screen Order date: [...] neg BUP neg TCA neg FTY neg Vitamin B12 and Folate Order date: 12/15/2024 Reviewed date:12/28/2024 08:24:42 AM Interpretation: Performing Lab:[facility], [address] [facility], Phone - [phone], Director - Arian Notes/Report: Vitamin B12 631 249-1762 pg/mL L Folate (Folic Acid), Serum 8.3 >3.0 ng/mL A serum folate concentration of less than 3.1 ng/mL is considered to represent clinical deficiency. TSH+Free T4 Order date: 12/15/2024 Reviewed date:12/28/2024 08:24:41 AM Interpretation: Performing Lab:[facility] [place], [address] [facility], [place], Phone - [phone], Director - Arian Notes/Report: TSH-ICMA 1.9 Reference Range: Non- Adult 0.450-4.500 First Trimester 0.100-4.000 Second Trimester 0.200-4.000 Third Trimester 0.300-4.500 Free T4 by Dialysis/Dolly Pusher 1.3 This test was developed and its performance characteristics determined by [facility]. It has not been cleared or approved by the Food and Drug Administration. Reference Range: Pubertal Children and Adults: 0.8 - 1.7 14 Panel Urine Drug Screen Order date: [...] 92) Diagnosis 4 Colitis (K52.9) Referral Organization [facility] Referring Provider First Name Giovanni Referring Provider Last Name Tessa Referring Provider Speciality [facility] eros Referred Provider Specialty Gastroentero logy General Notes Aure Lopez RN 03:13:22 PM >confirmed taking insurance referral faxed letter mailed, Delmy Coelho 01/06/2025 10:20:17 AM >Left a message for client to return call to [facility] about outstanding referral as needing to know if an appointment has been scheduled., Aure Lopez RN 01/06/2025 11:23:46 AM >call from client who reports referral needs faxed again fax sent, Aure Lopez RN 01/27/2025 10:59:31 AM >outbound call to client obtained voice mail message left to return call text message sent letter mailed, Aure Lopez RN 01/30/2025 10:27:08 AM >client [...] her PCP and that needs updated at [employer] for orders be approved client to call today to make change, Aure Lopez RN 03/06/2025 10:09:57 AM >call to client obtained voice message mailbox is full [place] does not participate in [employer] and will not be able to make referrals Clinical Notes [facility] Continuous Drier Operator , [address] [place] [address] [address], [facility], , fax [phone] Referral Priority Routine Referral Date 12/15/2024 Referral Status Open Reason Patient has a histor y of DOTTY, had Gastric bypass in 2017, lost over 100 pounds, has not used a cpap in a long time, would like a referral to be evaluated. Diagnosis 1 History of obstructi ve sleep apnea (Z86.69) Referral Organization [facility] Referring Provider First Name Giovanni Referring Provider Last Name Tessa Referring Provider Speciality [facility] Referred Provider Specialty Sleep Medici ne General Notes Aure Lopez RN 05/2024 01:40:16 PM >confirmed taking clients insurance outbound call to obtain [place] score obtained voice mail message left to return call, Aure Lopez RN 12/22/2024 12:21:09 PM >[place] scoring faxed to Meliton coronado Melanie D 01/06/2025 10:20:17 AM >Left a message for client to return call to [facility] about outstanding referral as needing to know [...] PCP and that needs updated at insurance [employer] for orders be approved client to call today to make change, Aure Lopez RN 02/27/2025 10:23:35 AM >Call to [facility] who reports client was unable to change PCP in system because Jeanette Tessa is not in the system Santos informed, Aure Lopez RN 03/06/2025 10:07:57 AM >outbound call to client to inform of inability to send referrals due to [place] not participating in [employer] obtained voice message that mailbox is full, Aure Lopez RN 03/09/2025 10:33:30 AM >outbound call to client obtained voice mail message left to return call Clinical Notes [facility] nter for Sleep Medicine , [address] [facility], [facility], phone [phone], fax [phone] Referral Priority Routine Addressed Referral details can [...] use disorder (ICD_10 - F10.99) Not-Takin g Montelukast Sodium 10 MG Tablet 1 tablet [...] - I10) Active Vitamin D3 250 MCG (06614 UT) Capsule 1 capsule Orally Once a day Adult general medical exam (ICD_10 - Z00.00) Active 8 Hour Pain Relief Activ e Escitalopram Oxalate 20 MG Tablet 1 tablet Orally Once a day Adult general medical exam (ICD_10 - Z00.00) Active Black Cohosh Root 540 MG Capsule as directed Orally Adult general medical exam (ICD_10 - Z00.00) Active Allergy Nasal [place] 205.5 MCG/SPRAY Solution 2 sprays (1 spray [...] General Notes 2024 YVETTE TORRES (NISHA C: 77442 -5) Total Score : 3 Please specify Case Management Assessment First Visit 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 06639-4 I have housing (PN71344-4) Are you worried about losing your housing? 34675-4 Yes (LA33-6) What is the highest level of school that you have finished? 79892-0 More than high school (TH37663-4) What is your current work situation? 63059-7 Otherwise unemployed but not seeking work (ex. student, retired, disabled, unpaid primary critical care cns) (NB35032-6) In the past year, have you o r any family members you live with been unable to get any of the following when it was really needed? Check all that apply 88342-1 I do not have problems meeting my needs Has lack of transportation k ept you from medical appointments, meetings, work or from getting things needed for daily living? 86577-3 No (LA32-8) How often do you see or talk to people that you care about and feel close to? (For example: talking to friends on the phone, visiting friends or family, going to orthodox or club meetings) 73518-9 More than 5 times a week (KF30711-5) How stressed are you? Stress is when someone feels tense, nervous, anxious, or can\t sleep at night because their mind is troubled 31624-8 Not at all (PN6240-1) In the past year have you sp ent more than 2 nights in a row in a mcc, penitentiary, fci center, or juvenile correctional facility? 78851-7 No (LA32-8) Do you feel physically and e motionally safe where you currently live? 73576-3 Yes (LA33-6) In the past year, have you b een afraid of your partner or ex-partner? 98893-0 No (LA32-8) Are you a refugee? I [...] work (ex. student, retired, disabled, unpaid primary critical care cns) In the past year, have you o [...] phone, visiting friends or family, going to orthodox or club meetings) More than 5 times a week How stressed are you? Stress is when someone feels tense, nervous, anxious, or can\t sleep at night because their mind is troubled Not at all In the past year have you sp ent more than 2 nights in a row in a mcc, penitentiary, fci center, or juvenile correctional facility? 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 Alcohol use: Sober, actively trying to stay sober, attends AA meetings Problems Problem Type SNOMED Code ICD Code Dates Problem Status W/U Status Risk Notes Problem Hypertension (69413273) Hypertension (I10) Added On:03/20 Active confirmed Problem Depression (835032683) Depressio n (F32.9) Added On:12/2024 Active confirmed Problem Hypothyroidism (85665635) Hypothyroidism (E03.9) Added On:11/19 Active confirmed Problem Asthma (037119507) Asthma (J45.909) Added On:11/19 Active confirmed Problem Elevated blood pressure (14167763) Elevated blood pressure (I10) Added On:12/19 Active confirmed Problem Screening colonoscop y (921205118) Encounter for screening colonoscopy (Z12.11) Added On:11/19 Active confirmed Problem Diverticulitis (68137708) Diverticulitis (K57.92) Added On:11/19 Active confirmed Problem Alcohol use disorder (5894481476) Alcohol use disorder (F10.99) Added On:10/18 Active confirmed Problem Seasonal allergic rhinitis (813604783) Seasonal allergic reaction (J30.2) Added On:10/19 Active confirmed Problem Colitis (44780326) Colitis (K52.9) Added On:11/19 Active confirmed Problem Physical examination , complete (84801584) Adult general medical examination (Z00.00) Added On:11/19 Active confirmed Problem Pure hypercholesterolemia (431058150) Elevated cholesterol (E78.00) Added On:03/20 Active confirmed Problem Screening for malignant neoplasm of breast (378797262) Breast cancer screening by mammogram (Z12.31) Added On:11/19 Active confirmed Problem Obstructive sleep apnea syndrome (disorder) (85330462) History of obstructive sleep apnea (Z86.69) Added On:11/19 Active confirmed Problem History of bariatric surgical procedure (414837953) History of Rozina-en-Y gastric 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) Added On:11/19 Active confirmed Problem History of total hysterectomy (113043903) History of total hysterectomy (Z90.710) Added On:11/19 [...] Date Time Type Facility Location Provider Diagnosis 025 09:40 AM Office Visit, Est Pt., Level 3 (15695) [facility] [place] [address] Giovanni Zarate Hypertension I10 ; Elevated cholesterol E78.00 ; Syncope and collapse R55 and Dizziness R42 025 09:00 AM Office Visit, New Pt., Level 3 (35869) [place] [address] [place] [address] Mary Izquierdo Adult general medical exam Z00.00 025 09:20 AM Office Visit [facility] [address] [address] Liu Chandler Depression F32.9 and Alcohol abuse F10.10 025 03:20 PM Office Visit, Est Pt., Level 3 (97937) [place] [address] [place] [address] Nam Uribe Alcohol use disorder F10.99 025 08:20 AM Office Visit, Est Pt., Level 3 (08292) [place] [address] [place] [address] Nam Uribe Alcohol use disorder F10.99 025 01:00 PM Office Visit, Est Pt., Level 3 (81525) [place] [address] [place] [address] Giovanni Zarate Seasonal allergic reaction J30.2 025 08:00 AM Office Visit, Est Pt., Level 3 (70092) [place] [address] [place] [address] Nam Uribe Alcohol use disorder F10.99 025 02:00 PM Office Visit, Est Pt., Level 4 (93116) [place] [address] [place] [address] Giovanni Zarate Encounter for screening colonoscopy Z12.11 [...] AM Office Visit, Est Pt., Level 3 (00702) [facility] [place] [address] Nam Uribe Alcohol use disorder F10.99 ; Elevated blood pressure I10 and Vitamin B 12 deficiency E53.8 025 03:00 PM Office Visit, Est Pt., Level 4 (94757) [facility] [place] [address] Nam Uribe Alcohol use disorder F10.99 025 09:00 AM Office Visit, Est Pt., Level 3 (94400) [facility] [place] [address] Nam Uribe Alcohol use disorder F10.99 and B12 deficiency E53.8 025 08:40 AM Office Visit, Est Pt., Level 3 (38167) [facility] [place] [address] Giovanni Zarate Diverticulitis K57.92 and Depression F32.9 025 09:00 AM Office Visit [facility] [place] [address] Giovanni Zarate B12 deficiency E53.8 025 09:00 AM Office Visit [facility] [place] [address] Giovanni Zarate B12 deficiency E53.8 025 04:23 PM Telephone Encounter [facility] [place] [address] Nam Uribe 025 11:02 AM Telephone Encounter [facility] [place] [address] Nam Uribe 025 02:55 PM Telephone Encounter [facility] [address] [place] [address] Nam Uribe 025 11:39 AM Telephone Encounter [facility] [address] [facility] [place] [address] Nam Uribe 025 08:59 AM Telephone Encounter [facility] [address] [facility] [address] Nam Uribe 025 10:02 AM Telephone Encounter [facility] [address] [facility] [address] Nam Uribe Vitamin B12 deficiency E53.8 and History of Rozina-en-Y gastric bypass Z98.84 025 10:38 AM Telephone Encounter [facility] [address] [facility] [address] Giovanni Zarate 025 10:52 AM Telephone Encounter [facility] [place] [address] Nam Uribe 025 11:05 AM Telephone Encounter [address] [place] [address] Nam Uribe 025 09:05 AM Telephone Encounter [facility] [place] [address] Nam Uribe 025 08:34 AM Telephone Encounter [place] [address] [place] [address] Nam Uribe 025 02:24 PM Telephone Encounter [facility] [address] [facility] [address] Giovanni Zarate 025 08:49 AM Telephone Encounter [address] [place] [address] Giovanni Zarate Assessments Encounter Date Diagnosis (ICD [...] SUPR Programs: Based on an evaluation of [facility] Patient Placement Criteria, a recommendation for placement [...] - E53.8) Delmy Coelho 04/04/2025 08:55 AM BRIM PLATER >During B12 injection visit client reported that [...] Educated patient to establish with a new POT FLUXER in the area she is living now. [...] W/O Contrast 2024 CBC With Differential/Platelet* 04/04/20 CMP 14 Comprehensive Metabolic Panel* Next Appt Details Provider Name:Giovanni ochoa, 05/02/2025 09:00:00 AM, [address], [place], [address], Insurance Providers Payer Name Payer Address Payer Phone Subscriber Number Group Number Insured Name Patient Relationship to Insured Coverage Start Date Coverage End Date [facility] [address] [address] [place] [address] [id number] Elisa Iglesias Self - patient is the insured 5 MEDICARE PART A [address] [place] [address] [id number] Elisa Iglesias Self - patient is the insured [address] [facility] [address] [place] [address] [id number] Elisa Iglesias Self - patient is the insured 5 Medications Administered Medication Instructions Date of Administration Dosage Diagnosis (ICD Code) Notes Cyanocobalamin (B-12) 12/28/2024 1000 ug Delmy Coelho 12/28/2024 08:30 AM CDT >Given IM LMD, tolerated well. [facility]# [id number] . Cyanocobalamin (B-12) 02/07/2025 1000 ug Delmy Coelho 02/07/2025 09:20 AM CDT >Given IM RMD, tolerated well. [facility]# [id number] . Cyanocobalamin (B-12) 03/07/2025 1000 ug Coelho, Delmy D 03/07/2025 09:15 AM BRIM PLATER >Given IM LMD, tolerated well. [facility]# [id number] . Cyanocobalamin (B-12) 04/04/2025 1000 ug Coelho, Delmy D 04/04/2025 09:05 AM BRIM PLATER >Given IM RMD, tolerated well. [facility]# [id number] . Vivitrol 11/30/2024 380 mg Coelho, Delmy D 11/30/2024 08:45 AM CDT >Given Lt Gluteus, tolerated well. [facility]# [id number]. Vivitrol 12/28/2024 380 mg Coelho, Delmy D 12/28/2024 08:45 AM CDT >Given IM Rt Gluteus, tolerated well. [facility]# [id number]. Medical (General) History Medical History History ICD Code Hypothyroidism asthma colitis endometriosis Vitamin b12 deficiency Alcohol use disorder Irritable bowel syndrome Hypertension Surgical History Surgery Date(Month/Year) TOTAL HYSTERECTOMY 04/2000 cholecystectomy cervical fusion maniscus repair right and left c section hernia repair x 2 bunionectomy gastric bypass Hospitalization History Reason Date(Month/Year)
--- OUTSIDE RECORDS SUMMARY | 2025-04-06 08:56 | XMS_ITS | Encounter Summary ---
Author Organization [facility] Address [address] [place] [address] Care Team Providers Care Blade Changer Name Role Phone Patsy Ta MD Primary Care Provider [phone] Encounter Details Date Type Department Care Team (Late st Contact Info) Description 07/27/1998 Outpatient [facility] Internal Medicine - [facility] [address] [address] [facility] [address] [place] [address] [place] [address] [address] Social History Tobacco Use Types Packs/Day Years Used Date Smoking Tobacco: Never Assessed Comments Unknown Sex and Gender Information Value Date Recorded Sex Assigned at Not on file Legal 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
--- OUTSIDE RECORDS SUMMARY | 2025-04-06 08:56 | XMS_ITS | Encounter Summary ---
Author Organization [facility] Address [address] [place] [address] Care Team Providers Care Flight Tower Dispatcher Name Role Phone Patsy Ta MD Primary Care Provider [phone] Encounter Details Date Type Department Care Team (Late st Contact Info) Description 03/08/1998 Outpatient [facility] Internal Medicine - [facility] [address] [address] [facility] [address] [place] [address] [place] [address] [address] Social History Tobacco Use Types Packs/Day Years Used Date Smoking Tobacco: Never Assessed Comments Unknown Sex and Gender Information Value Date Recorded Sex Assigned at Not on file 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
--- OUTSIDE RECORDS SUMMARY | 2025-04-06 08:56 | XMS_ITS | Encounter Summary ---
Author Organization [facility] Address [address] [place] [address] Care Team Providers Care Lead Rider Name Role Phone Patsy Ta MD Primary Care Provider [phone] Encounter Details Date Type Department Care Team (Late st Contact Info) Description 10/11/1999 Outpatient [facility] Internal Medicine - [facility] [id number] [facility] [address] [place] [address] [place] [address] [address] Social History Tobacco Use Types Packs/Day Years Used Date Smoking Tobacco: Never Assessed Comments Unknown Sex and Gender Information Value Date Recorded Sex Assigned at Not on file Legal Sex Female 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
[2025-04-06] MEDS: ACETAMINOPHEN 500 MG TABLET 1000 MG PO (09:22)
--- NOTE | 2025-04-06 09:32 | ED_ITS ---
HPI - Extremity Injury (Upper) General Chief Complaint: Extremity Injury, Upper Stated Complaint: L arm pain s/p fall Time Seen by Provider: 04/06/25 08:18 History of Present Illness HPI narrative: Patient presents with left wrist pain after falling yesterday, landed on her outstretched left hand. She is having pain to the wrist and swelling, she had already been seeing a hand surgeon with plan for possible surgery due to severe arthritis. Related Data Home Medications ?Medication ?Instructions ?Recorded ?Confirmed ?Last Taken ?Type budesonide 3 mg mg PO 05/24/24 Unknown Hist ory capsule,delayed,extended release budesonide-formoterol HFA 160 inhalation 05/24/24 Unk nown History mcg-4.5 mcg/actuation aerosol inhaler gabapentin 300 mg capsule mg 05/24/24 Unknown History levothyroxine 100 mcg tablet mcg 05/24/24 Unknown His tory meloxicam 7.5 mg tablet mg 05/24/24 Unknown History montelukast 10 mg tablet mg 05/24/24 Unknown History Allergies Allergy/AdvReac Type Severity Reaction Status Date / Time No Known Allergies Allergy Verified 04/06/25 08:21 Review of Systems Review of Systems: All systems reviewed & are unremarkable except as noted in HPI and below Exam Narrative: EXAMINATION OF ORGAN SYSTEMS/BODY AREAS: Constitutional: Vital signs per nursing GENERAL:[No acute distress, non-toxic appearing.] HEAD: Normal with no signs of head trauma. EYES: EOMI, conjunctiva normal ENT: Hearing grossly intact LUNGS: Nonlabored breathing. HEART: [Regular rate and rhythm], radial pulse intact ABD: [Soft], [nontender to palpation] EXT: Normal range of motion, tenderness and swelling to the wrist left SKIN: Bruising across base of left hand, wrist NEURO: [Alert. No gross focal sensory or strength deficits.] PSYCH: Normal affect Course Vital Signs Vital signs: Vital Signs Temperature 98.1 F 04/06/25 08:16 Pulse Rate 77 04/06/25 08:16 Respiratory Rate 17 04/06/25 08:16 Blood Pressure 178/88 H 04/06/25 08:16 Pulse Oximetry 98 04/06/25 08:16 Oxygen Delivery Room Air 04/06/25 08:16 Temperature 98.1 F 04/06/25 08:16 Pulse Rate 77 04/06/25 08:16 Respiratory Rate 17 04/06/25 08:16 Blood Pressure 178/88 H 04/06/25 08:16 Pulse Oximetry 98 04/06/25 08:16 Oxygen Delivery Room Air 04/06/25 08:16 Procedures Orthopedic Splinting/Casting Injury #1: Splinting/Casting Date: 04/06/25 Splinting/Casting Time: 10:16 Side: left Upper Extremity Injury Location: wrist Upper Extremity Immobilizer: thumb spica Splint: customized in ED Pre-Procedure Neuro Vascular Exam: normal Post-Procedure Neuro Vascular Exam: normal MDM MDM Narrative Medical decision making narrative: Patient presenting here with fall on outstretched hand, happened yesterday, now with pain and swelling and bruising to the left base of thumb and wrist. She is neurovascularly intact, x-ray on my independent interpretation does show distal radial fracture. D/w Dr Mejía who will see her in clinic today and requests CT. D/w pt who is agreeable to plan; thumb spica splint placed. Differential Diagnosis Differential Diagnosis: Wrist fracture, sprain, hand fracture Imaging Data Radiologist's impression: ITS Impressions Wrist X-Ray 04/06/25 08:38 Impression: Distal radial fractureNondisplaced scaphoid fracture. Hand X-Ray 04/06/25 08:40 Impression: No acute fracture or malalignment. Wrist CT 04/06/25 08:59 IMPRESSION: 1. No scaphoid fracture lucency. If there is concern for possible occult scaphoid injury, correlation with wrist MRI recommended. 2. Mildly comminuted slightly impacted distal radius fracture with preservation of the radiocarpal articulation. Borderline separation of the scapholunate space may represent scapholunate ligamentous disruption. 3. Severe osteoarthritic degenerative changes including degenerative appearing subluxation of the thumb CMC joint. Discharge Plan Discharge Clinical Impression: Fracture of wrist, Scaphoid fracture Patient Disposition: Home Condition: Stable Instructions: Wrist Fracture in Adults (ED), Scaphoid Fracture (ED) Additional Instructions: Please follow-up with the orthopedic surgeon in his clinic TODAY. Keep your arm in the splint, you can always come back to the ER for any further issues. Patient Language: Lebanese Prescriptions: No Action meloxicam 7.5 mg tablet levothyroxine 100 mcg tablet gabapentin 300 mg capsule montelukast 10 mg tablet budesonide 3 mg capsule,delayed,extend.release PO budesonide-formoterol 160-4.5 mcg/actuation HFA aerosol inhaler INHALATION nitrofurantoin monohyd/m-cryst [Macrobid] 100 mg capsule 100 mg PO Q12H 5 Days Qty: 10 0RF Rx Instructions: must administer with a meal/food Follow-up/Referrals: Tessa,Giovanni Lozano APRN [Primary Care Provider, Unknown] Kevin Mejía MD [Physician, Orthopedics] - 1 Day
[2025-04-06 09:45] VITALS: BP 157/93; PULSE 76; RESP 16; TEMP 36.6; O2SAT 97
== END 2025-04-06 09:45 | disposition home or self-care (01) ==
PROVIDERS: Emergency Provider Emergency Medicine; PCP Registered Nurse
DX: S52.572A Other intraarticular fracture of lower end of left radius, initial encounter for closed fracture (principal); S62.002A Unspecified fracture of navicular [scaphoid] bone of left wrist, initial encounter for closed fracture; W19.XXXA Unspecified fall, initial encounter
CPT/HCPCS: 29125; 73110; 73130; 73200; 99284; A9270